=== PATIENT | male | born 1940 | race Caucasian/White ===

== ENCOUNTER → 2024-06-22 | Outpatient (CLI) | payer MEDICARE, OTHER, SELFPAY ==
--- NOTE | 2024-06-22 14:01 | CR.HP_ITS ---
CR - History & Physical General Arrival date:: 06/22/24 Arrival time:: 14:02 Date of Referral:: 03/21/24 Date of CR Evaluation:: 06/22/24 Referring Physician: Dr. Viktor Jacobs Primary Diagnosis: ST elevation NE involving the LAD onset 02/25/24 History of Present Cardiac Event Onset Date Acute Myocardial Infarction within 12 months:: Yes Sleep Disorder Evaluation Hx of Sleep Apnea: No Do you snore loudly (louder than talking or can be heard through closed doors)?: No Do you often feel tired/ fatigued/ sleepy during daytime?: No Has anyone observed you stop breathing during sleep?: No History of Hypertension (for STOP score): No STOP Results: Negative Advanced Directives Advanced Directives Power of Family Medicine Physician Assistant: Yes Living Will: Yes Advance Directives Information Provided: Yes Advance Directives on File: No DNR Order?:: No Past Medical History Covid-19 Screening Physicial Symptoms Other Clinical Concerns Exposure Risk Pertinent Comorbidities 65 years or older:: Yes Has a serious heart condition:: Yes Social History Smoking History Smoking Status: Former smoker Years Smokin Packs Smoked per Day: 1.5 (stopped 45 years ago) Alcohol Use Alcohol Usage: No Occupation Occupation (List type of work in comments):: Retired Hobbies, Recreation, Social Activities Hobbies: Other (tractors) Recreational Activities: I am able to engage in a few activities Social Environment Status Marital Status: Current Living Arrangements Living Environment:: Spouse Children How many children do you have?: 1 Do any of your children live nearby?: Yes Safety Do you feel safe in your surroundings?: Yes Assistance Do you need any assistance at home?: no Review of Systems Review of Systems Hints Review of Present Symptoms: Reports Shortness of Breath with Exertion, Dizziness/Lightheadedness, Fatigue and Appetite - Special Diet; Denies Shortness of Breath at Rest, PVD, Operative Discomfort, Angina, Wound Healing, Heart Arrhythmia/Irregularities, Appetite - Normal, Sleep - Normal or Sexual Changes Pain Is Patient Pain Free?: No Pain Location: back Pain Level: 02/26 Risk Factor Assessment Chief Complaint Chief Complaint: ST elevation NE involving the LAD onset 02/25/24 Vital Signs Pulse Ox: 98 Blood Pressure: 108/60 Pulse Pulse Rate: 90 Diabetes Diabetic History: Type II Nutrition Referral for Diabetes: No Obesity Height: 5 ft 10 in Weight:: 161 lb Weight in Pounds: 161.0 lbs Body Mass Index (BMI): 23.1 Nutritional Referral for Obesity: No Physical Inactivity Physical Inactivity: None Risk Stratification Risk Guidelines: Lowest Risk: Risk Factor for Smoking, Moderate Risk: Risk Factor for Obesity, Risk Factor for Hypertension and Risk Factor for Depression and Highest Risk: Risk Factor for Dyslipidemia, Risk Factor for Diabetes and Risk Factor for Sedentary Lifestyle For Smoking Smoking Risk Guidelines For Dyslipidemia Dyslipidemia Risk Guidelines For Diabetes Mellitus Diabetes Risk Guidelines For Obesity/Overweight Obesity/Overweight Risk Guidelines For Hypertension Hypertension Risk Guidelines For Sedentary Lifestyle Sedentary Lifestyle Risk Guidelines For Depression Depression Risk Guidelines Motivation Motivation to Participate On a scale of 1 to 10, how prepared are you to commit to attending program?: 5 What do you see as barriers to successfully being able to complete the program?: nothing What do you see as the benefits of succesfully completing the program? In other words, what do you hope to get out of participating in the program?: more energy, stronger Are there issues you are dealing with that will interfere with completing the program?: no Do you have a spouse or signficant other, family or friends who will help support you to complete the program?: yes
--- NOTE | 2024-06-22 14:09 | CR.ITP_ITS ---
Diagnosis General Information Admitting Diagnosis: ST elevation IA involving the LAD onset 02/25/24 Personal Learning Style:: Audio/Visual Barriers to Learning: No Barriers Stage of change r/t lifestyle modifications:: Contemplation Gave educational material for:: Treating Heart Disease, How The Heart Works, What it means to have Heart Disease, How Coronary Artery Disease is Diagnosed, Heart Procedures, What Heart Medications Do, Risk Factors & Modifications, Living an Active Life, Nutrition, Emotions & Heart Disease, Stress Management & Relaxation and Sleep Disorders & Heart Disease Education/Goals Cardiac Rehabilitation Goals Personal Goals: Initial Assessment: Improve management of stress and emotions, Improve energy level, Get back to work, or to resume activities faster, Improve muscle strength and endurance and Control risk factors (learn risk factor modification) Scale for measuring improvement of personal goals Diagnosis & Disease Process Outcomes/Goals: Pt IDs own risk factors & lifestyle modifications by Session 10, Verbalizes symptoms of angina & response by session 3., Pt independently manages and Other Additional Outcomes/Goals: Plan/Interventions: Assist Pt to ID & engage in lifestyle modification to reduce CVD risk, Instruct on individual risk factors, Review symptoms of angina & emergency actions, Review secondary diagnosis & identify educational needs. and Other see comment 30 day Reassessments:: Not Met 30 day Reassessments:: Not Met 30 day Reassessments:: Not Met 30 day Reassessments:: Not Met Final Reassessments:: Not Met Safety Referral to Physical Therapy: No Referral to [facility] Case Management: No Fall Risk Assessed:: Yes Assistive Devices:: Cane Exercise - Initial Assessment Visit Date of Eval: 06/22/24 (initial eval ) Mets: Pre-: >3 METS for 30 minutes by discharge, >5 METS for 30 minutes by discharge, >7 METS for 30 minutes by discharge and Unable to meet goal due to: (see comment below) Physician Prescribed Exercise Modalities: Treadmill, Rower, Schwinn Airdyne AD-7, SciFit Stepper, SciFit Pro- II Ergometer and SciFit Lateral [place] Frequency: 2x/week for 18 weeks [36 sessions] and 3x/week for 12 weeks [36 sessions] Intensity: 60-80% of age predicted maximum heart rate reserve Duration: 30 - 45 minutes Current METSs:: 3 Target Heart Rate:: 81-102 Resting Blood Pressure: 106/60 EKG Type: SR RBBB with left axis bifascicular block Outcomes & Goals Goals:: Verbalizes understanding of THR, RPE & goal METS by session 6, Documents in home exercise log/reports 30 min aerobic 5 day/wk by DC, Demonstrates accurate pulse taking by DC and Other additional outcome/goals: see below Intervention & Plan Exercise Program Goals: Instruct on personal THR & RPE, Instruct on MET level & personal MET goal, Show patient to take own pulse /validate performance until accurate, Instruct on home exercise and Other additional plan/int Physical Activity Home Exercise Physical Activity - Home Exercise: Safe Exercise, Warm-up, Self-monitoring, Cool-Down, Home Exercise > 30 min Daily and Sitting Time <3 hours/daily Outcomes & Goals Outcomes/Goals: Demonstrates correct Warm-up/exercise Cool-Down (S3) if = 2.5 METs, Verbalizes symptoms of exercise intolerance by Session 3 (S3), Demonstrate safe equipment use (S3) & follows exercise prescrition (6) and Other: See below Intervention & Plan Plan/Intervention: Instruct warm-up & cool-down if exercising at > 2 METs, Instruct on symptoms of exercise intolerance & actions to take, Instruct & monitor on saf, Assess intial functional capacity & safety risk and Other See below Nutrition - Initial Assessment Program Goals Nutrition Program Goals Patient has diagnosis of Hyperlipidemia (ICD E78)?: Yes Visit Date of Eval: 06/22/24 (initial eval ) Cholesterol/Lipids (Other Core Measures) Determine presence & major risk factors that modify LDL goal: Cigarette smoking, Hypertension or hypertensive medication, Low HDL cholesterol <40 mg/dL*, Family history of premature CHD in Male < 55 years: female <65 yearsFa and Age men > 45 years; women >/= 55 years Outcomes/Goals: Pt IDs own risk factors & lifestyle modifications by Session 10, Verbalizes symptoms of angina & response by session 3., Pt independently manages and Other Additional Outcomes/Goals: Intervention/Plan: Advocate for lipid panel cholesterol medication if applicable, Instruct on personal lipid levels & lipid goals/NCEP guidelines, Instruct on cholesterol and Other additional plan/int Referral to dietitian:: No Diabetes (Other Core Measures) Diabetes Type: Diagnosis Type II ICD-10 E11 Non-Insulin Dependent?: Yes Weight Mgt (Other Care) Height: 5 ft 10 in Weight:: 161 lb BMI: 23.1 Diagnosis Overweight/Obesity BMI> 30% ICD-10 E66: No Diagnosis High BMI/Morbid Obesity BMI> 35% ICD-10 Z68: No Outcomes/Goals: Pt sets, maintains & shows weight loss goal & trend during rehab and Other additional outcomes/goals Intervention/Plan: Instruct on ideal BMI & set weight loss goal w/patient, Assist pt to ID & incorporate diet changes for weight loss by S9, Refer to Structured Weight Loss program as appropriate, Encourage goal of using 250- 300dcal per session for weight loss and Other additional plan/interventions Healthy Eating Habits Will attend diet classes:: Yes Outcomes/Goals:: Consume diet rich in vegs,fruits,whole grain/high fiber,fish,lean meat, Limit sat/trans fats,cholesterol & added salts & sugars and Other additional outcome/goals: Intervention/Plan:: Assess current eating habits and Other Additional plan/interventions Education Gave educational materials for:: Signs & symptoms of hypoglycemia, Signs & symptoms of hyperglycemia, Relate diabetes to coronary artery disease and Healthy eating Core - Initial Assessment Visit Date of Eval: 06/22/24 (initial eval ) Medication Compliance Preventative Medication(s):: Aspirin, Clopidogrel/P2Y12 inhibit, Statin/lipid an d Beta kwame Doesn?t believe in the benefits of treatment?: No Believes medications are unnecessary or harmful?: No Has a concern about medication side effects?: No Expresses concern over the cost of medications?: No Outcomes/Goals: Verbalizes medications,desired effect & common side effects @ DC, Pt self-reports following medication regimen, Keeps card in wallet w/medications listed by DC and Other additional outcome/goals: Interventions/plans: Instruct on medication effects & side effects, Review medication list w/patient every two weeks, Instruct importance of taking meds as ordered & assist problem solving and Other additional Tobacco Use Tobacco Use: Non-smoker How long ago did you quit using tobacco products?: Greater than or equal to 6 months ago Years Smokin Do you use smokeless tobacco?: No Hypertension Resting Blood Pressure:: 108/60 [place] [employer] Hypertension Guidelines Outcomes/Goals: Able to verbalize/achieve optimal blood pressure <130/80, Incorporates diet changes & exercise for blood pressure control by DC and Other additional outcomes/goals Interventions/plan: Instruct on optimal blood pressure, hypertension & medications, Instruct on effects of sodium, alcohol, stress, exercise &hypertension and Other additional plan/interventions Tobacco Cessation Referral Smoking Cessation Referral:: No Individual Education/Counseling:: No Education Schedule Given:: Yes Psychosocial - Initial Assess VIsit Date of Eval: 06/22/24 (initial eval ) History of Emotional Disorders: Depression (pt states he has mild depression 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 ) Target Goals Target Goals Psychosocial Test Tool Used:: Jorge Banks QOL Cardiac and PHQ-9 Questionnaire phq-9 Severity Referral to Behavioral Health PS - Interventions: Yes: Attend Stress Management Classes Outcomes/Goals: See list Psychosocial Outcomes/Goals:: ID's personal stressors & 2 strategies to manage stress by discharge and Other Additional outcome/goals: Intervention/Plan: See List Interventions/Plan:: Assess stressors,coping strategies & signs of derpression on admission, Instruct/assist pt to develop coping & personal stress Mgt strategies, Refer to Behavioral Health if appropriate, Refer to Physician if appropriate, Instruct patient to recognize signs & symptoms of depression, Instruct patient to recog and Other additional plan/intervention RODOLFO-Q SV Test Statements CAD is a disease of the arteries in the heart: False Examples of risk factors for heart disease: True Angina is chest pain or discomfort: True The benefits of resistance training include: True Eating more meat and dairy products: I Don't Know Anti-platelet medications such as aspirin are important: True The only effective way to manage stress: I Don't Know An exercise warm-up slowly increases heart rate: True Prepared, processed foods usually have high sodium: True Depression is common after a heart attack: I Don't Know The statin medications lower cholesterol: True To control blood pressure, lower the amount of sodium: True If someone gets chest discomfort during walking: I Don't Know Transfats are partially hydrogenated vegetable oils: I Don't Know Sleep apnea that is not treated increases the risk: I Don't Know To control cholesterol, one should become a vegetarian: False Someone knows if he/she is exercising at the right level: I Don't Know Diabetes cannot be prevented with exercise & health eating: I Don't Know Stress is a large risk for heart attack: True A diet that can help lower blood pressure is rich in: True Total Score Total Correct Responses: 12 Nutrition Survey Nutrition Survey Instructions Scoring Instructions Exercise - 30-day Assessment Physician Prescribed Exercise Modalities: Treadmill, Rower, Schwinn Airdyne AD-7, SciFit Stepper, SciFit Pro- II Ergometer and SciFit Lateral Medical Massage Therapist Exercise - 60-day Assessment Physician Prescribed Exercise Modalities: Treadmill, Rower, Schwinn Airdyne AD-7, SciFit Stepper, SciFit Pro- II Ergometer and SciFit Lateral [place] Exercise - 90-day Assessment Physician Prescribed Exercise Modalities: Treadmill, Rower, Schwinn Airdyne AD-7, SciFit Stepper, SciFit Pro- II Ergometer and SciFit Lateral [place] Exercise - Final/Discharge Physician Prescribed Exercise Modalities: Treadmill, Rower, Schwinn Airdyne AD-7, SciFit Stepper, SciFit Pro- II Ergometer and SciFit Lateral [place] Frequency: 2x/week for 18 weeks [36 sessions] and 3x/week for 12 weeks [36 sessions] Intensity: 60-80% of age predicted maximum heart rate reserve Current METSs:: 3 Target Heart Rate:: 81-102 Nutrition - 30-Day Assessment Weight Mgt (Other Care) Height: 5 ft 10 in Weight:: 161 lb BMI: 23.1 Nutrition - 60-Day Assessment Weight Mgt (Other Care) Height: 5 ft 10 in Weight:: 161 lb BMI: 23.1 Core - 30-Day Assessment Tobacco Use Years Smokin Core - Final Assessment Hypertension Resting Blood Pressure:: 108/60 [employer] [employer] Hypertension Guidelines Core - 60-Day Assessment Hypertension Resting Blood Pressure:: 108/60 [place] [employer] Hypertension Guidelines Psychosocial - 30-Day Assess Target Goals Target Goals Referral to Behavioral Health PS - Interventions: Yes: Attend Stress Management Classes Psychosocial - 60-Day Assess Target Goals Target Goals Referral to Behavioral Health PS - Interventions: Yes: Attend Stress Management Classes Psychosocial - 90-Day Assess Target Goals Target Goals Referral to Behavioral Health PS - Interventions: Yes: Attend Stress Management Classes Psychosocial - Final Assessmen Target Goals Target Goals Referral to Behavioral Health PS - Interventions: Yes: Attend Stress Management Classes Nutrition - 90-Day Assessment Weight Mgt (Other Care) Height: 5 ft 10 in Weight:: 161 lb BMI: 23.1 Nutrition - Final Assessment Program Goals Patient has diagnosis of Hyperlipidemia (ICD E78)?: Yes Weight Mgt (Other Care) Height: 5 ft 10 in Weight:: 161 lb BMI: 23.1
[2024-06-22 14:21] VITALS: BP 108/60; PULSE 90; O2SAT 98; BMI 23.1
[2024-06-22 14:46] VITALS: BP 106/60; BP 108/60; BMI 23.1
== END | disposition home or self-care (01) ==
PROVIDERS: PCP Family Medicine; Referring Provider Internal Medicine Cardiovascular Disease; Visit Provider Internal Medicine Cardiovascular Disease
DX: I21.02 ST elevation (STEMI) myocardial infarction involving left anterior descending coronary artery (principal)

== ENCOUNTER 2024-06-27 14:20 | Outpatient (RCR) | payer MEDICARE, OTHER, SELFPAY ==
[2024-06-22 14:46] VITALS: BMI 23.1
== END 2024-07-19 23:59 ==
LOC: CR 14:20
PROVIDERS: PCP Family Medicine; Referring Provider Internal Medicine Cardiovascular Disease; Visit Provider Internal Medicine Cardiovascular Disease
DX: I21.02 ST elevation (STEMI) myocardial infarction involving left anterior descending coronary artery (principal)

== ENCOUNTER 2024-06-29 14:05 | Inpatient (IN) | payer MEDICARE, OTHER, SELFPAY ==
[2024-06-22 14:46] VITALS: BMI 23.1
[2024-06-29] VITALS (8 sets, daily range): BP systolic 97–113; BP diastolic 57–89; PULSE 44–84; RESP 14–24; TEMP 36.4–36.9; O2SAT 83–100; BMI 27.0; BMI 25.7
--- NOTE | 2024-06-29 15:49 | EDS_ITS ---
HPI HPI - GI History of Present Illness Chief Complaint: GI Bleed Informant: patient and spouse/S.O. Narrative Narrative: 84-year-old male presenting with melena. The states it has been for a few days, the patient states he thinks it has been for a week or more. He is feeling malaised and weak. He has dyspnea with exertion but that is not new. He had a minor fall couple days ago from feeling weak, injured both of his hands he denies any significant pain or disability right now. He was on aspirin but stopped that about a month ago due to having transient amount of bright of blood per rectum right after having an iron infusion, this is the second infusion he has had the second time that happened. He denies any abdominal pain, nausea, vomiting. Takes no anticoagulants. [facility] Medical History (Updated 06/29/24 @ 17:[address] Santino Cao MD) Iron deficiency anemia High cholesterol Diabetes mellitus, type II HTN (hypertension) Ulcer Home Medications ?Medication ?Instructions ?Recorded ?Last Taken ?Type aspirin 81 mg capsule 81 mg PO DAILY 06/29/24 Unknown History carvedilol 3.125 mg tablet 3.125 mg PO BID 06/29/24 Unknown History ciclopirox 8 % topical solution topical QWEEK 06/29/24 Unknown History clopidogrel 75 mg tablet 75 mg PO DAILY 06/29/24 Unknown History glyburide 5 mg tablet 5 mg PO BID 06/29/24 Unknown History losartan 25 mg tablet 12.5 mg PO DAILY 06/29/24 Unknown History metformin 1,000 mg tablet 1,000 mg PO BID 06/29/24 Unknown History pantoprazole 40 mg tablet,delayed 40 mg PO BID 06/29/24 Unknown History release rosuvastatin 20 mg tablet 20 mg PO DAILY 06/29/24 Unknown History Allergy/AdvReac Type Severity Reaction Status Date / Time oxycodone AdvReac CONFUSION Verified 06/29/24 14:09 tramadol AdvReac CONFUSION Verified 06/29/24 14:09 Social History Smoking Status: Former smoker ROS ROS ED Constitutional Constitutional ED: Reports malaise and weakness; Denies chills or fever(s) Eyes Eyes: Denies change in vision or diplopia ENT ENT ED: Denies rhinorrhea or sore throat Cardiovascular Cardiovascular: Denies chest pain or palpitations Respiratory/Chest Respiratory/Chest: Reports dyspnea on exertion; Denies cough Gastrointestinal Gastrointestinal: Reports melena; Denies abdominal pain, nausea or vomiting Genitourinary Genitourinary ED: Denies dysuria or hematuria Musculoskeletal Musculoskeletal: Denies back pain or neck pain Integumentary Denies abscess or rash Neurologic Neurologic: Denies headache(s), paresthesias or weakness Psychiatric Psychiatric: Denies anxiety or suicidal thoughts EXAM Physical Exam Const Vital Signs: 06/29/24 14:06 06/29/24 16:06 Temperature 97.8 F Temperature Source Oral Pulse Rate 76 Respiratory Rate 16 14 Blood Pressure 105/65 97/57 L Blood Pressure Mean 78 70 Pulse Ox 99 96 Oxygen Delivery Method Room Air Room Air Positive well nourished and well developed General Appearance ED: well developed and NAD HEENT Reports moist mucous membranes normocephalic and atraumatic Eyes PERRL and EOMs intact bilaterally Neck full ROM and supple Resp normal respiratory effort and clear to auscultation bilaterally Cardio regular rate, regular rhythm and peripheral pulses 2+ throughout Heart Sounds: murmur systolic III/ crescendo GI non-tender and non-distended GI Narrative: On rectal exam no tenderness. No active bleeding. Dark stool specimen present sent for Hemoccult. Auscultation: normoactive bowel sounds Palpation: soft Back/Spine no CVA tenderness General Back: other FROM Extremity normal to inspection General Extremety ED: Negative for edema, pulses abnormal or tenderness General Extremity: Negative for edema or pulses abnormal Neuro oriented x3, CN's II-XII intact bilaterally and no sensory deficits noted Sensorium / Orientation: awake and alert Motor Exam: strength 5/5 throughout Skin no rashes or lesions noted and no wounds MDM MDM MDM Narrative Medical decision making narrative: Suspect upper GI bleed. Patient is anemic and has an elevated BUN and his Hemoccult is positive. Empiric IV Protonix 40 mg ordered and given. Clinically and hemodynamically he is stable. His troponin is elevated, this may be related to his renal insufficiency, we will continue to follow that. His EKG shows no acute injury. Discussed with GI and hospitalist for admission. Agree no transfusion at this time. Lab Data Attestation: I reviewed the patient's lab results. (no old avail for comparison) Labs: Laboratory Results - last 24 hr 06/29/24 15:30 WBC 5.2 RBC 2.82 L Hgb 8.5 L Hct 26.5 L MCV 94.0 MCH 30.1 MCHC 32.1 RDW Std Deviation 69.2 H RDW Coeff of Artemio 20.1 H Plt Count 169 MPV 11.0 Immature Gran % (Auto) 0.200 Neut % (Auto) 66.9 Lymph % (Auto) 20.2 [place] % (Auto) 10.5 H Eos % (Auto) 1.4 Baso % (Auto) 0.8 Absolute Neuts (auto) 3.5 Absolute Lymphs (auto) 1.04 Nucleated RBC % 0 Differential Comment SCANNED Hypochromasia 1+ Anisocytosis 1+ Sodium 137 Potassium 4.7 Chloride 111 H Carbon Dioxide 18.0 L Anion Gap 8 BUN 41 H Creatinine 1.94 H Estim Creat Clear Calc 29.27 Est GFR (MDRD) Af Amer 43 L Est GFR (MDRD) Non-Af 35 L BUN/Creatinine Ratio 21.1 H Glucose 127 H Calcium 8.5 Total Bilirubin 0.50 AST 47 H ALT 37 Alkaline Phosphatase 438 H Troponin I High Sens 115 H Total Protein 6.8 Albumin 2.3 L Globulin 4.5 H Albumin/Globulin Ratio 0.5 L Blood Type B NEGATIVE Antibody Screen NEGATIVE Rhythm Strip Rhythm Strip: Sinus Rhythm Rate: 75 Ectopy: None EKG Initial EKG: Attestation: I personally reviewed and interpreted this EKG as follows: Interpretation: Sinus Rhythm, No Acute Injury Pattern, RBBB and Inverted T-Waves (V1-3) Prior EKG tracings: not available for review Prior: No Prior Management Discussion w/another healthcare provider: Hospitalist and Feather [employer]her (GI doctor friend) Discharge Plan Dx/Rx/DC Orders Clinical Impression: Acute upper GI bleed, ABLA (acute blood loss anemia), Renal insufficiency, Iron deficiency anemia Disposition Disposition: Acute Care Hospital [facility]
--- NOTE | 2024-06-29 15:52 | EKG12_ITS ---
Test Reason : Blood Pressure : */* mmHG Vent. Rate : 75 BPM Atrial Rate : 75 BPM P-R Int : 154 ms QRS Dur : 144 ms QT Int : 428 ms P-R-T Axes : 5 -52 31 degrees QTcB Int : 477 ms Normal sinus rhythm Right bundle branch block Left anterior fascicular block Bifascicular block Septal infarct , age undetermined Possible Lateral infarct , age undetermined Abnormal ECG Confirmed by YVONNE PEREA, RONAN ([id number]), fan mail editor ALYCIA MAN ([id number]) on 07/06/2024 2:10:01 P M Referred By: Santino Cao Confirmed By: RONAN RUSSELL MD
[2024-06-29 16:01] LABS: Absolute Lymphocyte Count 1.04 X10^3/uL (0.83-4.51); Absolute Neutrophil Count 3.5 X10^3/uL (2.0-7.7); Basophil# 0.04 X10^3/uL; Basophil% 0.8 % (0-1); Eosinophil# 0.07 X10^3/uL; Eosinophils% 1.4 % (0-5); Hematocrit 26.5 % (40-54); Hemoglobin 8.5 g/dL (13.0-16.5); Lymphocyte # 1.04 X10^3/ul (0.83-4.51); Lymphocyte % 20.2 % (19-41); Mean Corp Hgb Conc 32.1 g/dL (32-36); Mean Corpuscular Hgb 30.1 pg (27.0-32.0); Monocyte# 0.54 X10^3/uL; Monocyte% 10.5 % (0-10); NRBC Flagged by Analyzer 0 % (0-5); Neutrophil # 3.45 X10^3/uL (2.7-7.7); Neutrophil % 66.9 % (47-70); POSITIVE MORPHOLOGY YES; Platelet Count 169 K/mm3 (150-450); RBC Distribution Width CV 20.1 % (11.6-14.6); RBC Distribution Width SD 69.2 fl (35.1-43.9); Red Blood Count 2.82 M/mm3 (4.6-6.2); White Blood Count 5.2 K/mm3 (4.4-11.0)
[2024-06-29 16:17] LABS: Differential Indicated SCAN CRITERIA MET
[2024-06-29] MEDS: Pantoprazole Sodium 40 MG in 0.9% Normal Saline (100mL MB+) 100 ML 330 MG IV ×2 (16:19→21:27)
[2024-06-29 16:26] LABS: ALB/GLOB Ratio 0.5 RATIO (0.9-2.4); AST(SGOT) 47 U/L (15-37); Alanine Aminotransfer ALT/SGPT 37 U/L (16-61); Albumin, Serum 2.3 g/dL (3.2-5.0); Alkaline Phosphatase 438 U/L (45-117); Anion Gap 8 (5-15); BUN 41 mg/dL (7-18); BUN/Creat Ratio 21.1 RATIO (10-20); Calcium,Total 8.5 mg/dL (8.5-10.1); Chloride 111 mmol/L (98-107); Creatinine, Serum 1.94 mg/dL (0.70-1.30); EST Glomerular Filtration Rate 35 mL/min (>60); Est Glom Filt Rate - Afr Amer 43 mL/min (>60); Estimated Creatinine Clearance 29.27 ml/min; Globulin 4.5 g/dL (2.2-4.2); Glucose 127 mg/dL (74-106); Potassium 4.7 mmol/L (3.5-5.1); Protein, Total 6.8 g/dL (6.4-8.2); Sodium Level 137 mmol/L (136-145); Troponin-I HS 115 pg/mL (3.0-78.0)
[2024-06-29 16:51] LABS: Anisocytosis 1+; Differential Comment SCANNED; Hypochromasia 1+
--- NOTE | 2024-06-29 17:43 | HP.PCM.HOS_ITS ---
HPI - General General Date of Admission: 06/29/24 Date of Service: 06/29/24 Chief Complaint: Dark stools and worsening weakness HPI Narrative EMERSON GALAN, is a 84 M who presented to [facility] ED on 06/29/2024 with dark stools and worsening weakness. Patient has complicated recent past medical history, see below for full details. Patient was noted to be a poor historian but he reported having intermittent dark stools for the past several days. noted that these intermittent stools have been going on for about 1 week. She was trying to reach his GI doctor through [facility] to discuss further but could not get hold of them. She noticed that patient seemed to be getting weaker than his normal so she brought him in for further evaluation. In the ED patient was mildly hypotensive to the 90s over 50s but otherwise hemodynamically stable on room air. Labs notable for hemoglobin 8.5, MCV 94, creatinine 1.94, BUN 41, bicarb 18, AST 47, ALT 37, alk phos 438, INR 1.3. Troponin trend 115 to 119. EKG with no ST changes noted. Case was discussed with Dr. Mcgee who accepted the patient for admission. Hospitalist was then contacted for admission. I saw the patient at bedside in the ED, was present. Patient was mildly fatigued appearing but otherwise laying back comfortably in bed. He made appropriate eye contact with me and appeared to understand my questions but did not always answer appropriately. He was able to state that he was at [facility] and that it was June 2024. He appeared frustrated at times and stated he had difficulty remembering certain things. He did report feeling his belly felt somewhat distended. Also reported some lower extremity swelling and on exam he had pitting edema that was painful with palpation. He denied any shortness of breath at rest but did report shortness of breath with exertion. Denied any fevers or chills. notably downplayed patient's inability to answer some questions and stated that at times he was somewhat confused but this seemed to wax and wane without any clear pattern. Patient has primarily followed with [facility] but also followed with a GI physician through . Records thoroughly reviewed in [facility]. Patient was hospitalized at [facility] in December for worsening fatigue. Was found to have acute anemia with hemoglobin 7.2 down from 12.6 in November 2022. Had EGD done that showed nonbleeding gastric ulcers. Hemoglobin stabilized after this and he was discharged home. Was noted that he saw a GI physician through in late 2022 for concern for cirrhosis. Had follow-up EGD on 02/17 that showed ulcers with varices, portal hypertensive gastropathy and gastritis. He was then hospitalized in February for a STEMI. Presented with chest pain and was found to have ST elevations in V3 through V6. Had angioplasty and RIA x 2 to the mid and distal LAD done. TTE showed EF of 45% and moderate to severe aortic stenosis. He was ultimately discharged home on aspirin, Brilinta, Farxiga, losartan, Coreg, Protonix twice daily and rosuvastatin. His most recent CBC on 05/31 showed a hemoglobin of 9.5. BMP on 06/07 showed creatinine 1.54 and it appears baseline creatinine is around 1.3-1.5. Patient had a virtual visit with the GI physician on 06/15. This physician noted that overall the patient exhibited severe fatigue with failure to thrive and that there was functional and cognitive decline. He noted there was documentation of memory loss and cognitive decline in prior notes as well. Noted that downplayed these things during his conversation as well. Was also noted that patient had both ARB and SGLT2 inhibitor discontinued due to hypotension. [facility] Medical History (Updated 06/29/24 @ 17:[address] Santino Cao MD) Iron deficiency anemia High cholesterol Diabetes mellitus, type II HTN (hypertension) Ulcer Home Medications ?Medication ?Instructions ?Recorded ?Last Taken ?Type aspirin 81 mg capsule 81 mg PO DAILY 06/29/24 Unknown History carvedilol 3.125 mg tablet 3.125 mg PO BID 06/29/24 Unknown History ciclopirox 8 % topical solution topical QWEEK 06/29/24 Unknown History clopidogrel 75 mg tablet 75 mg PO DAILY 06/29/24 Unknown History glyburide 5 mg tablet 5 mg PO BID 06/29/24 Unknown History losartan 25 mg tablet 12.5 mg PO DAILY 06/29/24 Unknown History metformin 1,000 mg tablet 1,000 mg PO BID 06/29/24 Unknown History pantoprazole 40 mg tablet,delayed 40 mg PO BID 06/29/24 Unknown History release rosuvastatin 20 mg tablet 20 mg PO DAILY 06/29/24 Unknown History Allergy/AdvReac Type Severity Reaction Status Date / Time oxycodone AdvReac CONFUSION Verified 06/29/24 14:09 tramadol AdvReac CONFUSION Verified 06/29/24 14:09 Social History Smoking Status: Former smoker ROS Constitutional Constitutional: Reports fatigue; Denies chills or fever(s) Cardiovascular Cardiovascular: Reports dyspnea on exertion; Denies chest pain Respiratory/Chest Respiratory/Chest: Denies cough, productive cough or shortness of breath at rest Gastrointestinal Gastrointestinal: Reports melena; Denies abdominal pain, nausea or vomiting Neurologic Neurologic: Denies dizziness or headache(s) Vital Signs Vital Signs Vital Signs: 06/29/24 14:06 06/29/24 16:06 Temperature 97.8 F Temperature Source Oral Pulse Rate 76 Respiratory Rate 16 14 Blood Pressure 105/65 97/57 L Blood Pressure Mean 78 70 Pulse Ox 99 96 Oxygen Delivery Method Room Air Room Air Weight Weight: 85.4 kg Body Mass Index (BMI) 27.0 Physical Exam Const alert, oriented x3, no apparent distress and average body habitus Constitutional Narrative: Elderly male, mildly fatigued appearing, alert and oriented x 3 but generally appeared to have some degree of cognitive impairment and had difficulty with answering some high-level questions, was otherwise sitting up comfortably in bed and in no acute distress. General Appearance: cooperative HEENT normocephalic, head/scalp atraumatic, hearing grossly normal bilaterally, nasal mucous membranes and turbinates normal and moist oral mucous membranes Eyes PERRL, EOMs intact bilaterally and conjunctivae normal Neck full ROM Chest inspection of chest normal Resp normal respiratory effort, normal air movement, no use of accessory muscles and clear to auscultation bilaterally Cardio regular rate, regular rhythm, no murmurs and peripheral pulses 2+ throughout GI GI Narrative: Abdomen distended and with small fluid wave noted. Otherwise soft and nontender to palpation. Back/Spine normal ROM Extremity full ROM Extremity Narrative: +2-3 lower extremity pitting edema noted up to the knees. Skin no rashes or lesions noted Neuro moves all extremities Speech: speech normal Results Lab / Micro Data 06/29/24 15:30 06/29/24 15:30 Labs: Laboratory Results - last 24 hr 06/29/24 15:30: WBC 5.2, RBC 2.82 L, Hgb 8.5 L, Hct 26.5 L, MCV 94.0, MCH 30.1, MCHC 32.1, RDW Std Deviation 69.2 H, RDW Coeff of Artemio 20.1 H, Plt Count 169, MPV 11.0, Immature Gran % (Auto) 0.200, Neut % (Auto) 66.9, Lymph % (Auto) 20.2, M cait % (Auto) 10.5 H, Eos % (Auto) 1.4, Baso % (Auto) 0.8, Absolute Neuts (auto) 3.5, Absolute Lymphs (auto) 1.04, Nucleated RBC % 0, Differential Comment SCANNED, Hypochromasia 1+, Anisocytosis 1+, Sodium 137, Potassium 4.7, Chloride 111 H, Carbon Dioxide 18.0 L, Anion Gap 8, BUN 41 H, Creatinine 1.94 H, Estim Creat Clear Calc 29.27, Est GFR (MDRD) Af Amer 43 L, Est GFR (MDRD) Non-Af 35 L, BUN/Creatinine Ratio 21.1 H, Glucose 127 H, Calcium 8.5, Total Bilirubin 0.50, A ST 47 H, ALT 37, Alkaline Phosphatase 438 H, Troponin I High Sens 115 H, Total Protein 6.8, Albumin 2.3 L, Globulin 4.5 H, Albumin/Globulin Ratio 0.5 L, Blood Type B NEGATIVE, Antibody Screen NEGATIVE Micro: Microbiology 06/29/24 16:00 Stool Stool Occult Blood (TONA) - Final Occult Blood Positive Rhythm Strip Rhythm Strip: Sinus Rhythm Rate: 75 Ectopy: None Assessment & Plan Assessment/Plan (1) Acute upper GI bleed: (2) ABLA (acute blood loss anemia): (3) Renal insufficiency: PLAN: Plan Patient is an 84-year-old male who presented [facility] ED on 06/29/2024 with dark stools and worsening weakness. 1. Concern for recurrent upper GI bleed with acute on chronic blood loss anemia ? Admit under inpatient status to PCU. GI consulted. Hemoglobin 8.5 on admit, slightly down from last hemoglobin 9.5 on 05/31. Had upper GI bleed in December and EGD showed nonbleeding gastric ulcers. Repeat EGD on 02/17 showed ulcers with varices, portal hypertensive gastropathy and gastritis. Patient has had to remain on dual antiplatelet therapy given recent history of STEMI, suspect recurrent upper GI bleed in setting of DAPT. N.p.o. at midnight with plan for EGD tomorrow. IV PPI twice daily. Continuing aspirin and Plavix as noted below. Follow-up a.m. CBC. 2. Recent history of STEMI with stenting, history of CAD, hypertension, hyperlipidemia ? Hospitalized at [facility] with STEMI in February. Had RIA x 2 placed to the mid and distal LAD. Recommendation per cardiology was for uninterrupted DAPT for 1 year. Given this recommendation, will continue aspirin and Plavix despite concern for recurrent GI bleed as noted above. Borderline hypotension with CESIA on admit, will hold home beta-kwame and MATEUS inhibitor. 3. Concern for cirrhosis with ascites, concern for hepatic encephalopathy ? GI consulted as above. Follows with both main campus medical center and GI, see HPI for further details. Had abdominal distention with fluid wave noted on exam on admit. Abdominal ultrasound showed hepatic cirrhosis with ascites and diffuse fatty infiltration of the liver with no focal lesions identified. MELD score of 18 on admit. Radiology consulted for diagnostic and therapeutic paracentesis. Ammonia level ordered. Appreciate further GI recommendations. 4. Acute on chronic debility ? PT/OT/case management consulted. 5. CESIA on CKD stage IIIa ? Creatinine 1.94 on admit, baseline around 1.3-1.5. Suspect mild prerenal CESIA but cannot rule out some degree of hepatorenal syndrome. Gave 500 cc normal saline bolus and 1 dose of IV albumin on admit. Follow-up a.m. BMP and monitor urine output. Urine studies ordered. 6. Type 2 diabetes mellitus ? Blood glucose 127 on admit. A1c 6.6%. Hold home metformin and glyburide. Will treat with sliding scale insulin with meals while inpatient. DVT prophylaxis: SCDs CODE STATUS: Full code, verified. Verified with patient and on admission. Expected disposition: TBD Total clinical time spent by myself addressing the patient's medical issues, reviewing all the data, and collaborating with patient's care team: 75 minutes. Charges/Coding Visit Charges Inpatient E&M: 70040 Init Hosp L3
--- NOTE | 2024-06-29 18:16 | US_ITS ---
INDICATION: concern for cirrhosis w/ ascites EXAMINATION: Ultrasound US Abdomen Complete TECHNIQUE: [place]ajas-scale and color Doppler imaging was performed of the abdomen. COMPARISON: None. FINDINGS: LIVER: There is mild increased echogenicity. No focal hepatic lesion. No intrahepatic biliary ductal dilatation. Irregular hepatic margins suggesting cirrhosis. Scattered ascites. GALLBLADDER AND BILIARY TREE: No shadowing gallstone or gallbladder wall thickening is demonstrated. The proximal common bile duct measures 6 mm, which is within normal limits for the patient''s age. SONOGRAPHIC NEW''S SIGN: Negative. PANCREAS: Largely obscured by overlying bowel gas. SPLEEN: The spleen is normal in size and homogeneous in echotexture. KIDNEYS: There is no hydronephrosis. No shadowing calculus, focal lesion, or perinephric collection is demonstrated. VESSELS: Aorta not visualized due to bowel gas. The IVC is patent. US/Abdomen Complete IMPRESSION: Hepatic cirrhosis with ascites. Diffuse fatty infiltration of the liver, no focal lesion identified. Electronically Signed: Jarad Corrales MD at 22:02 EST ,
[2024-06-29 18:34] LABS: Troponin-I HS 119 pg/mL (3.0-78.0)
[2024-06-29 18:42] LABS: International Normalized Ratio 1.3; Prothrombin Time (Protime)PT. 16.3 SECONDS (11.7-14.9)
[2024-06-29] MEDS: 0.9% Normal Saline (500mL Bag) 500 ML IV (19:36)
[2024-06-29] MEDS: Albumin Human 25% (100 mL) 25 GM/100 ML BAG IV (19:36)
[2024-06-29 21:05] LABS: Ferritin 165 ng/mL (26-388); Iron 64 ug/dL (65-175); Iron Binding Capacity,Total 200 ug/dL (250-450)
[2024-06-29] MEDS: Atorvastatin Calcium 40 MG Tablet PO (21:21)
[2024-06-29 21:23] LABS: Hemoglobin A1c 6.6 % (3.8-5.6)
[2024-06-29 21:49] LABS: Bedside Glucose 63 mg/dL (74-106)
--- NOTE | 2024-06-29 22:28 | CON.PCM.GI_ITS ---
HPI Consult Data Date of Consult: 06/29/24 HPI Narrative Reason for Consultation: GI bleeding HPI Narrative: EMERSON GALAN, is a84 M who presented to [facility] ED on 06/29/2024 with dark stools and worsening weakness. Patient has complicated recent past medical history, see below for full details. Patient was noted to be a poor historian but he reported having intermittent dark stools for the past several days. noted that these intermittent stools have been going on for about 1 week. She was trying to reach his GI doctor through [facility] to discuss further but could not get hold of them. She noticed that patient seemed to be getting weaker than his normal so she brought him in for further evaluation. In the ED patient was mildly hypotensive to the 90s over 50s but otherwise hemodynamically stable on room air. Labs notable for hemoglobin 8.5, MCV 94, creatinine 1.94, BUN 41, bicarb 18, AST 47, ALT 37, alk phos 438, INR 1.3. Troponin trend 115 to 119. EKG with no ST changes noted. Case was discussed with Dr. Mcgee who accepted the patient for admission. Hospitalist was then contacted for admission. I saw the patient at bedside in the ED, was present. Patient was mildly fatigued appearing but otherwise laying back comfortably in bed. He made appropriate eye contact with me and appeared to understand my questions but did not always answer appropriately. He was able to state that he was at [facility] and that it was June 2024. He appeared frustrated at times and stated he had difficulty remembering certain things. He did report feeling his belly felt somewhat distended. Also reported some lower extremity swelling and on exam he had pitting edema that was painful with palpation. He denied any shortness of breath at rest but did report shortness of breath with exertion. Denied any fevers or chills. notably downplayed patient's inability to answer some questions and stated that at times he was somewhat confused but this seemed to wax and wane without any clear pattern. Patient has primarily followed with [facility] but also followed with a GI physician through . Records thoroughly reviewed in [facility]. Patient was hospitalized at [facility] in December for worsening fatigue. Was found to have acute anemia with hemoglobin 7.2 down from 12.6 in November 2022. Had EGD done that showed nonbleeding gastric ulcers. Hemoglobin stabilized after this and he was discharged home. It was noted that he saw a GI physician through in late 2022 for concern for cirrhosis. Had follow-up EGD on 02/17 that showed ulcers with varices, portal hypertensive gastropathy and gastritis. He was then hospitalized in February for a STEMI. Presented with chest pain and was found to have ST elevations in V3 through V6. Had angioplasty and RIA x 2 to the mid and distal LAD done. TTE showed EF of 45% and moderate to severe aortic stenosis. He was ultimately discharged home on aspirin, Brilinta, Farxiga, losartan, Coreg, Protonix twice daily and rosuvastatin. His most recent CBC on 05/31 showed a hemoglobin of 9.5. BMP on 06/07 showed creatinine 1.54 and it appears baseline creatinine is around 1.3-1.5. Patient had a virtual visit with the GI physician on 06/15. This physician noted that overall the patient exhibited severe fatigue with failure to thrive and that there was functional and cognitive decline. He noted there was documentation of memory loss and cognitive decline in prior notes as well. [facility] Medical History Iron deficiency anemia High cholesterol Diabetes mellitus, type II HTN (hypertension) Ulcer Home Medications ?Medication ?Instructions ?Recorded ?Last Taken ?Type aspirin 81 mg capsule 81 mg PO DAILY 06/29/24 Unknown History carvedilol 3.125 mg tablet 3.125 mg PO BID 06/29/24 Unknown History ciclopirox 8 % topical solution topical QWEEK 06/29/24 Unknown History clopidogrel 75 mg tablet 75 mg PO DAILY 06/29/24 Unknown History glyburide 5 mg tablet 5 mg PO BID 06/29/24 Unknown History losartan 25 mg tablet 12.5 mg PO DAILY 06/29/24 Unknown History metformin 1,000 mg tablet 1,000 mg PO BID 06/29/24 Unknown History pantoprazole 40 mg tablet,delayed 40 mg PO BID 06/29/24 Unknown History release rosuvastatin 20 mg tablet 20 mg PO DAILY 06/29/24 Unknown History Allergy/AdvReac Type Severity Reaction Status Date / Time oxycodone AdvReac CONFUSION Verified 06/29/24 14:09 tramadol AdvReac CONFUSION Verified 06/29/24 14:09 Surgical History Status post reverse arthroplasty of right shoulder S/P appendectomy Social History Smoking Status: Former smoker ROS Constitutional Constitutional: Denies fatigue, fever(s), poor appetite, weight gain or weight loss Gastrointestinal Gastrointestinal: Denies belching, bloating, change in bowel habits, change in stool character, chewing difficulty, coffee ground emesis, constipation, cramping, diarrhea, dyspepsia, dysphagia, early satiety, excessive flatus, fecal incontinence, heartburn, hematemesis, hematochezia, hemorrhoids, loose stools, melena, nausea, odynophagia, rectal bleeding, tenesmus, vomiting or weight changes Physical Exam Const alert, oriented x3, no apparent distress and healthy appearing General Appearance: cooperative GI normal to inspection, nondistended, normoactive bowel sounds, soft to palpation, non-tender and non-distended Percussion: normal to percussion Rectal Exam: deferred Lab / Micro Data 06/30/24 02:50 06/30/24 02:50 Labs: Laboratory Results - last 24 hr 06/29/24 15:30: Hemoglobin A1c 6.6 H, Crossmatch See Detail 06/29/24 17:45: Iron 64 L, TIBC 200 L, Iron Saturation 32.0, Ferritin 165, T roponin I High Sens 119 H 06/29/24 18:30: PT 16.3 H, INR 1.3 06/29/24 21:24: POC Glucose 63 L 06/29/24 22:17: POC Glucose 56 L 06/29/24 23:01: POC Glucose 51 L 06/29/24 23:27: POC Glucose 102 06/29/24 23:35: Ammonia 22.0, Troponin I High Sens 131 H* 06/30/24 02:50: WBC 4.5, RBC 2.51 L, Hgb 7.5 L, Hct 23.6 L, MCV 94.0, MCH 29.9, MCHC 31.8 L, RDW Std Deviation 69.2 H, RDW Coeff of Artemio 20.1 H, Plt Count 113 L, MPV 10.1, Differential Comment SCANNED, Sodium 139, Potassium 4.5, Chloride 112 H, Carbon Dioxide 20.0 L, Anion Gap 7, BUN 43 H, Creatinine 1.89 H, Estim Creat Clear Calc 30.04, Est GFR (MDRD) Af Amer 44 L, Est GFR (MDRD) Non-Af 36 L, B UN/Creatinine Ratio 22.8 H, Glucose 106, Calcium 8.6, Total Bilirubin 0.60, AST 45 H, ALT 33, Alkaline Phosphatase 390 H, Total Protein 6.5, Albumin 2.6 L, Globulin 3.9, Albumin/Globulin Ratio 0.7 L 06/30/24 03:02: POC Glucose 94 06/30/24 05:00: Urine Color Yellow, Urine Clarity Clear, Urine pH 6.0, Ur Specific [place] 1.015, Urine Protein 30 H, Urine Glucose (UA) Normal, Urine Ketones Negative, Urine Occult Blood 10 H, Urine Nitrite Negative, Urine Bilirubin Negative, Urine Urobilinogen Normal, Ur Leukocyte Esterase 500 H, Urine RBC 0 SEEN, Urine WBC 0-5 SEEN, Ur Squamous Epith Cells 0 SEEN, Ur Transition Epith Cell 0-5 SEEN, Other Crystals COMMENT, Urine Bacteria 2+, Urine Mucus 0 SEEN 06/30/24 06:58: POC Glucose 111 H 06/30/24 11:30: POC Glucose 109 H Micro: Microbiology 06/29/24 16:00 Stool Stool Occult Blood (TONA) - Final Occult Blood Positive Rhythm Strip Rhythm Strip: Sinus Rhythm Rate: 75 Ectopy: None Imaging Radiology Impression Abdomen Ultrasound 06/29/24 18:16 IMPRESSION: Hepatic cirrhosis with ascites. Diffuse fatty infiltration of the liver, no focal lesion identified. Electronically Signed: Jarad Corrales MD at 22:02 EST , Assessment & Plan Assessment/Plan (1) Acute upper GI bleed: (2) ABLA (acute blood loss anemia): (3) Renal insufficiency: PLAN: Plan Patient is an 84-year-old male who presented [facility] ED on 06/29/2024 with dark stools and worsening weakness. Concern for recurrent upper GI bleed with acute on chronic blood loss anemia ? Differential diagnosis does include variceal bleed, portal gastropathy, angiodysplastic lesions, peptic ulcer disease secondary to antiplatelet therapy. Hemoglobin 8.5 on admit, slightly down from last hemoglobin 9.5 on 05/31. Had upper GI bleed in December and EGD showed nonbleeding gastric ulcers. Repeat EGD on 02/17 showed ulcers with varices, portal hypertensive gastropathy and gastritis. Patient has had to remain on dual antiplatelet therapy given recent history of STEMI, suspect recurrent upper GI bleed in setting of DAPT. Patient has been continuing aspirin and Plavix. He will need to undergo an upper endoscopy to evaluate his upper GI tract. He was explained alternatives, risk, benefits include not withstanding bleeding, infection, sepsis, perforation, need for charge and . He will have an ASA of 3. Charges/Coding Visit Charges Inpatient E&M: 51950 Init Hosp L3
[2024-06-29 22:37] LABS: Bedside Glucose 56 mg/dL (74-106)
[2024-06-29] MEDS: Dextrose 10%-Water 250 ML 999 ML IV (23:09)
[2024-06-29 23:19] LABS: Bedside Glucose 51 mg/dL (74-106)
[2024-06-29 23:52] LABS: Bedside Glucose 102 mg/dL (74-106)
[2024-06-30] VITALS (15 sets, daily range): BP systolic 97–152; BP diastolic 56–88; PULSE 75–112; RESP 16–28; TEMP 36.1–36.7; O2SAT 94–100
[2024-06-30 01:12] LABS: Troponin-I HS 131 pg/mL (3.0-78.0)
[2024-06-30 02:58] LABS: Hematocrit 23.6 % (40-54); Hemoglobin 7.5 g/dL (13.0-16.5); Mean Corp Hgb Conc 31.8 g/dL (32-36); Mean Corpuscular Hgb 29.9 pg (27.0-32.0); Mean Platelet Vol. 10.1 fl (6.2-12.0); POSITIVE MORPHOLOGY YES; Platelet Count 113 K/mm3 (150-450); RBC Distribution Width CV 20.1 % (11.6-14.6); RBC Distribution Width SD 69.2 fl (35.1-43.9); Red Blood Count 2.51 M/mm3 (4.6-6.2); White Blood Count 4.5 K/mm3 (4.4-11.0)
[2024-06-30 03:12] LABS: Scan Indicated on CBC? Y/N YES- FLAGS NOTED
[2024-06-30 03:16] LABS: ALB/GLOB Ratio 0.7 RATIO (0.9-2.4); AST(SGOT) 45 U/L (15-37); Alanine Aminotransfer ALT/SGPT 33 U/L (16-61); Albumin, Serum 2.6 g/dL (3.2-5.0); Alkaline Phosphatase 390 U/L (45-117); Anion Gap 7 (5-15); BUN 43 mg/dL (7-18); BUN/Creat Ratio 22.8 RATIO (10-20); Calcium,Total 8.6 mg/dL (8.5-10.1); Chloride 112 mmol/L (98-107); Creatinine, Serum 1.89 mg/dL (0.70-1.30); EST Glomerular Filtration Rate 36 mL/min (>60); Est Glom Filt Rate - Afr Amer 44 mL/min (>60); Estimated Creatinine Clearance 30.04 ml/min; Globulin 3.9 g/dL (2.2-4.2); Glucose 106 mg/dL (74-106); Potassium 4.5 mmol/L (3.5-5.1); Protein, Total 6.5 g/dL (6.4-8.2); Sodium Level 139 mmol/L (136-145)
[2024-06-30 03:34] LABS: Bedside Glucose 94 mg/dL (74-106)
[2024-06-30 04:20] LABS: Differential Comment SCANNED
[2024-06-30 06:08] LABS: Mucous, Urine 0 SEEN /hpf (<or=2+); Red Blood Cells-Urine 0 SEEN /hpf (0-5); Squamous Epithelial Cells - UA 0 SEEN /hpf (0-5)
[2024-06-30 06:13] LABS: Color, Urine Yellow (Yellow); Glucose, Dipstick Normal (Normal); Ketone-Dipstick Negative (Negative); Leukocyte Esterase-Dipstick 500 /ul (Negative); Nitrite-Dipstick Negative (Negative); Occult Blood-Urine 10 /ul (Negative); Protein-Dipstick 30 mg/dl (Negative); Specific Gravity, Urine 1.015 (1.002-1.030); Urine Bilirubin Dipstick Negative (Negative); Urine Clarity Clear (Clear); Urine Urobilinogen Normal (Normal)
[2024-06-30 06:41] LABS: Bacteria 2+ /hpf (None Seen); Transitional Epithelial - Ur 0-5 SEEN /hpf (0-5); White Blood Cells 0-5 SEEN /hpf (0-5)
[2024-06-30 07:16] LABS: Bedside Glucose 111 mg/dL (74-106)
--- NOTE | 2024-06-30 08:07 | PN.HOSP_ITS ---
Reason for Visit Reason for Visit: Diagnoses Acute posthemorrhagic anemia (06/29/24) Gastrointestinal hemorrhage, unspecified (06/29/24) Disorder of kidney and ureter, unspecified (06/29/24) Subjective Subjective Abdominal distention but not painful. Objective Data Objective Data Vital Signs: Vital Signs Temp Pulse Resp BP Pulse Ox O2 Del Method 36.6 C 85 18 119/56 L 100 Room Air 06/30/24 03:00 06/30/24 03:00 06/30/24 03:00 06/30/24 03:00 06/30/24 03:00 06/30/24 03:00 Oxygen Delivery Method Room Air Weight: 81.2 kg Body Mass Index (BMI) 25.7 Intake & Output: Intake and Output for Last 24 Hours 06/28/24 06/29/24 06/30/24 23:59 23:59 23:59 Intake Total 820 / 820 650 / 650 Balance 820 / 820 650 / 650 Lab / Micro Data 06/30/24 02:50 06/30/24 02:50 Labs: Laboratory Results - last 24 hr 06/29/24 15:30: WBC 5.2, RBC 2.82 L, Hgb 8.5 L, Hct 26.5 L, MCV 94.0, MCH 30.1, MCHC 32.1, RDW Std Deviation 69.2 H, RDW Coeff of Artemio 20.1 H, Plt Count 169, MPV 11.0, Immature Gran % (Auto) 0.200, Neut % (Auto) 66.9, Lymph % (Auto) 20.2, M cait % (Auto) 10.5 H, Eos % (Auto) 1.4, Baso % (Auto) 0.8, Absolute Neuts (auto) 3.5, Absolute Lymphs (auto) 1.04, Nucleated RBC % 0, Differential Comment SCANNED, Hypochromasia 1+, Anisocytosis 1+, Sodium 137, Potassium 4.7, Chloride 111 H, Carbon Dioxide 18.0 L, Anion Gap 8, BUN 41 H, Creatinine 1.94 H, Estim Creat Clear Calc 29.27, Est GFR (MDRD) Af Amer 43 L, Est GFR (MDRD) Non-Af 35 L, BUN/Creatinine Ratio 21.1 H, Glucose 127 H, Hemoglobin A1c 6.6 H, Calcium 8.5, Total Bilirubin 0.50, AST 47 H, ALT 37, Alkaline Phosphatase 438 H, Troponin I High Sens 115 H, Total Protein 6.8, Albumin 2.3 L, Globulin 4.5 H, A lbumin/Globulin Ratio 0.5 L, Blood Type B NEGATIVE, Antibody Screen NEGATIVE 06/29/24 17:45: Iron 64 L, TIBC 200 L, Iron Saturation 32.0, Ferritin 165, T roponin I High Sens 119 H 06/29/24 18:30: PT 16.3 H, INR 1.3 06/29/24 21:24: POC Glucose 63 L 06/29/24 22:17: POC Glucose 56 L 06/29/24 23:01: POC Glucose 51 L 06/29/24 23:27: POC Glucose 102 06/29/24 23:35: Ammonia 22.0, Troponin I High Sens 131 H* 06/30/24 02:50: WBC 4.5, RBC 2.51 L, Hgb 7.5 L, Hct 23.6 L, MCV 94.0, MCH 29.9, MCHC 31.8 L, RDW Std Deviation 69.2 H, RDW Coeff of Artemio 20.1 H, Plt Count 113 L, MPV 10.1, Differential Comment SCANNED, Sodium 139, Potassium 4.5, Chloride 112 H, Carbon Dioxide 20.0 L, Anion Gap 7, BUN 43 H, Creatinine 1.89 H, Estim Creat Clear Calc 30.04, Est GFR (MDRD) Af Amer 44 L, Est GFR (MDRD) Non-Af 36 L, B UN/Creatinine Ratio 22.8 H, Glucose 106, Calcium 8.6, Total Bilirubin 0.60, AST 45 H, ALT 33, Alkaline Phosphatase 390 H, Total Protein 6.5, Albumin 2.6 L, Globulin 3.9, Albumin/Globulin Ratio 0.7 L 06/30/24 03:02: POC Glucose 94 06/30/24 05:00: Urine Color Yellow, Urine Clarity Clear, Urine pH 6.0, Ur Specific [place] 1.015, Urine Protein 30 H, Urine Glucose (UA) Normal, Urine Ketones Negative, Urine Occult Blood 10 H, Urine Nitrite Negative, Urine Bilirubin Negative, Urine Urobilinogen Normal, Ur Leukocyte Esterase 500 H, Urine RBC 0 SEEN, Urine WBC 0-5 SEEN, Ur Squamous Epith Cells 0 SEEN, Ur Transition Epith Cell 0-5 SEEN, Other Crystals COMMENT, Urine Bacteria 2+, Urine Mucus 0 SEEN 06/30/24 06:58: POC Glucose 111 H Micro: Microbiology 06/29/24 16:00 Stool Stool Occult Blood (TONA) - Final Occult Blood Positive Radiography Diagnostic Testing: Radiology Impression Abdomen Ultrasound 06/29/24 18:16 IMPRESSION: Hepatic cirrhosis with ascites. Diffuse fatty infiltration of the liver, no focal lesion identified. Electronically Signed: Jarad Corrales MD at 22:02 EST , Rhythm Strip Rhythm Strip: Sinus Rhythm Rate: 75 Ectopy: None Physical Exam Const alert and no apparent distress HEENT head/scalp atraumatic and moist oral mucous membranes Resp normal respiratory effort, no retractions, no use of accessory muscles and clear to auscultation bilaterally Cardio regular rate, regular rhythm, S1 normal heart sound and S2 normal heart sound GI normal to inspection, nondistended, normoactive bowel sounds, soft to palpation and non-tender GI Narrative: distended, but not taught. Neuro Sensorium / Orientation: awake and alert Assessment & Plan Assessment/Plan (1) Acute upper GI bleed: (2) ABLA (acute blood loss anemia): (3) Renal insufficiency: PLAN: Plan upper GI bleed * h/o PUD and varcies complicated by DAPT * PPI IV BID * GI consult Acute blood loss anemia * 2/2 GI bleed * Hg down to 7.5 * given CAD, will transfuse to a hg 8 or greater CAD: * STEMI in February 2024. RIA x2 to mid and distal LAD at [facility]. (reviewed through [facility]) * continue ASA, clopidogrel, losartan and carvedilol * follow up with Dr. [place] as outpt. Cirrhosis * alpha-1 antitrypsin deficiency. No family history that he is aware of. * complicates care. * noted ascites * when condition permits, start diuretics. Ascites * paracentesis cancelled by radiology because he is on clopidogrel. Unfortuantely he cannot be taken off until February 2025. * Cancel paracentesis. Start Spironolactone and furosemide. Debility * PT OT Chronic conditions: * Type 2 diabetes mellitus? Blood glucose 127 on admit. A1c 6.6%. Hold home metformin and glyburide. Will treat with sliding scale insulin with meals while inpatient. DVT prophylaxis: SCDs CODE STATUS: Full code, verified. Verified with patient and on admission. Expected disposition: TBD DW patient's and brother. Charges/Coding Visit Charges Inpatient E&M: 47459 Subs Hosp L2
[2024-06-30] MEDS: Pantoprazole Sodium 40 MG in 0.9% Normal Saline (100mL MB+) 100 ML 330 MG IV ×2 (08:50→21:58)
--- NOTE | 2024-06-30 11:49 | CASEMGMT ---
ANA MIRZA Assessment: Face to Face with pt for initial transition planning/care coordination assessment. ANA MIRZA introduced self and role at [facility], pt voices understanding and consents to assessment. Pt is A&O x4 and answers all questions appropriately at this time. Pt sitting in chair, Pt and brother in room, pt agreeable to discussing DC plan with family present. Care providers, pharmacy, and demographics verified/updated. Strata: 1 Admitting Dx: Upper GI Bleed with Mild ABLA PCP: Jael Specialists: Friend, Gastrology; Nuzhat, [employer] Preferred Pharmacy: [facility] [place] Insurance: [employer] A B, [employer] Prescription Benefit: No LNOK: Living Arrangements: Pt lives with at home in a 2 story with 2 steps to enter in. ADLs: I with ADLs and IADLs. Transportation: Pt drives self some, usually drives. Denies concerns with transportation. DME: Walker, but does not use it. HHC/SNF: Previously used a HHC agency, does not recall agency. Pt I at baseline, but an assist X2 while at hospital. Pt agreeable to SNF if recommended, follow therapy. Pt states no further concerns/needs. CM to follow. Advised pt to ask CM if any further question/concerns/needs arise, voices understanding. Pt Goal: TBD Plan: TBD, follow therapy for recommendations. Mj PEREZ CM
[2024-06-30 12:14] LABS: Bedside Glucose 109 mg/dL (74-106)
[2024-06-30] MEDS: 0.9% Saline Lock 10 ML Syringe IV (14:34)
--- NOTE | 2024-06-30 15:07 | CHAPLAIN ---
Type of Pastoral Visit _x__ Initial Visit ___ Follow-up Visit ___ On-call Visit ___ General Patient Visit ___ Spiritual Assessment ___ Family Conference ___ Bereavement ___ Rapid Response ___ Code Blue ___ Other (describe below) Pastoral Care Referral From _x__ Patient _x__ Family ___ Nurse ___ Physician ___ Outside Solar Sales Consultant ___ Park Interpretive Specialist ___ Other (describe below) Sacrament/Intervention _x__ Active listening ___ Anointing ___ Caodaism ___ Bereavement ___ Communion ___ Tala exploration ___ ___ Life review _x__ Prayer ___ Reconciliation ___ Sacrament of Sick _x__ Supportive presence ___ Wedding ___ Other (describe below) Pastoral Comments patient is waiting for a scope to be done yet this afternoon; spouse and brother are in the room for support; pt reports being ready for the test and the answers that he needs; pt spouse speaks up about his recent health issues and the hope of better days ahead; presence and prayer accepted
--- NOTE | 2024-06-30 15:22 | CASEMGMT ---
Discharge Planning A list of?SNF providers including quality and resource use data and consistent with the patient's preferred geographic region, medical needs, and insurance network was created in [facility] Guide.? This list was provided to the SW. Dasia Martinez Discharge Planning Asst.
--- NOTE | 2024-06-30 15:26 | CASEMGMT ---
SW was informed patient's would like a list of SNF's. SW went to patient's room and provided patient's with the list of facilities. SW explained she would just need to pick her top 3-4 preferences and SW will take care of contacting the facilities. Daniela Coleman MEDICAL STAFFING COORDINATOR HIRAL
--- NOTE | 2024-06-30 15:36 | PRE.ANES_ITS ---
ASA Classification* ASA Classification ASA Classification: 3 Assessment & Plan Anesthesia* Anesthesia Assessment Anesthesia Assessment: Discussed sedation and/or anesthesia options, risks, benefits, and alternatives with patient/parents/legal guardian/POA. Questions invited. The patient/parents/legal guardian/POA seems to understand and agrees to proceed with anesthesia plan. Reviewed the physical assessment, medical history, allergy history and patient home medications list prior to surgery/procedure/anesthetic and documented any changes. Performed airway and anesthesia risk assessments. Anesthesia Type Anesthesia Type: MAC History Source History Obtained from:: Patient and Chart Anesthesia Focused Assessment* Temperature: 98.1 F Pulse Rate: 75 Blood Pressure: 114/73 Respiratory Rate: 18 Pulse Ox: 97 Oxygen Delivery Method: Room Air Airway Assessment Mouth opens: >3 cm Mallampati Score: II Teeth Condition: Caps/Crowns (Patient may have a couple caps. All tight.) Neck Range of motion (ROM): Full ROM Focused Labs Anesthesia Preop lab: CBC WBC 4.5 K/mm3 (4.4-11.0) 06/30/24 02:50 RBC 2.51 M/mm3 (4.6-6.2) L 06/30/24 02:50 Hgb 7.5 g/dL (13.0-16.5) L 06/30/24 02:50 Hct 23.6 % (40-54) L 06/30/24 02:50 Plt Count 113 K/mm3 (150-450) L 06/30/24 02:50 CHEMISTRY Potassium 4.5 mmol/L (3.5-5.1) 06/30/24 02:50 Sodium 139 mmol/L (136-145) 06/30/24 02:50 BUN 43 mg/dL (7-18) H 06/30/24 02:50 Creatinine 1.89 mg/dL (0.70-1.30) H 06/30/24 02:50 Glucose 106 mg/dL (74-106) 06/30/24 02:50 POC Glucose 109 mg/dL (74-106) H 06/30/24 11:30 COAG PT 16.3 SECONDS (11.7-14.9) H 06/29/24 18:30 Pre-Assessment Diagnosis/Proposed Procedure Planned Operative Procedure(s): Esophagogastroduodenoscopy. 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 When Was Last Pacemaker Check QUESTION #4 FULL TEXT: You/Your Family Experience fever (hyperthermia) with Anesthesia Last Oral Intake Last Oral intake: Last Oral Intake NPO since Meds taken in AM with sips of water? Meds patient instructed to take am of surgery Any additional information?: Yes NPO since: 00:00 PONV PONV - spring machine operator: PONV - spring machine operator Female HX of Motion Sickness HX of N/V After Surgery Non-Smoker Duration of Surgery greater than 60 minutes Number of Risk Factors PONV Score Height & Weight Height & Weight: Anesthesia: Height & Weight Height 5 ft 10 in 06/30/24 13:11 Weight: 81.2 kg 06/30/24 13:11 Body Mass Index (BMI) 25.7 06/29/24 19:37 Respiratory Assessment Respiratory Assessment - spring machine operator: Respiratory Tract Infection Hx - spring machine operator Hx Respiratory Tract Infection Any additional information?: Yes Hx Respiratory Tract Infection: No STOP Sleep Apnea STOP Sleep Apnea - spring machine operator: STOP Sleep Apnea - spring machine operator Hx Hypertension Yes: pt unable to answer 06/30/24 14:28 Hx Sleep Apnea No: pt unable to answer 06/29/24 19:37 CPAP BIPAP Do you snore loudly (louder No 06/29/24 19:37 than talking or can be heard Do you often feel tired/ No 06/29/24 19:37 fatigued/ sleepy during daytime? Has anyone observed you stop No 06/29/24 19:37 breathing during sleep? STOP Results Negative 06/29/24 19:37 QUESTION #5 FULL TEXT : Do you snore loudly (louder than talking or can be heard through closed doors)? Tobacco Use History Tobacco Use History - spring machine operator: Tobacco Use History - spring machine operator Tobacco Use Smoking Status Former smoker 06/29/24 19:37 Hx Tobacco Use No 06/29/24 19:37 Years Smoking Packs Smoked per Day Smoking Cessation Date was No - quit smoking greater 06/29/24 19:37 within the last 15 years than 15 years ago Hx Smoking Cessation Date Hx Smoking Cessation Counseling Hematologic Medial History Hematologic Hx - spring machine operator: Hematologic Medical Hx - label folder Hx of Blood Transfusion Yes 06/29/24 19:37 Hx of Transfusion in last 3 Months Date of Last Transfusion (if within last 3 months) Ever experience any problems with transfusion(s)? Specify any problems Hx of Preganancy in last 3 Months Nurse Filling Out Transfusion LFORREST 06/29/24 19:37 & Questions: Date: 06/29/24 06/29/24 19:37 Time: 19:40 06/29/24 19:37 Patient unable to answer at Yes 06/29/24 19:37 this time (ie. confused, unrespo /Reproduction History /Reproductive History - spring machine operator: /Reproductive Hx- spring machine operator Hx Now Gestational Age (in weeks): EDC: Hx Hx Para Hx Section SAB Active Medications Active Medications: Current Medications Generic Name Dose Route Start Last Admin Trade Name Freq PRN Reason Stop Dose Admin Aspirin 81 mg 06/30/24 08:00 06/30/24 08:58 Aspirin 81 Mg Tab.Chew PO Not Given DAILY VINCE Atorvastatin Calcium 40 mg 06/29/24 22:00 06/29/24 21:21 Atorvastatin Calcium 40 Mg Tablet PO 40 mg QHS VINCE Administration Clopidogrel Bisulfate 75 mg 06/30/24 10:00 06/30/24 08:58 Clopidogrel Bisulfate 75 Mg Tablet PO Not Given DAILY VINCE Furosemide 20 mg 06/30/24 14:55 Furosemide 20 Mg Tablet PO DAILY VINCE Protocol Glucagon 1 mg 06/29/24 18:41 Glucagon 1 Mg/Ml Syringe IM X1 PRN Hypoglycemia Protocol Dextrose 250 mls @ 0 mls/hr 06/29/24 18:41 06/30/24 00:26 Dextrose 10%-Water IV Infused .Q0M PRN Infusion HYPOGLYCEMIA Protocol As Directed Pantoprazole Sodium 40 mg/ 110 mls @ 330 mls/hr 06/29/24 22:00 06/30/24 09:16 Sodium Chloride IV Infused Q12 VINCE Infusion Sodium Chloride 100 mls @ 15 mls/hr 06/29/24 18:43 IV .Q6H40M PRN Saline Flush Insulin Human Lispro 0 unit 06/29/24 22:00 06/30/24 11:33 Insulin Lispro 100 Unit/Ml Insuln.Pen SC Not Given ACHS [facility] Protocol Melatonin 3 mg 06/29/24 18:41 Melatonin 3 Mg Tablet PO QHS PRN PRN INSOMNIA Ondansetron HCl 4 mg 06/29/24 18:41 Ondansetron 4 Mg/2 Ml Vial IV Q8H PRN PRN NAUSEA/VOMITING Sodium Chloride 10 - 40 ml 06/29/24 18:43 06/30/24 14:34 0.9% Saline Lock 10 Ml Syringe IV 10 ml UD PRN Administration SALINE FLUSH Spironolactone 50 mg 06/30/24 14:55 Spironolactone 50 Mg Tablet PO DAILY [facility] Protocol PFSH Medical History Iron deficiency anemia High cholesterol Diabetes mellitus, type II HTN (hypertension) Ulcer Home Medications ?Medication ?Instructions ?Recorded ?Last Taken ?Type aspirin 81 mg capsule 81 mg PO DAILY 06/29/24 Unknown History carvedilol 3.125 mg tablet 3.125 mg PO BID 06/29/24 Unknown History ciclopirox 8 % topical solution topical QWEEK 06/29/24 Unknown History clopidogrel 75 mg tablet 75 mg PO DAILY 06/29/24 Unknown History glyburide 5 mg tablet 5 mg PO BID 06/29/24 Unknown History losartan 25 mg tablet 12.5 mg PO DAILY 06/29/24 Unknown History metformin 1,000 mg tablet 1,000 mg PO BID 06/29/24 Unknown History pantoprazole 40 mg tablet,delayed 40 mg PO BID 06/29/24 Unknown History release rosuvastatin 20 mg tablet 20 mg PO DAILY 06/29/24 Unknown History Allergy/AdvReac Type Severity Reaction Status Date / Time oxycodone AdvReac CONFUSION Verified 06/29/24 14:09 tramadol AdvReac CONFUSION Verified 06/29/24 14:09 Surgical History Status post reverse arthroplasty of right shoulder S/P appendectomy Social History Smoking Status: Former smoker Review of Systems (Anesthesia) ROS Narrative System reviewed and no additional complaints, except as documented.
--- NOTE | 2024-06-30 18:27 | OP.EGD_ITS ---
Patient Name: Kishan Dominguez Procedure Date: 06/30/2024 5:29 PM Date of : 1940 Age: 84 Procedure: Upper GI endoscopy Indications: Active gastrointestinal bleeding Providers: Ignacio Mcgee DO Referring MD: Santino Cao Medicines: Monitored Anesthesia Care Patient Profile: This is an 84 year old male. Refer to note in patient chart for documentation of history and physical. Patient has symptoms. Complications: No immediate complications. Procedure: Pre-Anesthesia Assessment: - Prior to the procedure, a History and Physical was performed, and patient medications and allergies were reviewed. The patient is competent. The risks and benefits of the procedure and the sedation options and risks were discussed with the patient. All questions were answered and informed consent was obtained. Patient identification and proposed procedure were verified by the physician in the pre-procedure area. Mental Status Examination: alert and oriented. Airway Examination: normal oropharyngeal airway and neck mobility. Respiratory Examination: clear to auscultation. CV Examination: normal. Prophylactic Antibiotics: The patient does not require prophylactic antibiotics. Prior Anticoagulants: The patient has taken no anticoagulant or antiplatelet agents except for NSAID medication. ASA Grade Assessment: II - A patient with mild systemic disease. After reviewing the risks and benefits, the patient was deemed in satisfactory condition to undergo the procedure. The anesthesia plan was to use monitored anesthesia care (MAC). Immediately prior to administration of medications, the patient was re-assessed for adequacy to receive sedatives. The heart rate, respiratory rate, oxygen saturations, blood pressure, adequacy of pulmonary ventilation, and response to care were monitored throughout the procedure. The physical status of the patient was re-assessed after the procedure. After obtaining informed consent, the endoscope was passed under direct vision. Throughout the procedure, the patient's blood pressure, pulse, and oxygen saturations were monitored continuously. The Endoscope was introduced through the mouth, and advanced to the second part of duodenum. The upper GI endoscopy was accomplished without difficulty. The patient tolerated the procedure well. Scope In: 6:00:44 PM Scope Out: 6:23:03 PM Total Procedure Duration Time 0 hours 22 minutes 19 seconds Findings: Grade III varices were found in the mid esophagus and in the distal esophagus. They were 24 mm in largest diameter. Moderate portal hypertensive gastropathy was found in the entire examined stomach. A few 9 mm angiodysplastic lesions with bleeding were found in the third portion of the duodenum. To stop active bleeding, hemostatic spray was deployed. Several sprays were applied. There was no bleeding at the end of the procedure. Impression: - Grade III esophageal varices. - Portal hypertensive gastropathy. 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 Hemostatic spray applied. - No specimens collected. Recommendation: - [facility]. - NPO. - Continue present medications. Procedure Code(s): --- Professional --- 31293, Esophagogastroduodenoscopy, flexible, transoral; with control of bleeding, any method CPT copyright 2021 [employer]. All rights reserved. The codes documented in this report are preliminary and upon preservative filler machine operator review may be revised to meet current compliance requirements. Ignacio Mcgee DO 06/30/2024 6:26:48 PM This report has been signed electronically. Number of Addenda: 0 Note Initiated On: 06/30/2024 5:29 PM
--- NOTE | 2024-06-30 18:27 | OP.CCLET_ITS ---
06/30/2024 Peng Elder Md Re : Upper GI endoscopy procedure for Kishan Alvarezleora Elder This procedure was performed on June. My impressions and recommendations are as follows: Impressions : - Grade III esophageal varices. - Portal hypertensive gastropathy. 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 Hemostatic spray applied. - No specimens collected. Recommendations : - [facility]. - NPO. - Continue present medications. My findings are described in the full procedure note, which is enclosed. If I can be of further assistance, please feel free to contact me at . Sincerely, Ignacio Mcgee, 06/30/2024 6:26:48 PM This report has been signed electronically.
--- NOTE | 2024-06-30 18:36 | PCM.POST.ANE ---
Anesthesia: Postop Eval I Current Vital Signs Temperature: 97 F Pulse Rate: 105 Blood Pressure: 141/88 Respiratory Rate: 18 Pulse Ox: 97 Assessment Airway patent: Yes Spontaneous unlabored respirations: Yes nausea: No Vomiting: No Anesthesia Complication: No Fluid Hydration Crystalloid volume administer (ml): 100 Total IV fluid infused: 100 Progress Note Anesthesia document: Postop Eval 1 completed: Yes
--- NOTE | 2024-06-30 18:37 | PCM.POSTANE2 ---
Anesthesia Postop Eval I Sum Postop Eval Completion status Anesthesia document: Postop Eval 1 completed: Yes Anesthesia Postop Eval I Summary Anesthesia Postop Eval I Summary: Anesthesia Postop Eval I: Assessment Summary Airway patent Yes 06/30/24 18:37 Spontaneous unlabored Yes 06/30/24 18:37 respirations Mental status nausea No 06/30/24 18:37 Vomiting No 06/30/24 18:37 Anesthesia Postop Eval I: Fluid Summary Crystalloid volume administer 100 06/30/24 18:37 (ml) Colloids volume administered ( ml) Blood Product volume administered (ml) Total IV fluid infused 100 06/30/24 18:37 Anesthesia Postop Eval I: Summary Notes Anesthesia Complication No 06/30/24 18:37 Anesthesia Complication Comment: Post-operative progress note Anesthesia: Postop Eval II Evaluation Mental status: Confused (same as pre op) Pain Level: 0 nausea: No Vomiting: No Progress Note Post-operative progress note: patient coughing from egd Complications Anesthesia Complication: No
[2024-06-30 19:51] LABS: Bedside Glucose 120 mg/dL (74-106)
[2024-07-01] VITALS (8 sets, daily range): BP systolic 108–124; BP diastolic 60–77; PULSE 89–103; RESP 14–16; TEMP 36.3–36.6; O2SAT 92–98
[2024-07-01 02:53] LABS: Bedside Glucose 161 mg/dL (74-106)
[2024-07-01 05:47] LABS: Absolute Lymphocyte Count 0.96 X10^3/uL (0.83-4.51); Absolute Neutrophil Count 7.5 X10^3/uL (2.0-7.7); Basophil# 0.04 X10^3/uL; Basophil% 0.4 % (0-1); Eosinophil# 0.03 X10^3/uL; Eosinophils% 0.3 % (0-5); Hematocrit 24.9 % (40-54); Hemoglobin 8.2 g/dL (13.0-16.5); Lymphocyte # 0.96 X10^3/ul (0.83-4.51); Lymphocyte % 10.4 % (19-41); Mean Corp Hgb Conc 32.9 g/dL (32-36); Mean Corpuscular Hgb 30.1 pg (27.0-32.0); Mean Corpuscular Volume 91.5 fL (80-94); Mean Platelet Vol. 10.8 fl (6.2-12.0); Monocyte# 0.65 X10^3/uL; Monocyte% 7.1 % (0-10); NRBC Flagged by Analyzer 0 % (0-5); Neutrophil # 7.48 X10^3/uL (2.7-7.7); Neutrophil % 81.3 % (47-70); POSITIVE MORPHOLOGY YES; Platelet Count 122 K/mm3 (150-450); RBC Distribution Width CV 21.5 % (11.6-14.6); RBC Distribution Width SD 70.9 fl (35.1-43.9); Red Blood Count 2.72 M/mm3 (4.6-6.2); White Blood Count 9.2 K/mm3 (4.4-11.0)
[2024-07-01 06:05] LABS: Anion Gap 9 (5-15); BUN 49 mg/dL (7-18); Calcium,Total 8.7 mg/dL (8.5-10.1); Chloride 112 mmol/L (98-107); Creatinine, Serum 1.58 mg/dL (0.70-1.30); EST Glomerular Filtration Rate 45 mL/min (>60); Est Glom Filt Rate - Afr Amer 54 mL/min (>60); Estimated Creatinine Clearance 35.94 ml/min; Glucose 179 mg/dL (74-106); Potassium 4.7 mmol/L (3.5-5.1); Sodium Level 140 mmol/L (136-145)
[2024-07-01 06:36] LABS: Differential Indicated SCAN CRITERIA MET
--- NOTE | 2024-07-01 07:50 | PN.HOSP_ITS ---
Reason for Visit Reason for Visit: Diagnoses Acute posthemorrhagic anemia (06/29/24) Gastrointestinal hemorrhage, unspecified (06/29/24) Disorder of kidney and ureter, unspecified (06/29/24) Subjective Subjective Denies abdominal pain. Objective Data Objective Data Vital Signs: Vital Signs Temp Pulse Resp BP Pulse Ox O2 Del Method O2 Flow Rate 36.5 C L 99 16 108/72 92 Room Air 2 07/01/24 07:28 07/01/24 07:28 07/01/24 07:28 07/01/24 07:28 07/01/24 07:28 07/01/24 07:28 06/30/24 21:55 Oxygen Flow Rate (L/min) 2 Oxygen Delivery Method Room Air Weight: 81.2 kg Body Mass Index (BMI) 25.7 Intake & Output: Intake and Output for Last 24 Hours 06/29/24 06/30/24 07/01/24 23:59 23:59 23:59 Intake Total 820 / 820 1270 / 1270 0 / 0 Balance 820 / 820 1270 / 1270 0 / 0 Lab / Micro Data 07/01/24 05:17 07/01/24 05:17 Labs: Laboratory Results - last 24 hr 06/29/24 15:30: Crossmatch See Detail 06/30/24 11:30: POC Glucose 109 H 06/30/24 19:32: POC Glucose 120 H 07/01/24 02:35: POC Glucose 161 H 07/01/24 05:17: WBC 9.2, RBC 2.72 L, Hgb 8.2 L, Hct 24.9 L, MCV 91.5, MCH 30.1, MCHC 32.9, RDW Std Deviation 70.9 H, RDW Coeff of Artemio 21.5 H, Plt Count 122 L, MPV 10.8, Immature Gran % (Auto) 0.500, Neut % (Auto) 81.3 H, Lymph % (Auto) 10.4 L, [place] % (Auto) 7.1, Eos % (Auto) 0.3, Baso % (Auto) 0.4, Absolute Neuts (auto) 7.5, Absolute Lymphs (auto) 0.96, Nucleated RBC % 0, Sodium 140, Potassium 4.7, Chloride 112 H, Carbon Dioxide 19.0 L, Anion Gap 9, BUN 49 H, C reatinine 1.58 H, Estim Creat Clear Calc 35.94, Est GFR (MDRD) Af Amer 54 L, Est GFR (MDRD) Non-Af 45 L, BUN/Creatinine Ratio 31.0 H, Glucose 179 H, Calcium 8.7 Micro: Microbiology 06/29/24 16:00 Stool Stool Occult Blood (TONA) - Final Occult Blood Positive Rhythm Strip Rhythm Strip: Sinus Rhythm Rate: 75 Ectopy: None Physical Exam Const alert Constitutional Narrative: confused. afebrile. non-toxic. HEENT head/scalp atraumatic Resp normal respiratory effort, no retractions, no use of accessory muscles and clear to auscultation bilaterally Cardio regular rate, regular rhythm, S1 normal heart sound and S2 normal heart sound GI normal to inspection, nondistended, normoactive bowel sounds, soft to palpation and non-distended Extremity normal to inspection and full ROM Neuro oriented x3, CN's II-XII intact bilaterally, moves all extremities and no focal motor deficits Assessment & Plan Assessment/Plan (1) Acute upper GI bleed: (2) ABLA (acute blood loss anemia): (3) Renal insufficiency: PLAN: Plan upper GI bleed * h/o PUD and varcies complicated by DAPT * PPI IV BID * GI took pt for EGD on 06/30 which showed grad III esophageal varices. 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 Hemostatic spray applied. * Currenlty NPO Acute blood loss anemia * 2/2 GI bleed * Hg down to 7.5 * given CAD, will transfuse to a hg 8 or greater CAD: * STEMI in February 2024. RIA x2 to mid and distal LAD at [facility]. (reviewed through [facility]) * continue ASA, clopidogrel, losartan and carvedilol * follow up with Dr. Montana as outpt. Cirrhosis * alpha-1 antitrypsin deficiency. No family history that he is aware of. * complicates care. * noted ascites Ascites * paracentesis cancelled by radiology because he is on clopidogrel. Unfortuantely he cannot be taken off until February 2025. * Cancel paracentesis. Start Spironolactone and furosemide. Debility * PT OT Chronic conditions: * Type 2 diabetes mellitus? Blood glucose 127 on admit. A1c 6.6%. Hold home metformin and glyburide. Will treat with sliding scale insulin with meals while inpatient. DVT prophylaxis: SCDs CODE STATUS: Full code, verified. Verified with patient and on admission. Expected disposition: TBD Charges/Coding Visit Charges Inpatient E&M: 14631 Subs Hosp L2
[2024-07-01 08:02] LABS: Anisocytosis 2+; Differential Comment SCANNED; Hypochromasia 1+; Macrocytosis 1+; Microcytosis 1+; Ovalocyte 2+; Platelet Estimate SLT DEC (ADEQ); Polychromasia 1+
[2024-07-01 08:03] LABS: Target Cells RARE; Tear Drop Cell 1+
[2024-07-01 08:11] LABS: Bedside Glucose 155 mg/dL (74-106)
[2024-07-01] MEDS: Pantoprazole Sodium 40 MG in 0.9% Normal Saline (100mL MB+) 100 ML 330 MG IV ×2 (10:13→22:00)
[2024-07-01] MEDS: 0.9% Saline Lock 10 ML Syringe IV (10:13)
[2024-07-01] MEDS: Clopidogrel Bisulfate 75 MG Tablet PO (10:14)
[2024-07-01] MEDS: Furosemide 20 MG Tablet PO (10:14)
[2024-07-01] MEDS: Insulin Lispro 100 UNIT/ML INSULN.PEN SC ×3 (10:14→21:57)
[2024-07-01] MEDS: Spironolactone 50 MG Tablet PO (10:16)
[2024-07-01] MEDS: Aspirin 81 MG TAB.CHEW PO (10:16)
--- NOTE | 2024-07-01 13:58 | CASEMGMT ---
SW went to patient's room. SW asked patient's if she reviewed the list. She said she did. SW asked about choices. She said she was told she should take a list and she did. Patient then spoke up and asked what was going on. Patient's said no decisions have been made. Patient then learned he is not being discharged until tomorrow. At this time family is not sure about a discharge plan. Daniela BLACKMAN
[2024-07-01 14:43] LABS: Bedside Glucose 157 mg/dL (74-106)
[2024-07-01 14:57] LABS: Protein, Urine (Random) 42.5 mg/dL (<11.9); Protein:Creat Ratio 678 mg/g CRE (0-200); Urine Sodium 76 mmol/L (Not Establ.)
[2024-07-01 21:11] LABS: Bedside Glucose 212 mg/dL (74-106)
[2024-07-01] MEDS: Atorvastatin Calcium 40 MG Tablet PO (21:51)
[2024-07-01] MEDS: MELATONIN 3 MG TABLET PO (21:54)
[2024-07-02] VITALS (8 sets, daily range): BP systolic 94–126; BP diastolic 53–79; PULSE 78–96; RESP 16–18; TEMP 36.1–36.4; O2SAT 94–99
--- NOTE | 2024-07-02 04:12 | PCM.HOSP.N ---
Hospitalist Note RAPID RESPONSE: Patient with onset sustained VT, no prior history charted. Had held his BB upon admission given presentation with GI bleed/ABLA. Spontaneously converted and was asymptomatic. Denies chest pain or dyspnea. BP stable. Will add back low dose BB. Will obtain AM labs now and also obtain mag, TSH.
--- NOTE | 2024-07-02 04:19 | EKG12_ITS ---
Test Reason : RHYTHM CHANGE Blood Pressure : */* mmHG Vent. Rate : 97 BPM Atrial Rate : 97 BPM P-R Int : 144 ms QRS Dur : 144 ms QT Int : 400 ms P-R-T Axes : 16 -77 60 degrees QTcB Int : 508 ms Sinus rhythm with marked sinus arrhythmia Right bundle branch block Left anterior fascicular block Bifascicular block Septal infarct , age undetermined Possible Lateral infarct , age undetermined Abnormal ECG When compared with ECG of 29-Jun-2024 16:37, MANUAL COMPARISON REQUIRED DATA IS UNCONFIRMED Confirmed by ALEYDA PEREA, HECTOR ([id number]), editor magazine ALYCIA MAN ([id number]) on 07/04/2024 12:48:09 PM Referred By: Santino Cao Confirmed By: HECTOR MAYNARD MD
[2024-07-02] MEDS: Carvedilol 3.125 MG TABLET PO (04:20)
[2024-07-02 04:45] LABS: Absolute Lymphocyte Count 1.24 X10^3/uL (0.83-4.51); Absolute Neutrophil Count 3.2 X10^3/uL (2.0-7.7); Basophil# 0.05 X10^3/uL; Basophil% 0.9 % (0-1); Eosinophil# 0.33 X10^3/uL; Eosinophils% 6.2 % (0-5); Hematocrit 23.7 % (40-54); Hemoglobin 7.7 g/dL (13.0-16.5); Lymphocyte # 1.24 X10^3/ul (0.83-4.51); Lymphocyte % 23.4 % (19-41); Mean Corp Hgb Conc 32.5 g/dL (32-36); Mean Corpuscular Hgb 29.8 pg (27.0-32.0); Mean Corpuscular Volume 91.9 fL (80-94); Mean Platelet Vol. 10.4 fl (6.2-12.0); Monocyte# 0.52 X10^3/uL; Monocyte% 9.8 % (0-10); NRBC Flagged by Analyzer 0 % (0-5); Neutrophil # 3.15 X10^3/uL (2.7-7.7); Neutrophil % 59.3 % (47-70); POSITIVE MORPHOLOGY YES; Platelet Count 142 K/mm3 (150-450); RBC Distribution Width CV 21.2 % (11.6-14.6); RBC Distribution Width SD 69.3 fl (35.1-43.9); Red Blood Count 2.58 M/mm3 (4.6-6.2); White Blood Count 5.3 K/mm3 (4.4-11.0)
[2024-07-02 05:35] LABS: Anion Gap 4 (5-15); BUN 49 mg/dL (7-18); BUN/Creat Ratio 30.8 RATIO (10-20); Calcium,Total 8.8 mg/dL (8.5-10.1); Chloride 114 mmol/L (98-107); Creatinine, Serum 1.59 mg/dL (0.70-1.30); EST Glomerular Filtration Rate 44 mL/min (>60); Est Glom Filt Rate - Afr Amer 54 mL/min (>60); Estimated Creatinine Clearance 35.71 ml/min; Glucose 190 mg/dL (74-106); Potassium 4.4 mmol/L (3.5-5.1); Sodium Level 141 mmol/L (136-145)
[2024-07-02 05:43] LABS: Magnesium 1.4 mg/dL (1.6-2.6)
[2024-07-02 05:46] LABS: Differential Comment SCANNED; Differential Indicated SCAN CRITERIA MET
[2024-07-02 05:47] LABS: Anisocytosis 1+; Platelet Estimate ADEQUATE (ADEQ)
[2024-07-02] MEDS: Insulin Lispro 100 UNIT/ML INSULN.PEN SC ×4 (06:48→21:38)
[2024-07-02 07:07] LABS: Bedside Glucose 179 mg/dL (74-106)
[2024-07-02] MEDS: Clopidogrel Bisulfate 75 MG Tablet PO (09:37)
[2024-07-02] MEDS: Aspirin 81 MG TAB.CHEW PO (09:37)
[2024-07-02] MEDS: Furosemide 20 MG Tablet PO (09:37)
[2024-07-02] MEDS: Spironolactone 50 MG Tablet PO (09:37)
[2024-07-02] MEDS: 0.9% Saline Lock 10 ML Syringe IV (09:46)
[2024-07-02] MEDS: Pantoprazole Sodium 40 MG in 0.9% Normal Saline (100mL MB+) 100 ML 330 MG IV ×2 (09:47→21:42)
--- NOTE | 2024-07-02 10:12 | PN.HOSP_ITS ---
Reason for Visit Reason for Visit: Diagnoses Acute posthemorrhagic anemia (06/29/24) Gastrointestinal hemorrhage, unspecified (06/29/24) Disorder of kidney and ureter, unspecified (06/29/24) Subjective Subjective No new events. Was asking the patient's spouse, the bedside about the specialist that he sees particular his lacing operator. She says that his lacing operator is local and that that is Dr. Salcido. I told her that that is not a lacing operator and he is an oncologist. She says she saw someone at [place] but did not even know what kind of hospital system that was and what that person's position even was. Explained to her that if she wants to continue with aggressive medical care that he would need to see a likely specialist at the main campus and that may be a bit overwhelming to her and her family. Objective Data Objective Data Vital Signs: Vital Signs Temp Pulse Resp BP Pulse Ox O2 Del Method O2 Flow Rate 36.4 C L 96 18 126/79 H 98 Room Air 2 07/02/24 09:14 07/02/24 09:14 07/02/24 09:14 07/02/24 09:14 07/02/24 09:14 07/02/24 09:14 06/30/24 21:55 Oxygen Flow Rate (L/min) 2 Oxygen Delivery Method Room Air Weight: 81.2 kg Body Mass Index (BMI) 25.7 Intake & Output: Intake and Output for Last 24 Hours 06/30/24 07/01/24 07/02/24 23:59 23:59 23:59 Intake Total 1270 / 1270 220 / 220 Output Total 1000 / 1000 100 / 100 Balance 1270 / 1270 -780 / -780 -100 / -100 Lab / Micro Data 07/02/24 04:25 07/02/24 04:25 Labs: Laboratory Results - last 24 hr 07/01/24 10:30: U Random Total Protein 42.5 H, Ur Random Sodium 76, Urine Creatinine 62.70, Protein/Creatinin Ratio 678 H 07/01/24 14:19: POC Glucose 157 H 07/01/24 20:50: POC Glucose 212 H 07/02/24 04:25: WBC 5.3, RBC 2.58 L, Hgb 7.7 L, Hct 23.7 L, MCV 91.9, MCH 29.8, MCHC 32.5, RDW Std Deviation 69.3 H, RDW Coeff of Artemio 21.2 H, Plt Count 142 L, MPV 10.4, Immature Gran % (Auto) 0.400, Neut % (Auto) 59.3, Lymph % (Auto) 23.4, [place] % (Auto) 9.8, Eos % (Auto) 6.2 H, Baso % (Auto) 0.9, Absolute Neuts (auto) 3.2, Absolute Lymphs (auto) 1.24, Nucleated RBC % 0, Differential Comment SCANNED, Platelet Estimate ADEQUATE, Anisocytosis 1+, Sodium 141, Potassium 4.4, Chloride 114 H, Carbon Dioxide 23.0, Anion Gap 4 L, BUN 49 H, Creatinine 1.59 H, Estim Creat Clear Calc 35.71, Est GFR (MDRD) Af Amer 54 L, Est GFR (MDRD) Non-Af 44 L, BUN/Creatinine Ratio 30.8 H, Glucose 190 H, Calcium 8.8, Magnesium 1.4 L, TSH 1.080 07/02/24 06:48: POC Glucose 179 H Micro: Microbiology 06/29/24 16:00 Stool Stool Occult Blood (TONA) - Final Occult Blood Positive Rhythm Strip Rhythm Strip: Sinus Rhythm Rate: 75 Ectopy: None Physical Exam Const alert and no apparent distress HEENT head/scalp atraumatic and moist oral mucous membranes Eyes PERRL Resp normal respiratory effort, no retractions, no use of accessory muscles and clear to auscultation bilaterally Cardio regular rate, regular rhythm, S1 normal heart sound and S2 normal heart sound GI GI Narrative: Distended but soft. Neuro oriented x3 and moves all extremities Assessment & Plan Assessment/Plan (1) Acute upper GI bleed: (2) ABLA (acute blood loss anemia): (3) Renal insufficiency: PLAN: Plan upper GI bleed * h/o PUD and varcies complicated by DAPT * PPI IV BID * GI took pt for EGD on 06/30 which showed grad III esophageal varices. 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 Hemostatic spray applied. Acute blood loss anemia * 2/2 GI bleed * transfused 1 unit PRBCs * monitor CAD: * STEMI in February 2024. RIA x2 to mid and distal LAD at [facility]. (reviewed through [facility]) * continue clopidogrel, losartan and carvedilol * follow up with Dr. Montana as outpt. * Discussed with Dr. Underwood who feels it is okay to discontinue the aspirin but continue with clopidogrel for now. Cirrhosis * alpha-1 antitrypsin deficiency. No family history that he is aware of. * complicates care. * noted ascites * Will add midodrine Ascites * paracentesis cancelled by radiology because he is on clopidogrel. Unfortuantely he cannot be taken off until February 2025. * Cancel paracentesis. Start Spironolactone and furosemide. Atrial tachycardia * converted spontaneously. then recurred again in the AM on 07/02 * back on carvedilol, dose increased * magnesium low. replaced * Discussed with Dr. Underwood who did not feel that it was actually a ventricular tachycardia but more of an atrial tachycardia. Debility * PT OT Chronic conditions: * Type 2 diabetes mellitus? Blood glucose 127 on admit. A1c 6.6%. Hold home metformin and glyburide. Will treat with sliding scale insulin with meals while inpatient. DVT prophylaxis: SCDs CODE STATUS: Full code Advance care planning: Spent additional 20 minutes were discussed with the patient's . She explained how overwhelmed she was about just going to his doctors appointments. I recommended changing his CODE STATUS to DNR Comfort Care arrest. Being that she is so overwhelmed with these doctors appointments, his medical complexity, the issue is if he were to have cardiac arrest and survive and be on a ventilator he may not be able to come off very easily if at all which would lead her to have even more significant decisions to make such as withdrawing of care if that were necessary. Patient is too confused to make that decision at this time. She was not able to make a decision when I asked her. Charges/Coding Visit Charges Inpatient E&M: 48915 Subs Hosp L2 Procedures Hospitalists Procedures: 11410 Advncd Care Plan 30 Min
[2024-07-02] MEDS: Magnesium Sulfate 2 GM in Dextrose 5%-Water (100mL Bag) 100 ML IV (10:37)
--- NOTE | 2024-07-02 10:55 | EKG12_ITS ---
Test Reason : Blood Pressure : */* mmHG Vent. Rate : 90 BPM Atrial Rate : 90 BPM P-R Int : 150 ms QRS Dur : 144 ms QT Int : 410 ms P-R-T Axes : -3 -62 35 degrees QTcB Int : 501 ms Sinus rhythm with Premature atrial complexes Right bundle branch block Left anterior fascicular block Bifascicular block Septal infarct , age undetermined Possible Lateral infarct , age undetermined Abnormal ECG When compared with ECG of 02-Jul-2024 03:55, MANUAL COMPARISON REQUIRED DATA IS UNCONFIRMED Confirmed by ALEYDA PEREA, HECTOR ([id number]), medical transcription editor ALYCIA MAN ([id number]) on 07/04/2024 12:48:00 PM Referred By: Santino Cao Confirmed By: HECTOR MAYNARD MD
[2024-07-02] MEDS: Carvedilol 6.25 MG Tablet PO (11:56)
--- NOTE | 2024-07-02 12:05 | CASEMGMT ---
Social Work SW met with pt's to discuss discharge plan. SW presented information from therapy session today. Pt's is understanding she cannot take pt home at this time and short term rehab will be needed. states that preferred provider is [facility]. SW requested additional options should TCU not be able to accept. Pt stating TCU is the only option. SW assured that referral would be made to TCU but no guarantee there will be a bed or pt will be accepted. SW requested pt continue to review list and have additional choices ready on Thursday. Referral made to TCU at this time. SW informed that SW would follow up on Thursday with decision about TCU or need for another SNF. expressing understanding. Plan: TCU, pending acceptance [facility] Trevino
[2024-07-02 12:26] LABS: Bedside Glucose 237 mg/dL (74-106)
--- NOTE | 2024-07-02 15:41 | PCM.CONS.C ---
Assessment & Plan Assessment/Plan (1) Atrial tachycardia: PLAN: Review of telemetry reveals tachycardia that is of supraventricular origin (not ventricular tachycardia), likely atrial tachycardia. Resume patient's home dose of carvedilol. (2) Coronary artery disease: QUALIFIERS: Coronary Disease-Associated Artery/Lesion type: [place] artery [place] vs. transplanted heart: [place] heart Associated angina: without angina Qualified Code(s): I25.10 - Atherosclerotic heart disease of [place] coronary artery without angina pectoris PLAN: It appears that patient had STEMI in February that was treated with stents to the LAD. Discussed antiplatelet therapy with the patient's family in detail. It is reasonable to stop patient's aspirin at this time. Continue Plavix if possible. Risks and benefits discussed with the patient's family in detail. PLAN: Plan We will sign off at this time. If we can be of any further assistance please let us know. HPI Consult Data Date of Consult: 07/02/24 HPI Narrative Reason for Consultation: Tachycardia HPI Narrative: EMERSON GALAN, is a 84 M who presents with GI bleed. He underwent EGD which revealed varices and angiodysplastic lesions that were bleeding. These were taken care of by Dr. Mcgee. Patient apparently has history of coronary artery disease status post ST elevation [place] in February of this year. He is a poor historian but his confirmed this history. On telemonitoring patient had runs of what appears to be atrial tachycardia. [facility] Medical History Iron deficiency anemia High cholesterol Diabetes mellitus, type II HTN (hypertension) Ulcer Home Medications ?Medication ?Instructions ?Recorded ?Last Taken ?Type aspirin 81 mg capsule 81 mg PO DAILY 06/29/24 Unknown History carvedilol 3.125 mg tablet 3.125 mg PO BID 06/29/24 Unknown History ciclopirox 8 % topical solution topical QWEEK 06/29/24 Unknown History clopidogrel 75 mg tablet 75 mg PO DAILY 06/29/24 Unknown History glyburide 5 mg tablet 5 mg PO BID 06/29/24 Unknown History losartan 25 mg tablet 12.5 mg PO DAILY 06/29/24 Unknown History metformin 1,000 mg tablet 1,000 mg PO BID 06/29/24 Unknown History pantoprazole 40 mg tablet,delayed 40 mg PO BID 06/29/24 Unknown History release rosuvastatin 20 mg tablet 20 mg PO DAILY 06/29/24 Unknown History Allergy/AdvReac Type Severity Reaction Status Date / Time oxycodone AdvReac CONFUSION Verified 06/29/24 14:09 tramadol AdvReac CONFUSION Verified 06/29/24 14:09 Surgical History Status post reverse arthroplasty of right shoulder S/P appendectomy Social History Smoking Status: Former smoker Physical Exam Const alert and no apparent distress Eyes no scleral icterus Resp normal respiratory effort Psych mental status grossly normal Risk Stratification Risk Stratification Applicable: No Charges/Coding Visit Charges Inpatient E&M: 51937 Init Hosp L2 Objective Data Vital Signs: Vital Signs Temp Pulse Resp BP Pulse Ox O2 Del Method O2 Flow Rate 97.5 F L 81 18 96/58 L 95 Room Air 2 07/02/24 15:02 07/02/24 15:02 07/02/24 15:02 07/02/24 15:02 07/02/24 15:02 07/02/24 15:02 06/30/24 21:55 Oxygen Flow Rate (L/min) 2 Oxygen Delivery Method Room Air Weight: 179 lb 0.246 oz Body Mass Index (BMI) 25.7 Intake & Output: Intake and Output for Last 24 Hours 06/30/24 07/01/24 07/02/24 23:59 23:59 23:59 Intake Total 1270 / 1270 220 / 220 574 / 574 Output Total 1000 / 1000 300 / 300 Balance 1270 / 1270 -780 / -780 274 / 274 Lab / Micro Data 07/02/24 04:25 07/02/24 04:25 Labs: Laboratory Results - last 24 hr 07/01/24 20:50: POC Glucose 212 H 07/02/24 04:25: WBC 5.3, RBC 2.58 L, Hgb 7.7 L, Hct 23.7 L, MCV 91.9, MCH 29.8, MCHC 32.5, RDW Std Deviation 69.3 H, RDW Coeff of Artemio 21.2 H, Plt Count 142 L, MPV 10.4, Immature Gran % (Auto) 0.400, Neut % (Auto) 59.3, Lymph % (Auto) 23.4, [place] % (Auto) 9.8, Eos % (Auto) 6.2 H, Baso % (Auto) 0.9, Absolute Neuts (auto) 3.2, Absolute Lymphs (auto) 1.24, Nucleated RBC % 0, Differential Comment SCANNED, Platelet Estimate ADEQUATE, Anisocytosis 1+, Sodium 141, Potassium 4.4, Chloride 114 H, Carbon Dioxide 23.0, Anion Gap 4 L, BUN 49 H, Creatinine 1.59 H, Estim Creat Clear Calc 35.71, Est GFR (MDRD) Af Amer 54 L, Est GFR (MDRD) Non-Af 44 L, BUN/Creatinine Ratio 30.8 H, Glucose 190 H, Calcium 8.8, Magnesium 1.4 L, TSH 1.080 07/02/24 06:48: POC Glucose 179 H 07/02/24 11:53: POC Glucose 237 H Rhythm Strip Rhythm Strip: Sinus Rhythm Rate: 75 Ectopy: None Cardiology Labs/Tests 07/02/24 04:25: WBC 5.3, RBC 2.58 L, Hgb 7.7 L, Hct 23.7 L, MCV 91.9, MCH 29.8, MCHC 32.5, Plt Count 142 L, MPV 10.4, Immature Gran % (Auto) 0.400, Neut % (Auto) 59.3, Lymph % (Auto) 23.4, [place] % (Auto) 9.8, Eos % (Auto) 6.2 H, Baso % (Auto) 0.9, Absolute Neuts (auto) 3.2, Nucleated RBC % 0, Sodium 141, Potassium 4.4, Chloride 114 H, Carbon Dioxide 23.0, Anion Gap 4 L, BUN 49 H, Creatinine 1.59 H, Est GFR (MDRD) Af Amer 54 L, Est GFR (MDRD) Non-Af 44 L, BUN/Creatinine Ratio 30.8 H, Glucose 190 H, Calcium 8.8, Magnesium 1.4 L Rhythm: EKG: ECHO: Stress Test: Cardiac Cath: PCI: CT Surgery: Holter monitor: EPS: PPM: CXR: Chest CT Scan:
[2024-07-02] MEDS: Midodrine HCl 5 MG Tablet 10 MG PO (18:03)
[2024-07-02 18:05] LABS: Bedside Glucose 222 mg/dL (74-106)
[2024-07-02] MEDS: Atorvastatin Calcium 40 MG Tablet PO (21:40)
[2024-07-02] MEDS: Carvedilol 12.5 MG Tablet PO (21:42)
[2024-07-02 22:04] LABS: Bedside Glucose 240 mg/dL (74-106)
[2024-07-03] VITALS (11 sets, daily range): BP systolic 104–131; BP diastolic 49–97; PULSE 63–83; RESP 16–65; TEMP 36–36.8; O2SAT 93–100
[2024-07-03] MEDS: Insulin Lispro 100 UNIT/ML INSULN.PEN SC ×4 (06:32→21:58)
[2024-07-03 06:51] LABS: Bedside Glucose 180 mg/dL (74-106)
[2024-07-03 06:57] LABS: Absolute Lymphocyte Count 0.86 X10^3/uL (0.83-4.51); Absolute Neutrophil Count 2.4 X10^3/uL (2.0-7.7); Basophil# 0.03 X10^3/uL; Basophil% 0.7 % (0-1); Eosinophil# 0.36 X10^3/uL; Eosinophils% 8.7 % (0-5); Hemoglobin 6.2 g/dL (13.0-16.5); Lymphocyte # 0.86 X10^3/ul (0.83-4.51); Lymphocyte % 20.8 % (19-41); Mean Corpuscular Hgb 29.4 pg (27.0-32.0); Mean Corpuscular Volume 94.8 fL (80-94); Mean Platelet Vol. 10.8 fl (6.2-12.0); Monocyte# 0.49 X10^3/uL; Monocyte% 11.9 % (0-10); NRBC Flagged by Analyzer 0.7 % (0-5); Neutrophil # 2.36 X10^3/uL (2.7-7.7); Neutrophil % 57.2 % (47-70); POSITIVE MORPHOLOGY YES; Platelet Count 128 K/mm3 (150-450); RBC Distribution Width CV 21.1 % (11.6-14.6); RBC Distribution Width SD 71.8 fl (35.1-43.9); Red Blood Count 2.11 M/mm3 (4.6-6.2); White Blood Count 4.1 K/mm3 (4.4-11.0)
[2024-07-03 07:09] LABS: Differential Indicated SCAN CRITERIA MET
--- NOTE | 2024-07-03 07:22 | PN.HOSP_ITS ---
Reason for Visit Reason for Visit: Diagnoses Acute posthemorrhagic anemia (06/29/24) Atherosclerotic heart disease of [place] coronary artery without angina pectoris (06/29/24) Other supraventricular tachycardia (06/29/24) Gastrointestinal hemorrhage, unspecified (06/29/24) Disorder of kidney and ureter, unspecified (06/29/24) Subjective Subjective Denies complaints. Objective Data Objective Data Vital Signs: Vital Signs Temp Pulse Resp BP Pulse Ox O2 Del Method O2 Flow Rate 36.0 C L 76 18 104/59 L 98 Room Air 2 07/03/24 03:19 07/03/24 03:19 07/03/24 03:19 07/03/24 03:19 07/03/24 03:19 07/03/24 03:19 06/30/24 21:55 Oxygen Flow Rate (L/min) 2 Oxygen Delivery Method Room Air Weight: 81.2 kg Body Mass Index (BMI) 25.7 Intake & Output: Intake and Output for Last 24 Hours 07/01/24 07/02/24 07/03/24 23:59 23:59 23:59 Intake Total 220 / 220 1164 / 1164 Output Total 1000 / 1000 1250 / 1250 150 / 150 Balance -780 / -780 -86 / -86 -150 / -150 Lab / Micro Data 07/03/24 06:35 07/03/24 06:35 Labs: Laboratory Results - last 24 hr 07/02/24 11:53: POC Glucose 237 H 07/02/24 17:26: POC Glucose 222 H 07/02/24 21:34: POC Glucose 240 H 07/03/24 06:31: POC Glucose 180 H 07/03/24 06:35: WBC 4.1 L, RBC 2.11 L, Hgb 6.2 L, Hct 20.0 L, MCV 94.8 H, MCH 29.4, MCHC 31.0 L, RDW Std Deviation 71.8 H, RDW Coeff of Artemio 21.1 H, Plt Count 128 L, MPV 10.8, Immature Gran % (Auto) 0.700, Neut % (Auto) 57.2, Lymph % (Auto) 20.8, Barry % (Auto) 11.9 H, Eos % (Auto) 8.7 H, Baso % (Auto) 0.7, Absolute Neuts (auto) 2.4, Absolute Lymphs (auto) 0.86, Nucleated RBC % 0.7 Micro: Microbiology 06/29/24 16:00 Stool Stool Occult Blood (TONA) - Final Occult Blood Positive Rhythm Strip Rhythm Strip: Sinus Rhythm Rate: 75 Ectopy: None Physical Exam Const alert and no apparent distress HEENT head/scalp atraumatic and moist oral mucous membranes Resp normal respiratory effort, no retractions, no use of accessory muscles and clear to auscultation bilaterally Cardio regular rate, regular rhythm, S1 normal heart sound and S2 normal heart sound GI GI Narrative: Abdomen soft. Slightly distended however. Extremity normal to inspection Assessment & Plan Assessment/Plan (1) Acute upper GI bleed: (2) ABLA (acute blood loss anemia): (3) Renal insufficiency: PLAN: Plan upper GI bleed * h/o PUD and varcies complicated by DAPT (now just clopidogrel) * PPI IV BID * GI took pt for EGD on 06/30 which showed grad III esophageal varices. 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 Hemostatic spray applied. Acute blood loss anemia * 2/2 GI bleed * Hg 6.2 will transfuse 1 more unit and observe (total 2 units during this hospitalization) CAD: * STEMI in February 2024. RIA x2 to mid and distal LAD at [facility]. (reviewed through [facility]) * continue clopidogrel, losartan and carvedilol * follow up with Dr. Montana as outpt. * Discussed with Dr. Underwood who feels it is okay to discontinue the aspirin but continue with clopidogrel for now. Cirrhosis * alpha-1 antitrypsin deficiency. No family history that he is aware of. * complicates care. * noted ascites * Will add midodrine Ascites * paracentesis cancelled by radiology because he is on clopidogrel. Unfortunately he cannot be taken off until February 2025. * Cancel paracentesis. Start Spironolactone and furosemide. Atrial tachycardia * back on carvedilol, dose increased * magnesium low. replaced * Discussed with Dr. Underwood who did not feel that it was actually a ventricular tachycardia but more of an atrial tachycardia. Debility * PT OT Chronic conditions: * Type 2 diabetes mellitus? Blood glucose 127 on admit. A1c 6.6%. Hold home metformin and glyburide. Will treat with sliding scale insulin with meals while inpatient. DVT prophylaxis: SCDs CODE STATUS: Full code 07/02: I had a long conversation with his . She explained how overwhelmed she was about just going to his doctors appointments. I recommended changing his CODE STATUS to DNR Comfort Care arrest. Being that she is so overwhelmed with these doctors appointments, his medical complexity, the issue is if he were to have cardiac arrest and survive and be on a ventilator he may not be able to come off very easily if at all which would lead her to have even more significant decisions to make such as withdrawing of care if that were necessary. Patient is too confused to make that decision at this time. She was not able to make a decision when I asked her. Charges/Coding Visit Charges Inpatient E&M: 09020 Subs Hosp L2
[2024-07-03 07:33] LABS: Anion Gap 3 (5-15); BUN 51 mg/dL (7-18); BUN/Creat Ratio 33.8 RATIO (10-20); Calcium,Total 8.3 mg/dL (8.5-10.1); Chloride 113 mmol/L (98-107); Creatinine, Serum 1.51 mg/dL (0.70-1.30); EST Glomerular Filtration Rate 47 mL/min (>60); Est Glom Filt Rate - Afr Amer 57 mL/min (>60); Glucose 205 mg/dL (74-106); Magnesium 1.5 mg/dL (1.6-2.6); Potassium 4.2 mmol/L (3.5-5.1); Sodium Level 141 mmol/L (136-145)
[2024-07-03 07:50] LABS: Anisocytosis 1+
[2024-07-03] MEDS: Pantoprazole Sodium 40 MG in 0.9% Normal Saline (100mL MB+) 100 ML 330 MG IV ×2 (09:20→22:00)
[2024-07-03] MEDS: Clopidogrel Bisulfate 75 MG Tablet PO (09:21)
[2024-07-03] MEDS: Midodrine HCl 5 MG Tablet 10 MG PO ×3 (09:21→17:21)
[2024-07-03] MEDS: Carvedilol 12.5 MG Tablet PO ×2 (09:21→22:00)
[2024-07-03] MEDS: Furosemide 20 MG Tablet PO (09:21)
[2024-07-03] MEDS: Spironolactone 50 MG Tablet PO (09:21)
[2024-07-03] MEDS: 0.9% Saline Lock 10 ML Syringe IV ×2 (09:32→22:04)
[2024-07-03 12:23] LABS: Bedside Glucose 295 mg/dL (74-106)
[2024-07-03 16:26] LABS: Hematocrit 23.6 % (40-54); Hemoglobin 7.4 g/dL (13.0-16.5)
[2024-07-03 18:05] LABS: Bedside Glucose 246 mg/dL (74-106)
[2024-07-03] MEDS: Atorvastatin Calcium 40 MG Tablet PO (22:00)
[2024-07-03 22:27] LABS: Bedside Glucose 161 mg/dL (74-106)
[2024-07-04] VITALS (7 sets, daily range): BP systolic 95–109; BP diastolic 54–86; PULSE 61–79; RESP 16–18; TEMP 35.9–36.6; O2SAT 99–100
[2024-07-04 06:13] LABS: Absolute Lymphocyte Count 0.92 X10^3/uL (0.83-4.51); Absolute Neutrophil Count 2.8 X10^3/uL (2.0-7.7); Basophil# 0.04 X10^3/uL; Basophil% 0.8 % (0-1); Eosinophils% 6.3 % (0-5); Hematocrit 23.9 % (40-54); Hemoglobin 7.8 g/dL (13.0-16.5); Lymphocyte # 0.92 X10^3/ul (0.83-4.51); Lymphocyte % 19.2 % (19-41); Mean Corp Hgb Conc 32.6 g/dL (32-36); Mean Corpuscular Hgb 29.7 pg (27.0-32.0); Mean Corpuscular Volume 90.9 fL (80-94); Mean Platelet Vol. 11.3 fl (6.2-12.0); Monocyte% 14.6 % (0-10); NRBC Flagged by Analyzer 0.4 % (0-5); Neutrophil % 58.7 % (47-70); POSITIVE MORPHOLOGY YES; Platelet Count 111 K/mm3 (150-450); RBC Distribution Width CV 21.1 % (11.6-14.6); RBC Distribution Width SD 65.5 fl (35.1-43.9); Red Blood Count 2.63 M/mm3 (4.6-6.2); White Blood Count 4.8 K/mm3 (4.4-11.0)
[2024-07-04 06:16] LABS: Differential Indicated SCAN CRITERIA MET
[2024-07-04] MEDS: Insulin Lispro 100 UNIT/ML INSULN.PEN SC ×4 (06:30→19:58)
[2024-07-04 06:40] LABS: Anisocytosis 2+; Differential Comment SCANNED; Platelet Estimate SLT DEC (ADEQ); Polychromasia 1+
[2024-07-04 06:41] LABS: Basophilic Stippling RARE; Bite Cell RARE; Hypochromasia 1+; Macrocytosis 1+; Ovalocyte 1+; Stomatocyte 1+
[2024-07-04 06:43] LABS: Anion Gap 4 (5-15); BUN 45 mg/dL (7-18); Calcium,Total 8.4 mg/dL (8.5-10.1); Chloride 111 mmol/L (98-107); Creatinine, Serum 1.45 mg/dL (0.70-1.30); EST Glomerular Filtration Rate 49 mL/min (>60); Est Glom Filt Rate - Afr Amer 60 mL/min (>60); Estimated Creatinine Clearance 39.16 ml/min; Glucose 219 mg/dL (74-106); Potassium 4.2 mmol/L (3.5-5.1); Sodium Level 139 mmol/L (136-145)
[2024-07-04 06:50] LABS: Bedside Glucose 201 mg/dL (74-106)
--- NOTE | 2024-07-04 08:00 | PN.HOSP_ITS ---
Reason for Visit Reason for Visit: Diagnoses Acute posthemorrhagic anemia (06/29/24) Atherosclerotic heart disease of [place] coronary artery without angina pectoris (06/29/24) Other supraventricular tachycardia (06/29/24) Gastrointestinal hemorrhage, unspecified (06/29/24) Disorder of kidney and ureter, unspecified (06/29/24) Subjective Subjective No new events. Objective Data Objective Data Vital Signs: Vital Signs Temp Pulse Resp BP Pulse Ox O2 Del Method O2 Flow Rate 36.1 C L 61 18 107/60 99 Room Air 2 07/04/24 03:28 07/04/24 07:00 07/04/24 03:28 07/04/24 03:28 07/04/24 03:28 07/04/24 03:28 06/30/24 21:55 Oxygen Flow Rate (L/min) 2 Oxygen Delivery Method Room Air Weight: 81.2 kg Body Mass Index (BMI) 25.7 Intake & Output: Intake and Output for Last 24 Hours 07/02/24 07/03/24 07/04/24 23:59 23:59 23:59 Intake Total 1164 / 1164 1440 / 1440 Output Total 1250 / 1250 750 / 750 250 / 250 Balance -86 / -86 690 / 690 -250 / -250 Lab / Micro Data 07/04/24 05:16 07/04/24 05:16 Labs: Laboratory Results - last 24 hr 07/03/24 07:44: Blood Type B NEGATIVE, Antibody Screen NEGATIVE, Crossmatch See Detail 07/03/24 11:57: POC Glucose 295 H 07/03/24 16:05: Hgb 7.4 L, Hct 23.6 L 07/03/24 17:19: POC Glucose 246 H 07/03/24 21:58: POC Glucose 161 H 07/04/24 05:16: WBC 4.8, RBC 2.63 L, Hgb 7.8 L, Hct 23.9 L, MCV 90.9, MCH 29.7, MCHC 32.6 D, RDW Std Deviation 65.5 H, RDW Coeff of Artemio 21.1 H, Plt Count 111 L , MPV 11.3, Immature Gran % (Auto) 0.400, Neut % (Auto) 58.7, Lymph % (Auto) 19.2, [place] % (Auto) 14.6 H, Eos % (Auto) 6.3 H, Baso % (Auto) 0.8, Absolute Neuts (auto) 2.8, Absolute Lymphs (auto) 0.92, Nucleated RBC % 0.4, Differential Comment SCANNED, Platelet Estimate SLT DEC, Polychromasia 1+, Hypochromasia 1+, Basophilic Stippling RARE, Anisocytosis 2+, Macrocytosis 1+, Ovalocytes 1+, Stomatocytes 1+, Bite Cells RARE, Sodium 139, Potassium 4.2, Chloride 111 H, Carbon Dioxide 23.0, Anion Gap 4 L, BUN 45 H, Creatinine 1.45 H, Estim Creat Clear Calc 39.16, Est GFR (MDRD) Af Amer 60, Est GFR (MDRD) Non-Af 49 L, B UN/Creatinine Ratio 31.0 H, Glucose 219 H, Calcium 8.4 L 07/04/24 06:30: POC Glucose 201 H Micro: Microbiology 06/29/24 16:00 Stool Stool Occult Blood (TONA) - Final Occult Blood Positive Rhythm Strip Rhythm Strip: Sinus Rhythm Rate: 75 Ectopy: None Physical Exam Const alert and no apparent distress Constitutional Narrative: sleepy. afebrile. non-toxic. HEENT head/scalp atraumatic and moist oral mucous membranes Resp normal respiratory effort, no retractions, no use of accessory muscles and clear to auscultation bilaterally Cardio regular rate, regular rhythm, S1 normal heart sound and S2 normal heart sound GI normal to inspection, nondistended, normoactive bowel sounds, soft to palpation, non-tender and non-distended Extremity normal to inspection, full ROM and no clubbing, cyanosis or edema Neuro moves all extremities Sensorium / Orientation: awake Assessment & Plan Assessment/Plan (1) Acute upper GI bleed: (2) ABLA (acute blood loss anemia): (3) Renal insufficiency: PLAN: Plan upper GI bleed * h/o PUD and varcies complicated by DAPT (now just clopidogrel) * PPI IV BID * GI took pt for EGD on 06/30 which showed grad III esophageal varices. 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 Hemostatic spray applied. Acute blood loss anemia * 2/2 GI bleed compounded by use of DAPT * Transfused 2 units PRBCs. * monitor CAD: * STEMI in February 2024. RIA x2 to mid and distal LAD at [facility]. (reviewed through [facility]) * continue clopidogrel, losartan and carvedilol * follow up with Dr. Montana as outpt. * Discussed with Dr. Underwood who feels it is okay to discontinue the aspirin but continue with clopidogrel for now. Cirrhosis * alpha-1 antitrypsin deficiency. No family history that he is aware of. * complicates care. * noted ascites * Will add midodrine Ascites * paracentesis cancelled by radiology because he is on clopidogrel. Unfortunately he cannot be taken off until February 2025. * Start Spironolactone and furosemide. Atrial tachycardia * back on carvedilol, dose increased * magnesium low. replaced * Discussed with Dr. Underwood who did not feel that it was actually a ventricular tachycardia but more of an atrial tachycardia. Debility * PT OT Chronic conditions: * Type 2 diabetes mellitus? Blood glucose 127 on admit. A1c 6.6%. Hold home metformin and glyburide. Will treat with sliding scale insulin with meals while inpatient. DVT prophylaxis: SCDs CODE STATUS: Full code 07/02: I had a long conversation with his . She explained how overwhelmed she was about just going to his doctors appointments. I recommended changing his CODE STATUS to DNR Comfort Care arrest. Being that she is so overwhelmed with these doctors appointments, his medical complexity, the issue is if he were to have cardiac arrest and survive and be on a ventilator he may not be able to come off very easily if at all which would lead her to have even more significant decisions to make such as withdrawing of care if that were necessary. Patient is too confused to make that decision at this time. She was not able to make a decision when I asked her. Disposition: TBD. Monitor the patient overnight to ensure ongoing stability. TCU when stable. Charges/Coding Visit Charges Inpatient E&M: 23692 Subs Hosp L2
[2024-07-04] MEDS: Carvedilol 12.5 MG Tablet PO ×2 (09:34→19:58)
[2024-07-04] MEDS: Clopidogrel Bisulfate 75 MG Tablet PO (09:34)
[2024-07-04] MEDS: Spironolactone 50 MG Tablet PO (09:34)
[2024-07-04] MEDS: Midodrine HCl 5 MG Tablet 10 MG PO ×3 (09:35→17:03)
[2024-07-04] MEDS: Pantoprazole Sodium 40 MG in 0.9% Normal Saline (100mL MB+) 100 ML 330 MG IV ×2 (09:40→20:03)
[2024-07-04] MEDS: 0.9% Saline Lock 10 ML Syringe IV ×2 (09:45→19:58)
[2024-07-04] MEDS: 0.9% Normal Saline (100mL Bag) 100 ML 15 ML IV (09:48)
[2024-07-04] MEDS: Furosemide 20 MG Tablet PO (11:58)
[2024-07-04 12:18] LABS: Bedside Glucose 249 mg/dL (74-106)
[2024-07-04 17:25] LABS: Bedside Glucose 243 mg/dL (74-106)
--- NOTE | 2024-07-04 19:50 | NURSING ---
Pt falling asleep during assessment. States that he would like his pills.
[2024-07-04] MEDS: Atorvastatin Calcium 40 MG Tablet PO (19:58)
[2024-07-04 20:18] LABS: Bedside Glucose 197 mg/dL (74-106)
[2024-07-05] VITALS (12 sets, daily range): BP systolic 96–123; BP diastolic 54–68; PULSE 57–84; RESP 16–18; TEMP 36.2–36.5; O2SAT 94–100
[2024-07-05 06:02] LABS: Absolute Neutrophil Count 2.1 X10^3/uL (2.0-7.7); Basophil# 0.04 X10^3/uL; Eosinophil# 0.27 X10^3/uL; Eosinophils% 6.8 % (0-5); Hematocrit 22.3 % (40-54); Hemoglobin 7.1 g/dL (13.0-16.5); Lymphocyte % 22.7 % (19-41); Mean Corp Hgb Conc 31.8 g/dL (32-36); Mean Corpuscular Hgb 29.8 pg (27.0-32.0); Mean Corpuscular Volume 93.7 fL (80-94); Mean Platelet Vol. 10.8 fl (6.2-12.0); Monocyte# 0.64 X10^3/uL; Monocyte% 16.1 % (0-10); NRBC Flagged by Analyzer 0.5 % (0-5); Neutrophil % 52.9 % (47-70); POSITIVE MORPHOLOGY YES; Platelet Count 123 K/mm3 (150-450); RBC Distribution Width CV 21.7 % (11.6-14.6); RBC Distribution Width SD 68.9 fl (35.1-43.9); Red Blood Count 2.38 M/mm3 (4.6-6.2)
[2024-07-05] MEDS: Insulin Lispro 100 UNIT/ML INSULN.PEN SC ×4 (06:10→22:21)
[2024-07-05 06:27] LABS: Differential Indicated SCAN CRITERIA MET
[2024-07-05 06:29] LABS: Anion Gap 5 (5-15); BUN 41 mg/dL (7-18); BUN/Creat Ratio 27.5 RATIO (10-20); Calcium,Total 8.1 mg/dL (8.5-10.1); Chloride 110 mmol/L (98-107); Creatinine, Serum 1.49 mg/dL (0.70-1.30); EST Glomerular Filtration Rate 48 mL/min (>60); Est Glom Filt Rate - Afr Amer 58 mL/min (>60); Estimated Creatinine Clearance 38.11 ml/min; Glucose 197 mg/dL (74-106); Magnesium 1.3 mg/dL (1.6-2.6); Sodium Level 138 mmol/L (136-145)
[2024-07-05 06:31] LABS: Bedside Glucose 173 mg/dL (74-106)
[2024-07-05 07:15] LABS: Anisocytosis 2+; Differential Comment SCANNED
--- NOTE | 2024-07-05 07:45 | PCM.PN.HOSP ---
Reason for Visit Reason for Visit: Diagnoses Acute posthemorrhagic anemia (06/29/24) Atherosclerotic heart disease of [place] coronary artery without angina pectoris (06/29/24) Other supraventricular tachycardia (06/29/24) Gastrointestinal hemorrhage, unspecified (06/29/24) Disorder of kidney and ureter, unspecified (06/29/24) Subjective Subjective Denies complaints. Objective Data Objective Data Vital Signs: Vital Signs Temp Pulse Resp BP Pulse Ox O2 Del Method O2 Flow Rate 36.3 C L 72 18 96/60 94 Room Air 2 07/05/24 02:30 07/05/24 02:30 07/05/24 02:30 07/05/24 02:30 07/05/24 02:30 07/05/24 02:30 06/30/24 21:55 Oxygen Flow Rate (L/min) 2 Oxygen Delivery Method Room Air Weight: 81.2 kg Body Mass Index (BMI) 25.7 Intake & Output: Intake and Output for Last 24 Hours 07/03/24 07/04/24 07/05/24 23:59 23:59 23:59 Intake Total 1440 / 1440 677.00 / 797.00 120 / 120 Output Total 750 / 750 650 / 860 510 / 510 Balance 690 / 690 27.00 / -63.00 -390 / -390 Lab / Micro Data 07/05/24 08:58 07/05/24 05:27 Labs: Laboratory Results - last 24 hr 07/04/24 11:55: POC Glucose 249 H 07/04/24 17:01: POC Glucose 243 H 07/04/24 19:54: POC Glucose 197 H 07/05/24 05:27: WBC 4.0 L, RBC 2.38 L, Hgb 7.1 L, Hct 22.3 L, MCV 93.7, MCH 29.8, MCHC 31.8 L, RDW Std Deviation 68.9 H, RDW Coeff of Artemio 21.7 H, Plt Count 123 L, MPV 10.8, Immature Gran % (Auto) 0.500, Neut % (Auto) 52.9, Lymph % (Auto) 22.7, [place] % (Auto) 16.1 H, Eos % (Auto) 6.8 H, Baso % (Auto) 1.0, Absolute Neuts (auto) 2.1, Absolute Lymphs (auto) 0.90, Nucleated RBC % 0.5, Differential Comment SCANNED, Anisocytosis 2+, Sodium 138, Potassium 4.0, Chloride 110 H, Carbon Dioxide 23.0, Anion Gap 5, BUN 41 H, Creatinine 1.49 H, Estim Creat Clear Calc 38.11, Est GFR (MDRD) Af Amer 58 L, Est GFR (MDRD) Non-Af 48 L, BUN/Creatinine Ratio 27.5 H, Glucose 197 H, Calcium 8.1 L, Magnesium 1.3 L 07/05/24 06:09: POC Glucose 173 H Micro: Microbiology 06/29/24 16:00 Stool Stool Occult Blood (TONA) - Final Occult Blood Positive Rhythm Strip Rhythm Strip: Sinus Rhythm Rate: 75 Ectopy: None Physical Exam Const alert and no apparent distress HEENT head/scalp atraumatic and moist oral mucous membranes Resp normal respiratory effort, no retractions, no use of accessory muscles and clear to auscultation bilaterally Cardio regular rate, regular rhythm, S1 normal heart sound and S2 normal heart sound GI normal to inspection, nondistended, normoactive bowel sounds, soft to palpation and non-tender GI Narrative: distended. soft. Extremity Extremity Narrative: edema Neuro Sensorium / Orientation: awake and alert Assessment & Plan Assessment/Plan (1) Acute upper GI bleed: (2) ABLA (acute blood loss anemia): (3) Renal insufficiency: PLAN: Plan upper GI bleed h/o PUD and varcies complicated by DAPT (now just clopidogrel) PPI IV BID GI took pt for EGD on 06/30 which showed grad III esophageal varices. 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 Hemostatic spray applied. Acute blood loss anemia 2/2 GI bleed compounded by use of DAPT Transfused 2 units PRBCs. monitor. recheck to verify accuracy. requested Dr. Mcgee to reevaluate as he has been transfused 2 units post EGD. CAD: STEMI in February 2024. RIA x2 to mid and distal LAD at [facility]. (reviewed through [facility]) continue clopidogrel, losartan and carvedilol follow up with Dr. Montana as outpt. Discussed with Dr. Underwood who feels it is okay to discontinue the aspirin but continue with clopidogrel for now. Cirrhosis alpha-1 antitrypsin deficiency. No family history that he is aware of. complicates care. noted ascites Will add midodrine Ascites paracentesis cancelled by radiology because he is on clopidogrel. Unfortunately he cannot be taken off until February 2025. Start Spironolactone and furosemide. Atrial tachycardia back on carvedilol, dose increased Discussed with Dr. Underwood who did not feel that it was actually a ventricular tachycardia but more of an atrial tachycardia. Magnesium replace. monitor Debility PT OT Chronic conditions: Type 2 diabetes mellitus? Blood glucose 127 on admit. A1c 6.6%. Hold home metformin and glyburide. Will treat with sliding scale insulin with meals while inpatient. DVT prophylaxis: SCDs CODE STATUS: Full code 07/02: I had a long conversation with his . She explained how overwhelmed she was about just going to his doctors appointments. I recommended changing his CODE STATUS to DNR Comfort Care arrest. Being that she is so overwhelmed with these doctors appointments, his medical complexity, the issue is if he were to have cardiac arrest and survive and be on a ventilator he may not be able to come off very easily if at all which would lead her to have even more significant decisions to make such as withdrawing of care if that were necessary. Patient is too confused to make that decision at this time. She was not able to make a decision when I asked her. Disposition: TCU when stable. Charges/Coding Visit Charges Inpatient E&M: 88286 Subs Hosp L2
[2024-07-05] MEDS: Magnesium Sulfate 4gm/100mL 4 GM/100 ML IV.SOLN. IV (09:06)
[2024-07-05] MEDS: Pantoprazole Sodium 40 MG in 0.9% Normal Saline (100mL MB+) 100 ML 330 MG IV ×2 (09:08→22:15)
[2024-07-05 09:10] LABS: Hematocrit 21.4 % (40-54); Hemoglobin 6.9 g/dL (13.0-16.5)
[2024-07-05] MEDS: Midodrine HCl 5 MG Tablet 10 MG PO ×3 (09:10→16:23)
[2024-07-05] MEDS: Furosemide 20 MG Tablet PO (09:11)
[2024-07-05] MEDS: Spironolactone 50 MG Tablet PO (09:11)
[2024-07-05] MEDS: Clopidogrel Bisulfate 75 MG Tablet PO (09:11)
[2024-07-05] MEDS: Carvedilol 12.5 MG Tablet PO ×2 (09:11→22:14)
[2024-07-05] MEDS: Glucerna Shake 120 ML LIQUID PO ×3 (09:17→16:27)
[2024-07-05 11:53] LABS: Bedside Glucose 241 mg/dL (74-106)
--- NOTE | 2024-07-05 16:00 | CASEMGMT ---
[facility] TCU is able to take patient when ready. will notify patient's . Daniela BLACKMAN
--- NOTE | 2024-07-05 16:40 | PN.GI_ITS ---
Subjective Subjective Patient denies any chest pain or shortness of breath. He has been eating without any problems. He does complain of some abdominal distention. Objective Data Objective Data Vital Signs: Vital Signs Temp Pulse Resp BP Pulse Ox O2 Del Method O2 Flow Rate 97.7 F L 66 18 123/67 H 98 Room Air 2 07/05/24 16:07 07/05/24 16:07 07/05/24 16:07 07/05/24 16:07 07/05/24 16:07 07/05/24 16:07 06/30/24 21:55 Oxygen Flow Rate (L/min) 2 Oxygen Delivery Method Room Air Weight: 179 lb 0.246 oz Body Mass Index (BMI) 25.7 Intake & Output: Intake and Output for Last 24 Hours 07/03/24 07/04/24 07/05/24 23:59 23:59 23:59 Intake Total 1440 / 1440 677.00 / 797.00 1080 / 1080 Output Total 750 / 750 650 / 860 510 / 510 Balance 690 / 690 27.00 / -63.00 570 / 570 Lab / Micro Data 07/05/24 08:58 07/05/24 05:27 Labs: Laboratory Results - last 24 hr 07/03/24 07:44: Blood Type B NEGATIVE, Antibody Screen NEGATIVE, Crossmatch See Detail 07/04/24 17:01: POC Glucose 243 H 07/04/24 19:54: POC Glucose 197 H 07/05/24 05:27: WBC 4.0 L, RBC 2.38 L, Hgb 7.1 L, Hct 22.3 L, MCV 93.7, MCH 29.8, MCHC 31.8 L, RDW Std Deviation 68.9 H, RDW Coeff of Artemio 21.7 H, Plt Count 123 L, MPV 10.8, Immature Gran % (Auto) 0.500, Neut % (Auto) 52.9, Lymph % (Auto) 22.7, [place] % (Auto) 16.1 H, Eos % (Auto) 6.8 H, Baso % (Auto) 1.0, Absolute Neuts (auto) 2.1, Absolute Lymphs (auto) 0.90, Nucleated RBC % 0.5, Differential Comment SCANNED, Anisocytosis 2+, Sodium 138, Potassium 4.0, C hloride 110 H, Carbon Dioxide 23.0, Anion Gap 5, BUN 41 H, Creatinine 1.49 H, Estim Creat Clear Calc 38.11, Est GFR (MDRD) Af Amer 58 L, Est GFR (MDRD) Non-Af 48 L, BUN/Creatinine Ratio 27.5 H, Glucose 197 H, Calcium 8.1 L, Magnesium 1.3 L 07/05/24 06:09: POC Glucose 173 H 07/05/24 08:58: Hgb 6.9 L, Hct 21.4 L 07/05/24 11:28: POC Glucose 241 H Micro: Microbiology 06/29/24 16:00 Stool Stool Occult Blood (TONA) - Final Occult Blood Positive Rhythm Strip Rhythm Strip: Sinus Rhythm Rate: 75 Ectopy: None Physical Exam Const alert and no apparent distress HEENT head/scalp atraumatic and moist oral mucous membranes Resp normal respiratory effort, no retractions, no use of accessory muscles and clear to auscultation bilaterally Cardio regular rate, regular rhythm, S1 normal heart sound and S2 normal heart sound GI normal to inspection, nondistended, normoactive bowel sounds, soft to palpation and non-tender GI Narrative: distended. soft. Extremity Extremity Narrative: edema Neuro Sensorium / Orientation: awake and alert Assessment & Plan Assessment/Plan (1) Acute upper GI bleed: (2) ABLA (acute blood loss anemia): (3) Renal insufficiency: PLAN: Plan Patient is an 84-year-old male who presented [facility] ED on 06/29/2024 with dark stools and worsening weakness. 1. Concern for recurrent upper GI bleed with acute on chronic blood loss anemia ? Admit under inpatient status to PCU. GI consulted. Hemoglobin 8.5 on admit, slightly down from last hemoglobin 9.5 on 05/31. Had upper GI bleed in December and EGD showed nonbleeding gastric ulcers. Repeat EGD on 02/17 showed ulcers with varices, portal hypertensive gastropathy and gastritis. Patient has had to remain on dual antiplatelet therapy given recent history of STEMI, suspect recurrent upper GI bleed in setting of DAPT. N.p.o. at midnight with plan for EGD tomorrow. IV PPI twice daily. Continuing aspirin and Plavix as noted below. Follow-up a.m. CBC. 2. Recent history of STEMI with stenting, history of CAD, hypertension, hyperlipidemia ? Hospitalized at [facility] with STEMI in February. Had RIA x 2 placed to the mid and distal LAD. Recommendation per cardiology was for uninterrupted DAPT for 1 year. Given this recommendation, will continue aspirin and Plavix despite concern for recurrent GI bleed as noted above. Borderline hypotension with CESIA on admit, will hold home beta-kwame and MATEUS inhibitor. 3. Concern for cirrhosis with ascites, concern for hepatic encephalopathy ? GI consulted as above. Follows with both [facility] and GI, see HPI for further details. Had abdominal distention with fluid wave noted on exam on admit. Abdominal ultrasound showed hepatic cirrhosis with ascites and diffuse fatty infiltration of the liver with no focal lesions identified. MELD score of 18 on admit. Radiology consulted for diagnostic and therapeutic paracentesis. Ammonia level ordered. Appreciate further GI recommendations. 4. Acute on chronic debility ? PT/OT/case management consulted. 5. CESIA on CKD stage IIIa ? Creatinine 1.94 on admit, baseline around 1.3-1.5. Suspect mild prerenal CESIA but cannot rule out some degree of hepatorenal syndrome. Gave 500 cc normal saline bolus and 1 dose of IV albumin on admit. Follow-up a.m. BMP and monitor urine output. Urine studies ordered. 6. Type 2 diabetes mellitus ? Blood glucose 127 on admit. A1c 6.6%. Hold home metformin and glyburide. Will treat with sliding scale insulin with meals while inpatient. DVT prophylaxis: SCDs CODE STATUS: Full code, verified. Verified with patient and on admission. Expected disposition: TBD Total clinical time spent by myself addressing the patient's medical issues, reviewing all the data, and collaborating with patient's care team: 75 minutes.
--- NOTE | 2024-07-05 16:40 | EX.PCM.PN.GI ---
Subjective Subjective Patient denies any chest pain or shortness of breath. He has been eating without any problems. He does complain of some abdominal distention. Objective Data Objective Data Vital Signs: Vital Signs Temp Pulse Resp BP Pulse Ox O2 Del Method O2 Flow Rate 97.7 F L 66 18 123/67 H 98 Room Air 2 07/05/24 16:07 07/05/24 16:07 07/05/24 16:07 07/05/24 16:07 07/05/24 16:07 07/05/24 16:07 06/30/24 21:55 Oxygen Flow Rate (L/min) 2 Oxygen Delivery Method Room Air Weight: 179 lb 0.246 oz Body Mass Index (BMI) 25.7 Intake & Output: Intake and Output for Last 24 Hours 07/03/24 07/04/24 07/05/24 23:59 23:59 23:59 Intake Total 1440 / 1440 677.00 / 797.00 1080 / 1080 Output Total 750 / 750 650 / 860 510 / 510 Balance 690 / 690 27.00 / -63.00 570 / 570 Lab / Micro Data 07/05/24 08:58 07/05/24 05:27 Labs: Laboratory Results - last 24 hr 07/03/24 07:44: Blood Type B NEGATIVE, Antibody Screen NEGATIVE, Crossmatch See Detail 07/04/24 17:01: POC Glucose 243 H 07/04/24 19:54: POC Glucose 197 H 07/05/24 05:27: WBC 4.0 L, RBC 2.38 L, Hgb 7.1 L, Hct 22.3 L, MCV 93.7, MCH 29.8, MCHC 31.8 L, RDW Std Deviation 68.9 H, RDW Coeff of Artemio 21.7 H, Plt Count 123 L, MPV 10.8, Immature Gran % (Auto) 0.500, Neut % (Auto) 52.9, Lymph % (Auto) 22.7, [place] % (Auto) 16.1 H, Eos % (Auto) 6.8 H, Baso % (Auto) 1.0, Absolute Neuts (auto) 2.1, Absolute Lymphs (auto) 0.90, Nucleated RBC % 0.5, Differential Comment SCANNED, Anisocytosis 2+, Sodium 138, Potassium 4.0, Chloride 110 H, Carbon Dioxide 23.0, Anion Gap 5, BUN 41 H, Creatinine 1.49 H, Estim Creat Clear Calc 38.11, Est GFR (MDRD) Af Amer 58 L, Est GFR (MDRD) Non-Af 48 L, BUN/Creatinine Ratio 27.5 H, Glucose 197 H, Calcium 8.1 L, Magnesium 1.3 L 07/05/24 06:09: POC Glucose 173 H 07/05/24 08:58: Hgb 6.9 L, Hct 21.4 L 07/05/24 11:28: POC Glucose 241 H Micro: Microbiology 06/29/24 16:00 Stool Stool Occult Blood (TONA) - Final Occult Blood Positive Rhythm Strip Rhythm Strip: Sinus Rhythm Rate: 75 Ectopy: None Physical Exam Const alert and no apparent distress HEENT head/scalp atraumatic and moist oral mucous membranes Resp normal respiratory effort, no retractions, no use of accessory muscles and clear to auscultation bilaterally Cardio regular rate, regular rhythm, S1 normal heart sound and S2 normal heart sound GI normal to inspection, nondistended, normoactive bowel sounds, soft to palpation and non-tender GI Narrative: distended. soft. Extremity Extremity Narrative: edema Neuro Sensorium / Orientation: awake and alert Assessment & Plan Assessment/Plan (1) Acute upper GI bleed: (2) ABLA (acute blood loss anemia): (3) Renal insufficiency: PLAN: Plan Patient is an 84-year-old male who presented [facility] ED on 06/29/2024 with dark stools and worsening weakness. 1. Concern for recurrent upper GI bleed with acute on chronic blood loss anemia ? Hemoglobin 8.5 on admit, slightly down from last hemoglobin 9.5 on 05/31. Had upper GI bleed in December and EGD showed nonbleeding gastric ulcers. Repeat EGD on 02/17 showed ulcers with varices, portal hypertensive gastropathy and gastritis. Patient has had to remain on dual antiplatelet therapy given recent history of STEMI. I was consulted and he underwent an upper endoscopy: Findings: Grade III varices were found in the mid esophagus and in the distal esophagus. They were 24 mm in largest diameter. Moderate portal hypertensive gastropathy was found in the entire examined stomach. A few 9 mm angiodysplastic lesions with bleeding were found in the third portion of the duodenum. To stop active bleeding, hemostatic spray was deployed. Several sprays were applied. There was no bleeding at the end of the procedure. Impression: - Grade III esophageal varices. - Portal hypertensive gastropathy. 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 Hemostatic spray applied. 2. Recent history of STEMI with stenting, history of CAD, hypertension, hyperlipidemia ? Hospitalized at [facility] with STEMI in February. Had RIA x 2 placed to the mid and distal LAD. Recommendation per cardiology is that he can be on Plavix monotherapy. 3. Concern for cirrhosis with ascites, concern for hepatic encephalopathy ? Follows with both [facility] and GI, see HPI for further details. Had abdominal distention with fluid wave noted on exam on admit. Abdominal ultrasound showed hepatic cirrhosis with ascites and diffuse fatty infiltration of the liver with no focal lesions identified. MELD score of 18 on admit. Radiology consulted for diagnostic and therapeutic paracentesis. He could not get diagnostic or therapeutic paracentesis due to the fact that he cannot come off of Plavix. Ammonia level was only mildly elevated. -He has a very poor performance status and a very poor prognosis and regarding the complications from cirrhosis. He has had 2 severe GI bleeds likely from the small bowel at 2 different institutions requiring hospitalization. I had a long talk with the patient's explaining that the best thing we can recommend is beta-kwame therapy for his varices in his esophagus and symptomatic treatment of angiodysplastic lesions in the small bowel if he bleeds. He is not a candidate for TIPS procedure to relieve his portal hypertension leading to angiodysplasia and varices to cause recurrent GI bleeding due to the fact that he cannot come off of Plavix to get a TIPS procedure. That would be the ultimate treatment for him and regarding a good prognosis. Complication from that does include worsening encephalopathy however it would be his best chance at not having any recurrent GI bleeding due to decompression of his liver with a TIPS procedure. -Agree with midodrine 3 times a day to decrease ascites and continue beta-kwame therapy for varices. Recommend Xifaxan 550 mg twice a day and lactulose 30 mg twice a day. If his kidneys can handle a small dose of Lasix and Aldactone that would help prevent worsening ascites. I will discuss that with cardiology and nephrology first prior to starting those medicines. Charges/Coding Visit Charges Inpatient E&M: 34777 Subs Hosp L3
[2024-07-05 16:54] LABS: Bedside Glucose 291 mg/dL (74-106)
[2024-07-05] MEDS: Atorvastatin Calcium 40 MG Tablet PO (22:15)
[2024-07-05 22:42] LABS: Bedside Glucose 215 mg/dL (74-106)
[2024-07-06] VITALS (12 sets, daily range): BP systolic 87–122; BP diastolic 40–81; PULSE 52–89; RESP 16–18; TEMP 36–36.9; O2SAT 93–99; BMI 25.6
--- NOTE | 2024-07-06 05:55 | EKG12_ITS ---
Test Reason : AM EKG Blood Pressure : */* mmHG Vent. Rate : 62 BPM Atrial Rate : 62 BPM P-R Int : 162 ms QRS Dur : 148 ms QT Int : 468 ms P-R-T Axes : 10 -57 31 degrees QTcB Int : 475 ms Normal sinus rhythm Right bundle branch block Left anterior fascicular block Bifascicular block Septal infarct (cited on or before 29-Jun-2024) Abnormal ECG Confirmed by ALEYDA PEREA, HECTOR ([id number]), continuity editor ALYCIA MAN ([id number]) on 07/07/2024 5:57:34 AM Referred By: Santino Cao Confirmed By: HECTOR MAYNARD MD
[2024-07-06 06:07] LABS: International Normalized Ratio 1.4; Prothrombin Time (Protime)PT. 16.8 SECONDS (11.7-14.9)
[2024-07-06 06:08] LABS: Partial Thromboplast Time 38.9 Seconds (24.1-36.2)
[2024-07-06 06:25] LABS: Absolute Lymphocyte Count 0.77 X10^3/uL (0.83-4.51); Absolute Neutrophil Count 2.5 X10^3/uL (2.0-7.7); Basophil# 0.03 X10^3/uL; Basophil% 0.7 % (0-1); Eosinophil# 0.22 X10^3/uL; Eosinophils% 5.2 % (0-5); Hematocrit 26.4 % (40-54); Hemoglobin 8.7 g/dL (13.0-16.5); Lymphocyte # 0.77 X10^3/ul (0.83-4.51); Lymphocyte % 18.3 % (19-41); Mean Corpuscular Hgb 29.5 pg (27.0-32.0); Mean Corpuscular Volume 89.5 fL (80-94); Mean Platelet Vol. 10.5 fl (6.2-12.0); Monocyte# 0.68 X10^3/uL; Monocyte% 16.2 % (0-10); NRBC Flagged by Analyzer 0 % (0-5); Neutrophil # 2.48 X10^3/uL (2.7-7.7); Neutrophil % 58.9 % (47-70); Platelet Count 117 K/mm3 (150-450); RBC Distribution Width SD 59.3 fl (35.1-43.9); Red Blood Count 2.95 M/mm3 (4.6-6.2); White Blood Count 4.2 K/mm3 (4.4-11.0)
[2024-07-06 06:48] LABS: Bedside Glucose 195 mg/dL (74-106)
[2024-07-06 06:50] LABS: Anion Gap 6 (5-15); BUN 36 mg/dL (7-18); BUN/Creat Ratio 25.2 RATIO (10-20); Calcium,Total 8.2 mg/dL (8.5-10.1); Chloride 108 mmol/L (98-107); Creatinine, Serum 1.43 mg/dL (0.70-1.30); EST Glomerular Filtration Rate 50 mL/min (>60); Est Glom Filt Rate - Afr Amer 61 mL/min (>60); Glucose 206 mg/dL (74-106); Sodium Level 137 mmol/L (136-145)
--- NOTE | 2024-07-06 07:43 | PN.HOSP_ITS ---
Reason for Visit Reason for Visit: Diagnoses Acute posthemorrhagic anemia (06/29/24) Atherosclerotic heart disease of [place] coronary artery without angina pectoris (06/29/24) Other supraventricular tachycardia (06/29/24) Gastrointestinal hemorrhage, unspecified (06/29/24) Disorder of kidney and ureter, unspecified (06/29/24) Subjective Subjective Denies complaints. Objective Data Objective Data Vital Signs: Vital Signs Temp Pulse Resp BP Pulse Ox O2 Del Method O2 Flow Rate 36.2 C L 61 18 108/72 99 Room Air 2 07/06/24 03:21 07/06/24 03:21 07/06/24 03:21 07/06/24 03:21 07/06/24 03:21 07/06/24 04:57 06/30/24 21:55 Oxygen Flow Rate (L/min) 2 Oxygen Delivery Method Room Air Weight: 81 kg Body Mass Index (BMI) 25.6 Intake & Output: Intake and Output for Last 24 Hours 07/04/24 07/05/24 07/06/24 23:59 23:59 23:59 Intake Total 677.00 / 797.00 1440 / 1440 Output Total 650 / 860 1210 / 1210 200 / 200 Balance 27.00 / -63.00 230 / 230 -200 / -200 Lab / Micro Data 07/06/24 05:12 07/06/24 05:12 Labs: Laboratory Results - last 24 hr 07/03/24 07:44: Blood Type B NEGATIVE, Antibody Screen NEGATIVE, Crossmatch See Detail 07/05/24 08:58: Hgb 6.9 L, Hct 21.4 L 07/05/24 11:28: POC Glucose 241 H 07/05/24 16:19: POC Glucose 291 H 07/05/24 22:20: POC Glucose 215 H 07/06/24 05:12: WBC 4.2 L, RBC 2.95 L, Hgb 8.7 L, Hct 26.4 L, MCV 89.5, MCH 29.5, MCHC 33.0, RDW Std Deviation 59.3 H, RDW Coeff of Artemio 20.0 H, Plt Count 117 L, MPV 10.5, Immature Gran % (Auto) 0.700, Neut % (Auto) 58.9, Lymph % (Auto) 18.3 L, [place] % (Auto) 16.2 H, Eos % (Auto) 5.2 H, Baso % (Auto) 0.7, Absolute Neuts (auto) 2.5, Absolute Lymphs (auto) 0.77 L, Nucleated RBC % 0, Sodium 137, Potassium 4.0, Chloride 108 H, Carbon Dioxide 23.0, Anion Gap 6, BUN 36 H, Creatinine 1.43 H, Estim Creat Clear Calc 39.70, Est GFR (MDRD) Af Amer 61, Est GFR (MDRD) Non-Af 50 L, BUN/Creatinine Ratio 25.2 H, Glucose 206 H, H emoglobin A1c 6.0 H, Calcium 8.2 L 07/06/24 05:16: PT 16.8 H, INR 1.4, APTT 38.9 H 07/06/24 06:29: POC Glucose 195 H Micro: Microbiology 06/29/24 16:00 Stool Stool Occult Blood (TONA) - Final Occult Blood Positive Rhythm Strip Rhythm Strip: Sinus Rhythm Rate: 75 Ectopy: None Physical Exam Const alert and no apparent distress HEENT head/scalp atraumatic and moist oral mucous membranes Resp normal respiratory effort, no retractions, no use of accessory muscles and clear to auscultation bilaterally Cardio regular rate, regular rhythm, S1 normal heart sound and S2 normal heart sound GI normal to inspection, nondistended, normoactive bowel sounds, soft to palpation, non-tender and non-distended Neuro Sensorium / Orientation: awake, alert, oriented to person and oriented to place Assessment & Plan Assessment/Plan (1) Acute upper GI bleed: (2) ABLA (acute blood loss anemia): (3) Renal insufficiency: PLAN: Plan upper GI bleed * h/o PUD and varcies complicated by DAPT (now just clopidogrel) * PPI IV BID * GI took pt for EGD on 06/30 which showed grad III esophageal varices. 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 Hemostatic spray applied. * Repeat EGD 07/06: grade III esophageal varices, portal hypertensive gastropathy, single bleeding angiodysplastic lesion in the duodenum that was treated w heater probe and clipped. * Appreciate DrRachel Friend's repeat evaluation. Pt not a candidate for TIPS given poor performance status and his ongoing requirement for clopidogrel. Acute blood loss anemia * 2/2 GI bleed compounded by use of DAPT (again, now just clopidogrel) * Transfused 2 units PRBCs during the hospitalization CAD: * STEMI in February 2024. RIA x2 to mid and distal LAD at [facility]. (reviewed through [facility]) * continue clopidogrel, losartan and carvedilol * follow up with Dr. [place] as outpt. * Discussed with Dr. Underwood who feels it is okay to discontinue the aspirin but continue with clopidogrel for now. Cirrhosis * alpha-1 antitrypsin deficiency. No family history that he is aware of. * complicates care. * noted ascites * Will add midodrine Ascites * paracentesis cancelled by radiology because he is on clopidogrel. Unfortunately he cannot be taken off until February 2025. * Continue Spironolactone and furosemide. Uptitrate as BP and kidney function allow. Atrial tachycardia * back on carvedilol, dose increased * Discussed with Dr. Underwood who did not feel that it was actually a ventricular tachycardia but more of an atrial tachycardia. Debility * PT OT Chronic conditions: * Type 2 diabetes mellitus? Blood glucose 127 on admit. A1c 6.6%. Hold home metformin and glyburide. Will treat with sliding scale insulin with meals while inpatient. DVT prophylaxis: SCDs CODE STATUS: Full code 07/02: I had a long conversation with his . She explained how overwhelmed she was about just going to his doctors appointments. I recommended changing his CODE STATUS to DNR Comfort Care arrest. Being that she is so overwhelmed with these doctors appointments, his medical complexity, the issue is if he were to have cardiac arrest and survive and be on a ventilator he may not be able to come off very easily if at all which would lead her to have even more significant decisions to make such as withdrawing of care if that were necessary. Patient is too confused to make that decision at this time. She was not able to make a decision when I asked her. Disposition: TCU when stable. Hopefully in 1-2 more days. Charges/Coding Visit Charges Inpatient E&M: 20259 Subs Hosp L2
--- NOTE | 2024-07-06 09:19 | NURSING ---
charge nurse also monitoring telemetry at desk
[2024-07-06] MEDS: Midodrine HCl 5 MG Tablet 10 MG PO ×2 (09:26→17:20)
[2024-07-06] MEDS: Furosemide 20 MG Tablet PO (09:27)
[2024-07-06] MEDS: Spironolactone 50 MG Tablet PO (09:30)
[2024-07-06] MEDS: Carvedilol 12.5 MG Tablet PO ×2 (09:31→21:22)
[2024-07-06] MEDS: Clopidogrel Bisulfate 75 MG Tablet PO (09:32)
[2024-07-06] MEDS: 0.9% Saline Lock 10 ML Syringe IV ×2 (09:50→21:24)
[2024-07-06] MEDS: Pantoprazole Sodium 40 MG in 0.9% Normal Saline (100mL MB+) 100 ML 330 MG IV ×2 (09:50→21:22)
--- NOTE | 2024-07-06 12:06 | PRE.ANES_ITS ---
ASA Classification* ASA Classification ASA Classification: 3 Assessment & Plan Anesthesia* Anesthesia Assessment Anesthesia Assessment: Discussed sedation and/or anesthesia options, risks, benefits, and alternatives with patient/parents/legal guardian/POA. Questions invited. The patient/parents/legal guardian/POA seems to understand and agrees to proceed with anesthesia plan. Reviewed the physical assessment, medical history, allergy history and patient home medications list prior to surgery/procedure/anesthetic and documented any changes. Performed airway and anesthesia risk assessments. Anesthesia Type Anesthesia Type: MAC Anesthesia Focused Assessment* Temperature: 98.5 F Pulse Rate: 69 Blood Pressure: 105/68 Respiratory Rate: 17 Pulse Ox: 98 Oxygen Flow Rate (L/min): 2 Airway Assessment Mouth opens: >3 cm Mallampati Score: II Focused Labs Anesthesia Preop lab: CBC WBC 4.2 K/mm3 (4.4-11.0) L 07/06/24 05:12 RBC 2.95 M/mm3 (4.6-6.2) L 07/06/24 05:12 Hgb 8.7 g/dL (13.0-16.5) L 07/06/24 05:12 Hct 26.4 % (40-54) L 07/06/24 05:12 Plt Count 117 K/mm3 (150-450) L 07/06/24 05:12 CHEMISTRY Potassium 4.0 mmol/L (3.5-5.1) 07/06/24 05:12 Sodium 137 mmol/L (136-145) 07/06/24 05:12 Magnesium 1.3 mg/dL (1.6-2.6) L 07/05/24 05:27 BUN 36 mg/dL (7-18) H 07/06/24 05:12 Creatinine 1.43 mg/dL (0.70-1.30) H 07/06/24 05:12 Glucose 206 mg/dL (74-106) H 07/06/24 05:12 POC Glucose 195 mg/dL (74-106) H 07/06/24 06:29 TSH 1.080 uIU/mL (0.358-3.740) 07/02/24 04:25 COAG PT 16.8 SECONDS (11.7-14.9) H 07/06/24 05:16 Pre-Assessment Diagnosis/Proposed Procedure Planned Operative Procedure(s): Esophagogastroduodenoscopy. Anesthesia History Anesthesia History - radiological defense officer: Anesthesia History - radiological defense officer Hx Hospitalization Any Problems With Anesthesia No 07/06/24 01:02 Cholinesterase deficiency You/Your Family Experience fever (hyperthermia) with Relationship Recent Exposure to Contagious Disease Does patient have nerve No 07/06/24 01:02 stimulator Patient instructed to have device shut off --Does patient have Pacemaker or ICD? When Was Last Pacemaker Check QUESTION #4 FULL TEXT: You/Your Family Experience fever (hyperthermia) with Anesthesia Last Oral Intake Last Oral intake: Last Oral Intake NPO since 00:00 07/06/24 01:02 Meds taken in AM with sips of water? Meds patient instructed to take am of surgery PONV PONV - radiological defense officer: PONV - radiological defense officer Female HX of Motion Sickness HX of N/V After Surgery Non-Smoker Duration of Surgery greater than 60 minutes Number of Risk Factors PONV Score Height & Weight Height & Weight: Anesthesia: Height & Weight Height 5 ft 10 in 07/06/24 01:02 Weight: 81 kg 07/06/24 01:02 Body Mass Index (BMI) 25.6 07/06/24 01:02 Respiratory Assessment Respiratory Assessment - radiological defense officer: Respiratory Tract Infection Hx - radiological defense officer Hx Respiratory Tract Infection No 06/30/24 15:46 STOP Sleep Apnea STOP Sleep Apnea - radiological defense officer: STOP Sleep Apnea - radiological defense officer Hx Hypertension Yes: pt unable to answer 06/30/24 14:28 Hx Sleep Apnea No 06/30/24 18:45 CPAP BIPAP Do you snore loudly (louder No 06/29/24 19:37 than talking or can be heard Do you often feel tired/ No 06/29/24 19:37 fatigued/ sleepy during daytime? Has anyone observed you stop No 06/29/24 19:37 breathing during sleep? STOP Results Negative 06/29/24 19:37 QUESTION #5 FULL TEXT : Do you snore loudly (louder than talking or can be heard through closed doors)? Tobacco Use History Tobacco Use History - radiological defense officer: Tobacco Use History - radiological defense officer Tobacco Use Smoking Status Former smoker 06/29/24 19:37 Hx Tobacco Use No 06/29/24 19:37 Years Smoking Packs Smoked per Day Smoking Cessation Date was No - quit smoking greater 06/29/24 19:37 within the last 15 years than 15 years ago Hx Smoking Cessation Date Hx Smoking Cessation Counseling Hematologic Medial History Hematologic Hx - radiological defense officer: Hematologic Medical Hx - weatherization specialist Hx of Blood Transfusion Yes 06/29/24 19:37 Hx of Transfusion in last 3 Months Date of Last Transfusion (if within last 3 months) Ever experience any problems with transfusion(s)? Specify any problems Hx of Preganancy in last 3 Months Nurse Filling Out Transfusion LFORREST 06/29/24 19:37 & Questions: Date: 06/29/24 06/29/24 19:37 Time: 19:40 06/29/24 19:37 Patient unable to answer at Yes 06/29/24 19:37 this time (ie. confused, unrespo /Reproduction History /Reproductive History - radiological defense officer: /Reproductive Hx- radiological defense officer Hx Now No 07/06/24 01:02 Gestational Age (in weeks): EDC: Hx Hx Para Hx Section SAB No 07/06/24 01:02 Active Medications Active Medications: Current Medications Generic Name Dose Route Start Last Admin Trade Name Freq PRN Reason Stop Dose Admin Atorvastatin Calcium 40 mg 06/29/24 22:00 07/05/24 22:15 Atorvastatin Calcium 40 Mg Tablet PO 40 mg QHS VINCE Administration Carvedilol 12.5 mg 07/02/24 22:00 07/06/24 09:31 Carvedilol 12.5 Mg Tablet PO 12.5 mg BID VINCE Administration Protocol Clopidogrel Bisulfate 75 mg 06/30/24 10:00 07/06/24 09:32 Clopidogrel Bisulfate 75 Mg Tablet PO 75 mg DAILY VINCE Administration Furosemide 20 mg 06/30/24 14:55 07/06/24 09:27 Furosemide 20 Mg Tablet PO 20 mg DAILY VINCE Administration Protocol Glucagon 1 mg 06/29/24 18:41 Glucagon 1 Mg/Ml Syringe IM X1 PRN Hypoglycemia Protocol Dextrose 250 mls @ 0 mls/hr 06/29/24 18:41 06/30/24 00:26 Dextrose 10%-Water IV Infused .Q0M PRN Infusion HYPOGLYCEMIA Protocol As Directed Pantoprazole Sodium 40 mg/ 110 mls @ 330 mls/hr 06/29/24 22:00 07/06/24 10:10 Sodium Chloride IV Infused Q12 VINCE Infusion Sodium Chloride 100 mls @ 15 mls/hr 06/29/24 18:43 07/04/24 11:07 IV 0 mls/hr .Q6H40M PRN Infusion Saline Flush Insulin Human Lispro 0 unit 07/01/24 22:00 07/06/24 06:30 Insulin Lispro 100 Unit/Ml Insuln.Pen SC Not Given ACHS [facility] Protocol Melatonin 3 mg 06/29/24 18:41 07/01/24 21:54 Melatonin 3 Mg Tablet PO 3 mg QHS PRN PRN Administration INSOMNIA Midodrine 10 mg 07/02/24 17:00 07/06/24 09:26 Midodrine Hcl 5 Mg Tablet PO 10 mg TIDCM [facility] Administration Nutritional Formula (Lactose Free) 120 ml 07/03/24 12:00 07/06/24 08:28 Glucerna Shake 120 Ml Liquid PO Not Given TIDCM [facility] Ondansetron HCl 4 mg 06/29/24 18:41 Ondansetron 4 Mg/2 Ml Vial IV Q8H PRN PRN NAUSEA/VOMITING Sodium Chloride 10 - 40 ml 06/29/24 18:43 07/06/24 09:50 0.9% Saline Lock 10 Ml Syringe IV 10 ml UD PRN Administration SALINE FLUSH Spironolactone 50 mg 06/30/24 14:55 07/06/24 09:30 Spironolactone 50 Mg Tablet PO 50 mg DAILY [facility] Administration Protocol [facility] Medical History Iron deficiency anemia High cholesterol Diabetes mellitus, type II HTN (hypertension) Ulcer Home Medications ?Medication ?Instructions ?Recorded ?Last Taken ?Type aspirin 81 mg capsule 81 mg PO DAILY 06/29/24 Unknown History carvedilol 3.125 mg tablet 3.125 mg PO BID 06/29/24 Unknown History ciclopirox 8 % topical solution topical QWEEK 06/29/24 Unknown History clopidogrel 75 mg tablet 75 mg PO DAILY 06/29/24 Unknown History glyburide 5 mg tablet 5 mg PO BID 06/29/24 Unknown History losartan 25 mg tablet 12.5 mg PO DAILY 06/29/24 Unknown History metformin 1,000 mg tablet 1,000 mg PO BID 06/29/24 Unknown History pantoprazole 40 mg tablet,delayed 40 mg PO BID 06/29/24 Unknown History release rosuvastatin 20 mg tablet 20 mg PO DAILY 06/29/24 Unknown History Allergy/AdvReac Type Severity Reaction Status Date / Time oxycodone AdvReac CONFUSION Verified 06/29/24 14:09 tramadol AdvReac CONFUSION Verified 06/29/24 14:09 Surgical History Status post reverse arthroplasty of right shoulder S/P appendectomy Social History Smoking Status: Former smoker Review of Systems (Anesthesia) ROS Narrative System reviewed and no additional complaints, except as documented.
--- NOTE | 2024-07-06 12:43 | EX.PCM.PN.GI ---
Subjective Subjective The patient did have some black stools and his hemoglobin went down to 6.9. Objective Data Objective Data Vital Signs: Vital Signs Temp Pulse Resp BP Pulse Ox O2 Del Method O2 Flow Rate 98.5 F 69 17 105/68 98 Room Air 2 07/06/24 12:06 07/06/24 12:06 07/06/24 12:06 07/06/24 12:06 07/06/24 12:06 07/06/24 10:00 07/06/24 12:06 Oxygen Flow Rate (L/min) 2 Oxygen Delivery Method Room Air Weight: 178 lb 9.191 oz Body Mass Index (BMI) 25.6 Intake & Output: Intake and Output for Last 24 Hours 07/04/24 07/05/24 07/06/24 23:59 23:59 23:59 Intake Total 677.00 / 797.00 1440 / 1440 110 / 110 Output Total 650 / 860 1210 / 1210 200 / 200 Balance 27.00 / -63.00 230 / 230 -90 / -90 Lab / Micro Data 07/06/24 05:12 07/06/24 05:12 Labs: Laboratory Results - last 24 hr 07/03/24 07:44: Blood Type B NEGATIVE, Antibody Screen NEGATIVE, Crossmatch See Detail 07/05/24 16:19: POC Glucose 291 H 07/05/24 22:20: POC Glucose 215 H 07/06/24 05:12: WBC 4.2 L, RBC 2.95 L, Hgb 8.7 L, Hct 26.4 L, MCV 89.5, MCH 29.5, MCHC 33.0, RDW Std Deviation 59.3 H, RDW Coeff of Artemio 20.0 H, Plt Count 117 L, MPV 10.5, Immature Gran % (Auto) 0.700, Neut % (Auto) 58.9, Lymph % (Auto) 18.3 L, [place] % (Auto) 16.2 H, Eos % (Auto) 5.2 H, Baso % (Auto) 0.7, Absolute Neuts (auto) 2.5, Absolute Lymphs (auto) 0.77 L, Nucleated RBC % 0, Sodium 137, Potassium 4.0, Chloride 108 H, Carbon Dioxide 23.0, Anion Gap 6, BUN 36 H, Creatinine 1.43 H, Estim Creat Clear Calc 39.70, Est GFR (MDRD) Af Amer 61, Est GFR (MDRD) Non-Af 50 L, BUN/Creatinine Ratio 25.2 H, Glucose 206 H, Hemoglobin A1c 6.0 H, Calcium 8.2 L 07/06/24 05:16: PT 16.8 H, INR 1.4, APTT 38.9 H 07/06/24 06:29: POC Glucose 195 H Micro: Microbiology 06/29/24 16:00 Stool Stool Occult Blood (TONA) - Final Occult Blood Positive Rhythm Strip Rhythm Strip: Sinus Rhythm Rate: 75 Ectopy: None Physical Exam Const alert and no apparent distress HEENT head/scalp atraumatic and moist oral mucous membranes Resp normal respiratory effort, no retractions, no use of accessory muscles and clear to auscultation bilaterally Cardio regular rate, regular rhythm, S1 normal heart sound and S2 normal heart sound GI normal to inspection, nondistended, normoactive bowel sounds, soft to palpation and non-tender GI Narrative: distended. soft. Extremity Extremity Narrative: edema Neuro Sensorium / Orientation: awake and alert Assessment & Plan Assessment/Plan (1) Acute upper GI bleed: (2) ABLA (acute blood loss anemia): (3) Renal insufficiency: PLAN: Plan Patient is an 84-year-old male who presented [facility] ED on 06/29/2024 with dark stools and worsening weakness. 1. Concern for recurrent upper GI bleed with acute on chronic blood loss anemia ? Hemoglobin 8.5 on admit, slightly down from last hemoglobin 9.5 on 05/31. Had upper GI bleed in December and EGD showed nonbleeding gastric ulcers. Repeat EGD on 02/17 showed ulcers with varices, portal hypertensive gastropathy and gastritis. Patient has had to remain on dual antiplatelet therapy given recent history of STEMI. I was consulted and he underwent an upper endoscopy: Findings: Grade III varices were found in the mid esophagus and in the distal esophagus. They were 24 mm in largest diameter. Moderate portal hypertensive gastropathy was found in the entire examined stomach. A few 9 mm angiodysplastic lesions with bleeding were found in the third portion of the duodenum. To stop active bleeding, hemostatic spray was deployed. Several sprays were applied. There was no bleeding at the end of the procedure. Impression: - Grade III esophageal varices. - Portal hypertensive gastropathy. 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 Hemostatic spray applied. 2. Recent history of STEMI with stenting, history of CAD, hypertension, hyperlipidemia ? Hospitalized at [facility] with STEMI in February. Had RIA x 2 placed to the mid and distal LAD. Recommendation per cardiology is that he can be on Plavix monotherapy. 3. Concern for cirrhosis with ascites, concern for hepatic encephalopathy ? Follows with both [facility] and GI, see HPI for further details. Had abdominal distention with fluid wave noted on exam on admit. Abdominal ultrasound showed hepatic cirrhosis with ascites and diffuse fatty infiltration of the liver with no focal lesions identified. MELD score of 18 on admit. Radiology consulted for diagnostic and therapeutic paracentesis. He could not get diagnostic or therapeutic paracentesis due to the fact that he cannot come off of Plavix. Ammonia level was only mildly elevated. -He has a very poor performance status and a very poor prognosis and regarding the complications from cirrhosis. He has had 2 severe GI bleeds likely from the small bowel at 2 different institutions requiring hospitalization. I had a long talk with the patient's explaining that the best thing we can recommend is beta-kwame therapy for his varices in his esophagus and symptomatic treatment of angiodysplastic lesions in the small bowel if he bleeds. He is not a candidate for TIPS procedure to relieve his portal hypertension leading to angiodysplasia and varices to cause recurrent GI bleeding due to the fact that he cannot come off of Plavix to get a TIPS procedure. That would be the ultimate treatment for him and regarding a good prognosis. Complication from that does include worsening encephalopathy however it would be his best chance at not having any recurrent GI bleeding due to decompression of his liver with a TIPS procedure. -Agree with midodrine 3 times a day to decrease ascites and continue beta-kwame therapy for varices. Recommend Xifaxan 550 mg twice a day and lactulose 30 mg twice a day. If his kidneys can handle a small dose of Lasix and Aldactone that would help prevent worsening ascites. I will discuss that with cardiology and nephrology first prior to starting those medicines. -Patient will have repeat upper endoscopy today because his hemoglobin continues to drop. Charges/Coding Visit Charges Inpatient E&M: 16079 Subs Hosp L3
--- NOTE | 2024-07-06 13:15 | OP.EGD_ITS ---
Patient Name: Kishan Dominguez Procedure Date: 07/06/2024 12:41 PM Date of : 1940 Age: 84 Procedure: Upper GI endoscopy Indications: Iron deficiency anemia, Active gastrointestinal bleeding, Recent gastrointestinal bleeding Providers: Ignacio Mcgee DO Referring MD: Santino Cao Medicines: Monitored Anesthesia Care Patient Profile: This is an 84 year old male. Refer to note in patient chart for documentation of history and physical. Patient has symptoms. Complications: No immediate complications. Procedure: Pre-Anesthesia Assessment: - Prior to the procedure, a History and Physical was performed, and patient medications and allergies were reviewed. The patient is competent. The risks and benefits of the procedure and the sedation options and risks were discussed with the patient. All questions were answered and informed consent was obtained. Patient identification and proposed procedure were verified by the physician in the pre-procedure area. Mental Status Examination: alert and oriented. Airway Examination: normal oropharyngeal airway and neck mobility. Respiratory Examination: clear to auscultation. CV Examination: normal. Prophylactic Antibiotics: The patient does not require prophylactic antibiotics. Prior Anticoagulants: The patient has taken no anticoagulant or antiplatelet agents except for NSAID medication. ASA Grade Assessment: IV - A patient with severe systemic disease that is a constant threat to life. After reviewing the risks and benefits, the patient was deemed in satisfactory condition to undergo the procedure. The anesthesia plan was to use monitored anesthesia care (MAC). Immediately prior to administration of medications, the patient was re-assessed for adequacy to receive sedatives. The heart rate, respiratory rate, oxygen saturations, blood pressure, adequacy of pulmonary ventilation, and response to care were monitored throughout the procedure. The physical status of the patient was re-assessed after the procedure. After obtaining informed consent, the endoscope was passed under direct vision. Throughout the procedure, the patient's blood pressure, pulse, and oxygen saturations were monitored continuously. The colonoscope was introduced through the mouth, and advanced to the fourth part of the duodenum. Small bowel enteroscopy was deemed necessary. The upper GI endoscopy was accomplished without difficulty. The patient tolerated the procedure well. Scope In: 12:57:19 PM Scope Out: 1:09:32 PM Total Procedure Duration Time 0 hours 12 minutes 13 seconds Findings: Grade III varices were found in the entire esophagus. They were 8 mm in largest diameter. Severe portal hypertensive gastropathy was found in the entire examined stomach. A single 19 mm angiodysplastic lesion with bleeding was found in the fourth portion of the duodenum. Coagulation for hemostasis using heater probe was successful. For location marking, one hemostatic clip was successfully placed. Clip collar tacker: [employer] There was no bleeding at the end of the procedure. Impression: - Grade III esophageal varices. - Portal hypertensive gastropathy. - A single bleeding angiodysplastic lesion in the duodenum. Treated with a heater probe. Clip was placed. Clip collar tacker: [employer] - No specimens collected. Recommendation: - [facility]. - Full liquid diet today. - Continue present medications. Procedure Code(s): --- Professional --- 41583, Small intestinal endoscopy, enteroscopy beyond second portion of duodenum, not including ileum; with control of bleeding (eg, injection, bipolar cautery, unipolar cautery, laser, heater probe, stapler, plasma clinical project leader) 17092, Unlisted procedure, small intestine CPT copyright 2021 [employer]. All rights reserved. The codes documented in this report are preliminary and upon admeasurer review may be revised to meet current compliance requirements. Ignacio Mcgee DO 07/06/2024 1:14:28 PM This report has been signed electronically. Number of Addenda: 0 Note Initiated On: 07/06/2024 12:41 PM
--- NOTE | 2024-07-06 13:15 | OP.CCLET_ITS ---
07/06/2024 Peng Elder Md Re : Upper GI endoscopy procedure for Kishan Alvarezleora Elder This procedure was performed on Saturday, July 06, 2024. My impressions and recommendations are as follows: Impressions : - Grade III esophageal varices. - Portal hypertensive gastropathy. - A single bleeding angiodysplastic lesion in the duodenum. Treated with a heater probe. Clip was placed. Clip retail sales teammate: N(i)². - No specimens collected. Recommendations : - [facility]. - Full liquid diet today. - Continue present medications. My findings are described in the full procedure note, which is enclosed. If I can be of further assistance, please feel free to contact me at . Sincerely, Ignacio Mcgee, 07/06/2024 1:14:28 PM This report has been signed electronically.
--- NOTE | 2024-07-06 13:28 | PCM.POST.ANE ---
Anesthesia: Postop Eval I Current Vital Signs Temperature: 97.6 F Pulse Rate: 74 Blood Pressure: 87/59 Respiratory Rate: 16 Pulse Ox: 94 Oxygen Delivery Method: Room Air Assessment Airway patent: Yes Spontaneous unlabored respirations: Yes Mental status: Awake and Calm nausea: No Vomiting: No Anesthesia Complication: No Fluid Hydration Crystalloid volume administer (ml): 30 Total IV fluid infused: 30 Progress Note Anesthesia document: Postop Eval 1 completed: Yes
--- NOTE | 2024-07-06 15:35 | CASEMGMT ---
SW spoke with patient's and let her know that [facility] can take patient pending bed availability. Patient's said that patient is not going to be happy, but she is not able to care for him right now. Daniela BLACKMAN
[2024-07-06] MEDS: Insulin Lispro 100 UNIT/ML INSULN.PEN SC ×2 (17:21→21:21)
[2024-07-06 17:26] LABS: Bedside Glucose 248 mg/dL (74-106)
[2024-07-06] MEDS: Atorvastatin Calcium 40 MG Tablet PO (21:22)
[2024-07-06 21:45] LABS: Bedside Glucose 327 mg/dL (74-106)
[2024-07-06] MEDS: MELATONIN 3 MG TABLET PO (22:28)
--- NOTE | 2024-07-06 23:38 | PCM.POSTANE2 ---
Anesthesia Postop Eval I Sum Postop Eval Completion status Anesthesia document: Postop Eval 1 completed: Yes Anesthesia Postop Eval I Summary Anesthesia Postop Eval I Summary: Anesthesia Postop Eval I: Assessment Summary Airway patent Yes 07/06/24 13:29 [email or web address] Spontaneous unlabored Yes 07/06/24 13:29 [email or web address] respirations Mental status Awake,Calm 07/06/24 13:29 [email or web address] nausea No 07/06/24 13:29 [email or web address] Vomiting No 07/06/24 13:29 [email or web address] Anesthesia Postop Eval I: Fluid Summary Crystalloid volume administer 30 07/06/24 13:29 [email or web address] (ml) Colloids volume administered ( ml) Blood Product volume administered (ml) Total IV fluid infused 30 07/06/24 13:29 [email or web address] Anesthesia Postop Eval I: Summary Notes Anesthesia Complication No 07/06/24 13:29 [email or web address] Anesthesia Complication Comment: Post-operative progress note Anesthesia: Postop Eval II Evaluation Mental status: Awake and Calm Pain Level: 0 nausea: No Vomiting: No Complications Anesthesia Complication: No
[2024-07-07 03:28] VITALS: BP 110/87; PULSE 81; RESP 18; TEMP 36.1; O2SAT 95
[2024-07-07 06:02] LABS: Absolute Lymphocyte Count 0.71 X10^3/uL (0.83-4.51); Basophil# 0.05 X10^3/uL; Basophil% 0.9 % (0-1); Eosinophil# 0.18 X10^3/uL; Eosinophils% 3.1 % (0-5); Hematocrit 27.4 % (40-54); Hemoglobin 8.9 g/dL (13.0-16.5); Lymphocyte # 0.71 X10^3/ul (0.83-4.51); Lymphocyte % 12.1 % (19-41); Mean Corp Hgb Conc 32.5 g/dL (32-36); Mean Corpuscular Hgb 29.5 pg (27.0-32.0); Mean Corpuscular Volume 90.7 fL (80-94); Mean Platelet Vol. 10.3 fl (6.2-12.0); Monocyte# 0.87 X10^3/uL; Monocyte% 14.9 % (0-10); NRBC Flagged by Analyzer 0 % (0-5); Neutrophil # 3.99 X10^3/uL (2.7-7.7); Neutrophil % 68.1 % (47-70); POSITIVE MORPHOLOGY YES; Platelet Count 115 K/mm3 (150-450); RBC Distribution Width CV 20.3 % (11.6-14.6); RBC Distribution Width SD 62.9 fl (35.1-43.9); Red Blood Count 3.02 M/mm3 (4.6-6.2); White Blood Count 5.9 K/mm3 (4.4-11.0)
[2024-07-07] MEDS: Insulin Lispro 100 UNIT/ML INSULN.PEN SC ×3 (06:16→16:42)
[2024-07-07 06:22] LABS: Differential Indicated SCAN CRITERIA MET
[2024-07-07 06:45] LABS: Anion Gap 4 (5-15); BUN 32 mg/dL (7-18); BUN/Creat Ratio 20.9 RATIO (10-20); Calcium,Total 8.3 mg/dL (8.5-10.1); Chloride 107 mmol/L (98-107); Creatinine, Serum 1.53 mg/dL (0.70-1.30); EST Glomerular Filtration Rate 46 mL/min (>60); Est Glom Filt Rate - Afr Amer 56 mL/min (>60); Estimated Creatinine Clearance 37.11 ml/min; Glucose 231 mg/dL (74-106); Potassium 4.1 mmol/L (3.5-5.1); Sodium Level 134 mmol/L (136-145)
[2024-07-07 06:55] LABS: Anisocytosis 2+; Macrocytosis 2+; Ovalocyte 1+; Platelet Estimate SLT DEC (ADEQ); Polychromasia 1+
[2024-07-07 06:56] LABS: Bedside Glucose 220 mg/dL (74-106)
--- NOTE | 2024-07-07 07:05 | ANES.CONFIRM ---
Anesthesia: Confirm Documents Multiple Procedures on Account (2) Confirmed Documents: Yes
[2024-07-07 09:00] VITALS: BP 100/55; PULSE 72; RESP 16; TEMP 36.6; O2SAT 96
[2024-07-07] MEDS: Spironolactone 50 MG Tablet PO (09:26)
[2024-07-07] MEDS: Clopidogrel Bisulfate 75 MG Tablet PO (09:26)
[2024-07-07] MEDS: Midodrine HCl 5 MG Tablet 10 MG PO ×3 (09:26→16:38)
[2024-07-07] MEDS: Carvedilol 12.5 MG Tablet PO ×2 (09:26→20:32)
[2024-07-07] MEDS: Furosemide 20 MG Tablet PO (09:26)
[2024-07-07 09:30] VITALS: BP 100/55; PULSE 72; RESP 16; TEMP 36.6; O2SAT 96
[2024-07-07] MEDS: Pantoprazole Sodium 40 MG in 0.9% Normal Saline (100mL MB+) 100 ML 330 MG IV (09:37)
--- NOTE | 2024-07-07 12:16 | CASEMGMT ---
Addendum entered by Roberta Osborne 07/07/24 15:42: [facility] now states that they will have a bed available today and pt can admit. Physician notified and pt is ready for dc to TCU. TANMAY met with pt and and updated that pt will indeed go to TCU today. Pt understanding and agreeable. DC orders faxed to TCU. RN updated. Disposition: TCU, skilled level of care [facility] Original Note: [facility] is able to accept pt however they do not have a bed available today, but will tomorrow. Physician notified. TANMAY met with pt and and updated pts who is agreeable to dc plan. Plan: TCU, Thursday admission [facility]
[2024-07-07 12:18] LABS: Bedside Glucose 265 mg/dL (74-106)
--- NOTE | 2024-07-07 15:06 | PCM.TXEXTCAR ---
Diet Diet Order/Speech Therapy: 07/06/24 15:13 Diet: Full Liquid Dietary Modifications:: No Added Salt Type of Dietary Supplement:: Glucerna Shake Diet Comments: 120cc with meals Routine Orders/Code Status Suppository Frequency: Daily PRN Routine Lab Work: CBC (3 days) and BMP (3 days) Code Status: Full Code DC O2, CPAP, BIPAP needs Home O2 Discharge instructions: No Suggestions for Active Care Change Position every (hours): 2 Hours to sit in a chair: 2 Times a day to sit in chair: 3 Therapies Weight Bearing: Full weight bearing Physical Therapy: Eval and Treat Occupational Therapy: Eval and Treat Speech Therapy: Eval and Treat Problem/Diagnosis (1) Acute upper GI bleed: Status: Acute Code(s): K92.2 - Gastrointestinal hemorrhage, unspecified (2) ABLA (acute blood loss anemia): Status: Acute Code(s): D62 - Acute posthemorrhagic anemia (3) Renal insufficiency: Status: Acute Code(s): N28.9 - Disorder of kidney and ureter, unspecified Allergies/Procedures Done in Hospital Allergies oxycodone Adverse Reaction (Verified 06/29/24 14:09) CONFUSION tramadol Adverse Reaction (Verified 06/29/24 14:09) CONFUSION Procedures: EGD (x2) and - (Abdominal ultrasound) Type of Care/Length of Stay Estimated LOS: Convalescent Care Less Than 30 days Type of Care Needed: Skilled Rehab Potential: Fair Prognosis: Fair Additional Orders/Day of Discharge Day of Discharge: 07/07/24 Dietary and Speech Recommendations Dietitian Recommendations/Changes: Recommend advanced diet as tolerated to liberal regular, no added salt diet to increase PO intake. Continue 120ml glucerna shake TID with meals. If PO continues to be poor, recommend nutrition support. Will monitor weight, as available. Reviewed and approved by Milly Armendariz, REUBEN, LD. Follow Up Care Please follow up with your Primary Care Physician in: 1 week after TCU Discharge Please Follow Up With: Ignacio Mcgee DO When: 1 week Discharge Plan Admission Admit Date/Time: 06/29/24 18:06 Attending Provider: Amanda Werner Primary Care Provider: Peng Elder Consulting Providers: Lenin Willingham; Henny Underwood; Frank Posadas Discharge Orders/Prescriptions Prescriptions: No Action glyburide 5 mg tablet 5 mg PO BID clopidogrel 75 mg tablet 75 mg PO DAILY metformin 1,000 mg tablet 1,000 mg PO BID aspirin 81 mg capsule 81 mg PO DAILY carvedilol 3.125 mg tablet 3.125 mg PO BID ciclopirox 8 % solution topical QWEEK pantoprazole 40 mg tablet,delayed release (DR/EC) 40 mg PO BID losartan 25 mg tablet 12.5 mg PO DAILY rosuvastatin 20 mg tablet 20 mg PO DAILY Referrals / Follow Up: Peng Elder MD [Primary Care Provider] -
--- NOTE | 2024-07-07 15:17 | PCM.DC.SUM ---
Providers Date of Admission: 06/29/24 Primary Care Physician: Dr. Peng Elder MD Consultations 06/29/24 18:17 Consult: Gastroenterology Routine Consulting Provider: [facility] Reason for Consult: upper GI bleed EMERGENT Consult: No MD Notified: Yes Date Notified: 06/30/24 Time Notified: 07:57 Method of Notification: Text 07/02/24 06:36 Consult: Cardiology Routine Consulting Provider: Henny Underwood Reason for Consult: Tachycardia, ? VT EMERGENT Consult: No MD Notified: Yes Date Notified: 07/02/24 Time Notified: 06:36 Method of Notification: Text Reason For Visit: UPPER GI BLEED W/ MILD ABLA Diagnosis Discharge Diagnosis (1) Acute upper GI bleed: Status: Acute Code(s): K92.2 - Gastrointestinal hemorrhage, unspecified (2) ABLA (acute blood loss anemia): Status: Acute Code(s): D62 - Acute posthemorrhagic anemia (3) Renal insufficiency: Status: Acute Code(s): N28.9 - Disorder of kidney and ureter, unspecified Medications at Discharge Home Medications ciclopirox 8 % topical solution topical QWEEK 06/29/24 clopidogrel 75 mg tablet 75 mg PO DAILY 06/29/24 glyburide 5 mg tablet 5 mg PO BID 06/29/24 pantoprazole 40 mg tablet,delayed release 40 mg PO BID 06/29/24 rosuvastatin 20 mg tablet 20 mg PO DAILY 06/29/24 carvedilol 12.5 mg tablet 12.5 mg PO BID #0 tabs 07/07/24 furosemide 20 mg tablet 20 mg PO DAILY #0 tabs 07/07/24 insulin glargine 100 unit/mL subcutaneous solution (Lantus U-100 Insulin) 10 unit (0.1 mL) subcut QPM #10 mL 07/07/24 insulin lispro 100 unit/mL subcutaneous pen (Humalog KwikPen (U-100) Insulin) See Protocol subcut ACHS #0 mL 07/07/24 melatonin 3 mg tablet 3 mg PO QHS PRN PRN Insomnia #0 tabs 07/07/24 midodrine 5 mg tablet 10 mg (2 x 5 mg) PO TIDCM #0 tabs 07/07/24 rifaximin 550 mg tablet (Xifaxan) 550 mg PO BID #0 tabs 07/07/24 spironolactone 50 mg tablet 50 mg PO DAILY #0 tabs 07/07/24 Hospital Course Operations None Procedures EGD (X 2) and - Summary of Care Provided Minutes Spent on Discharge: 41 Hospital Course: Mr. Dominguez is an 84-year-old male who presented to the emergency department at [facility] on 06/29/2024 with a chief complaint of dark stools and worsening weakness. Patient has a complicated past medical history. His has noted that for about a week he has had intermittent stools that are darker than typical for him. He is on dual antiplatelet therapy due to the stent that was placed in February 2024 due to a STEMI. RIA x 2 was placed to the mid and distal LAD at that time. He had been on Brilinta and aspirin post PCI. He also has a known history of cirrhosis. Recently his ARB and SLGT2 inhibitor were discontinued due to hypotension. On presentation he appeared to be fatigued but interacted appropriately. He did admit to having some memory issues and indicated this frustrated him. He complained that his belly felt somewhat distended and complained of some lower extremity swelling that has been ongoing. Vital signs on presentation showed a temperature of 97.8, respiratory rate 16, heart rate 76, blood pressure 105/65 and a pulse ox of 99% on room air. CBC on presentation showed a hemoglobin of 8.5 that dropped to a nicci of 6.2 on 09/03/2023 for which she was transfused. He corrected appropriately but then hemoglobin dropped back down to 6 9 on 07/05/2024 and he was transfused yet again. Coags on admission were slightly elevated related to his liver disease. Chemistry panel showed relatively stable CKD with an elevated BUN to creatinine ratio, serum bicarb of 18. Iron studies were were mixed picture and not entirely consistent with iron deficiency anemia so I suspect there is a component of anemia of chronic disease as well. He did have a slight troponin bump with his anemia for which cardiology thought was related to type II NSTEMI or demand ischemia related to his anemia and no further workup was required. Given his recent stent placement he was maintained on his aspirin and Plavix, placed on IV Protonix and admitted to the telemetry floor with a consultation to gastroenterology. Dr. Mcgee evaluated the patient and he was taken for EGD on 06/30/2024 at which time he was found to have grade 3 nonbleeding varices in the esophagus at the mid esophageal and distal esophageal level, moderate portal hypertensive gastropathy in the entire stomach and several 9 mm angiodysplastic lesions with bleeding in the third portion of the duodenum. Hemostatic spray was deployed several times with resolution of bleeding at the end of the procedure. Paracentesis was ordered however had to be discontinued due to the patient being on Plavix. This was at the request of interventional radiology. Cardiology was consulted due to atrial tachycardia that was noted to be supraventricular in origin and home carvedilol was reinitiated per discussion with cardiology. Cardiology also indicated that based on his conversation with regards to dual antiplatelet therapy with the family it was reasonable to stop aspirin and continue Plavix. Family voiced understanding of risk and the patient was asked to follow-up with cardiology as an outpatient. He was maintained on Plavix with no further signs of bleeding. He did require 2 transfusions. Given the drop of his hemoglobin on 07/05/2024 a repeat EGD was done on 07/06/2024 which redemonstrated his grade 3 esophageal varices, portal hypertensive gastropathy and he was found to have a new single bleeding angiodysplastic in the duodenum which was treated. Heater probe and clip placement was utilized at this time. Hemoglobin after his transfusion on 07/05/2024 was 8.7 on 07/06/2024 and his follow-up hemoglobin on 07/07/2024 was 8.9 indicating stability. He was evaluated by physical Occupational Therapy and they felt he would benefit from ongoing rehab at discharge. He was excepted to the transitional care unit and deemed stable for discharge on 07/07/2024. He will continue Protonix 40 mg p.o. twice daily. We started rifaximin for his cirrhosis, started midodrine and I did discontinue his metformin due to his CKD. We started insulin 10 units and this will need to be monitored closely in conjunction with his glyburide. May be able to discontinue glyburide completely depending on his response with regards to his blood sugar control. Hemoglobin A1c was obtained on the however this was after he was given blood. He was found to be 6.0. This is likely fairly inaccurate with his transfusion during his hospital stay in addition to his chronic anemia so I suspect his actual hemoglobin A1c is higher than this. He will need to follow-up with Dr. Mcgee in a week. I recommend a repeat CBC and BMP be done within the next 3 to 5 days. Patient was discharged in stable condition to the transitional care unit on 07/07/2024. 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 Acute on chronic anemia CKD stage IV DM-2 Hypomagnesemia-replaced Chronic thrombocytopenia CAD status post stent placement February 2024 Demand ischemia secondary to anemia Chronic HFrEF History of essential hypertension Esophageal varices Portal hypertensive gastropathy GERD Hyperlipidemia Suspected mild cognitive impairment Atrial tachycardia Ascites Physical Exam Const alert, no apparent distress and average body habitus; Negative for no limitations or healthy appearing Constitutional Narrative: Mildly confused, elderly, white male, sitting up in bed, family and at bedside, appears comfortable, nontoxic General Appearance: cooperative, comfortable, well kempt and well developed Orientation / Consciousness: awake and oriented to person HEENT normocephalic, head/scalp atraumatic, hearing grossly normal bilaterally and moist oral mucous membranes HEENT Narrative: Mallampati 2-3, no thrush Eyes EOMs intact bilaterally Eyes Narrative: Conjunctival pallor bilaterally, no scleral icterus Neck no lymphadenopathy and supple Neck Narrative: Trachea midline Resp normal respiratory effort, no retractions, no use of accessory muscles and clear to auscultation bilaterally Auscultation: Negative for rales, rhonchi or wheezes Cardio regular rate, regular rhythm, S1 normal heart sound, S2 normal heart sound, no murmurs, no rub, no gallops and no clicks GI soft to palpation and non-tender GI Narrative: Abdomen is slightly distended with slight fluid wave, bowel sounds are normal Extremity Extremity Narrative: 2+ bilateral lower extremity pitting edema, no cyanosis or clubbing Neuro oriented x3, moves all extremities and no focal motor deficits Neuro Narrative: Marked generalized weakness noted Speech: speech normal Psych affect normal Psych Narrative: Mildly confused but interacts appropriately, pleasant and jovial at times Weight / BMI Weight Weight: 81 kg Body Mass Index (BMI) 25.6 ABG / Lab / Microbiology Data 07/07/24 05:35 07/07/24 05:35 Laboratory: Laboratory Results - last 24 hr 07/06/24 17:04: POC Glucose 248 H 07/06/24 21:21: POC Glucose 327 H 07/07/24 05:35: WBC 5.9, RBC 3.02 L, Hgb 8.9 L, Hct 27.4 L, MCV 90.7, MCH 29.5, MCHC 32.5, RDW Std Deviation 62.9 H, RDW Coeff of Artemio 20.3 H, Plt Count 115 L, MPV 10.3, Immature Gran % (Auto) 0.900, Neut % (Auto) 68.1, Lymph % (Auto) 12.1 L, Radford % (Auto) 14.9 H, Eos % (Auto) 3.1, Baso % (Auto) 0.9, Absolute Neuts (auto) 4.0, Absolute Lymphs (auto) 0.71 L, Nucleated RBC % 0, Platelet Estimate SLT DEC, Polychromasia 1+, Anisocytosis 2+, Macrocytosis 2+, Ovalocytes 1+, Sodium 134 L, Potassium 4.1, Chloride 107, Carbon Dioxide 23.0, Anion Gap 4 L, BUN 32 H, Creatinine 1.53 H, Estim Creat Clear Calc 37.11, Est GFR (MDRD) Af Amer 56 L, Est GFR (MDRD) Non-Af 46 L, BUN/Creatinine Ratio 20.9 H, Glucose 231 H, Calcium 8.3 L 07/07/24 06:15: POC Glucose 220 H 07/07/24 11:56: POC Glucose 265 H Microbiology: Microbiology 06/29/24 16:00 Stool Stool Occult Blood (TONA) - Final Occult Blood Positive D/C Instructions Discharge Diet: Low fat / Low cholesterol DC O2, CPAP, BIPAP Needs Home O2 Discharge instructions: No Please Follow Up With: Ignacio Mcgee, DO Meaningful Use Info Meaningful Use Meaningful Use Diagnoses (Choose all that apply): None applicable Ischemic Stroke Statin Dosing Therapy Reference: STATIN DOSE THERAPY REFERENCE: * Patients > 75 years receive moderate or high dose statin therapy. * Patients 75 years or YOUNGER should receive HIGH intensity statin dose unless contraindicated. You will be required to document reason for non-treatment if statin daily dose does not meet guidelines. HIGH DOSE STATIN THERAPY DAILY Atorvastatin > than or = to 40 mg Rosuvastatin > than or = to 20 mg Amlodipine + Atorvastatin > than or = to 2.5/40 mg Ezetimibe + Simvastatin 10/80 mg Simvastatin 80mg Discharge Plan Admission Admit Date/Time: 06/29/24 18:06 Primary Reason for Your Visit: Weakness/melena Attending Provider: Amanda Werner Primary Care Provider: Peng Elder Consulting Providers: Lenin Willingham; Henny Underwood; Frank Posadas Discharge Orders/Prescriptions Prescriptions: New carvedilol 12.5 mg Tablet 12.5 mg PO BID Qty: 0 0RF midodrine 5 mg Tablet 10 mg PO TIDCM Qty: 0 0RF melatonin 3 mg Tablet 3 mg PO QHS PRN PRN (Reason: Insomnia) Qty: 0 0RF furosemide 20 mg Tablet 20 mg PO DAILY Qty: 0 0RF spironolactone 50 mg Tablet 50 mg PO DAILY Qty: 0 0RF insulin lispro [Humalog KwikPen Insulin] 100 unit/mL Insulin Pen See Protocol subcut ACHS Qty: 0 0RF Protocol: 5. Sliding Scale Insulin High Dosing Condition: 150-209 mg/dl = 3 units Condition: 210-259 mg/dl = 6 units Condition: 260-324 mg/dl = 9 units Condition: 325-374 mg/dl = 12 units Condition: 375-409 mg/dl = 14 units Condition: 410-449 mg/dl = 16 units Condition: Greater than 449 call physician Protocol Text: Suggested for: - Patients on Total Daily Insulin Dose of 81-120 units - Very insulin resistant patients HIGH DOSING ALGORITHM Xifaxan 550 mg Tablet 550 mg PO BID Qty: 0 0RF insulin glargine [Lantus U-100 Insulin] 100 unit/mL solution 10 unit subcut QPM Qty: 10 0RF Continued glyburide 5 mg tablet 5 mg PO BID clopidogrel 75 mg tablet 75 mg PO DAILY ciclopirox 8 % solution topical QWEEK pantoprazole 40 mg tablet,delayed release (DR/EC) 40 mg PO BID rosuvastatin 20 mg tablet 20 mg PO DAILY Discontinued metformin 1,000 mg tablet 1,000 mg PO BID aspirin 81 mg capsule 81 mg PO DAILY carvedilol 3.125 mg tablet 3.125 mg PO BID losartan 25 mg tablet 12.5 mg PO DAILY Referrals / Follow Up: Peng Elder MD [Primary Care Provider] - See Referral Note (1 week after discharge from rehab) Disposition Disposition (needs filled in before D/C Order can be placed): Long-Term Facility Charges/Coding Visit Charges Inpatient E&M: 94639 SNF Disch >30 Min
[2024-07-07 15:30] VITALS: BP 100/60; PULSE 60; PULSE 72; RESP 16; RESP 17; TEMP 36.6; TEMP 36.8; O2SAT 99
--- NOTE | 2024-07-07 16:05 | NURSING ---
Report given to Gianna on TCU with all questions asked. IV left in per Gianna's request
[2024-07-07 17:04] LABS: Bedside Glucose 247 mg/dL (74-106)
--- NOTE | 2024-07-07 17:15 | PN.GI_ITS ---
Subjective Subjective Patient underwent upper endoscopy and was discovered to have active bleeding vessel that was treated endoscopically. Objective Data Objective Data Vital Signs: Vital Signs Temp Pulse Resp BP Pulse Ox O2 Del Method O2 Flow Rate 97.9 F 72 16 100/55 L 96 Room Air 2 07/07/24 09:30 07/07/24 09:30 07/07/24 09:30 07/07/24 09:30 07/07/24 09:30 07/07/24 09:38 07/06/24 12:06 Oxygen Flow Rate (L/min) 2 Oxygen Delivery Method Room Air Weight: 178 lb 9.191 oz Body Mass Index (BMI) 25.6 Intake & Output: Intake and Output for Last 24 Hours 07/05/24 07/06/24 07/07/24 23:59 23:59 23:59 Intake Total 1440 / 1440 570 / 570 470 / 470 Output Total 1210 / 1210 1150 / 1150 150 / 150 Balance 230 / 230 -580 / -580 320 / 320 Lab / Micro Data 07/07/24 05:35 07/07/24 05:35 Labs: Laboratory Results - last 24 hr 07/06/24 17:04: POC Glucose 248 H 07/06/24 21:21: POC Glucose 327 H 07/07/24 05:35: WBC 5.9, RBC 3.02 L, Hgb 8.9 L, Hct 27.4 L, MCV 90.7, MCH 29.5, MCHC 32.5, RDW Std Deviation 62.9 H, RDW Coeff of Artemio 20.3 H, Plt Count 115 L, MPV 10.3, Immature Gran % (Auto) 0.900, Neut % (Auto) 68.1, Lymph % (Auto) 12.1 L, Park % (Auto) 14.9 H, Eos % (Auto) 3.1, Baso % (Auto) 0.9, Absolute Neuts (auto) 4.0, Absolute Lymphs (auto) 0.71 L, Nucleated RBC % 0, Platelet Estimate SLT DEC, Polychromasia 1+, Anisocytosis 2+, Macrocytosis 2+, Ovalocytes 1+, S odium 134 L, Potassium 4.1, Chloride 107, Carbon Dioxide 23.0, Anion Gap 4 L, B UN 32 H, Creatinine 1.53 H, Estim Creat Clear Calc 37.11, Est GFR (MDRD) Af Amer 56 L, Est GFR (MDRD) Non-Af 46 L, BUN/Creatinine Ratio 20.9 H, Glucose 231 H, C alcium 8.3 L 07/07/24 06:15: POC Glucose 220 H 07/07/24 11:56: POC Glucose 265 H 07/07/24 16:41: POC Glucose 247 H Micro: Microbiology 06/29/24 16:00 Stool Stool Occult Blood (TONA) - Final Occult Blood Positive Rhythm Strip Rhythm Strip: Sinus Rhythm Rate: 75 Ectopy: None Physical Exam Const alert, no apparent distress and average body habitus; Negative for no limitations or healthy appearing Constitutional Narrative: Mildly confused, elderly, white male, sitting up in bed, family and at bedside, appears comfortable, nontoxic General Appearance: cooperative, comfortable, well kempt and well developed Orientation / Consciousness: awake and oriented to person HEENT normocephalic, head/scalp atraumatic, hearing grossly normal bilaterally and moist oral mucous membranes HEENT Narrative: Mallampati 2-3, no thrush Eyes EOMs intact bilaterally Eyes Narrative: Conjunctival pallor bilaterally, no scleral icterus Neck no lymphadenopathy and supple Neck Narrative: Trachea midline Resp normal respiratory effort, no retractions, no use of accessory muscles and clear to auscultation bilaterally Auscultation: Negative for rales, rhonchi or wheezes Cardio regular rate, regular rhythm, S1 normal heart sound, S2 normal heart sound, no murmurs, no rub, no gallops and no clicks GI soft to palpation and non-tender GI Narrative: Abdomen is slightly distended with slight fluid wave, bowel sounds are normal Extremity Extremity Narrative: 2+ bilateral lower extremity pitting edema, no cyanosis or clubbing Neuro oriented x3, moves all extremities and no focal motor deficits Neuro Narrative: Marked generalized weakness noted Speech: speech normal Psych affect normal Psych Narrative: Mildly confused but interacts appropriately, pleasant and jovial at times Assessment & Plan Assessment/Plan (1) Acute upper GI bleed: (2) ABLA (acute blood loss anemia): (3) Renal insufficiency: PLAN: Plan Patient is an 84-year-old male who presented [facility] ED on 06/29/2024 with dark stools and worsening weakness. 1. Concern for recurrent upper GI bleed with acute on chronic blood loss anemia ? Hemoglobin 8.5 on admit, slightly down from last hemoglobin 9.5 on 05/31. Had upper GI bleed in December and EGD showed nonbleeding gastric ulcers. Repeat EGD on 02/17 showed ulcers with varices, portal hypertensive gastropathy and gastritis. Patient has had to remain on dual antiplatelet therapy given recent history of STEMI. I was consulted and he underwent an upper endoscopy: Findings: Grade III varices were found in the mid esophagus and in the distal esophagus. They were 24 mm in largest diameter. Moderate portal hypertensive gastropathy was found in the entire examined stomach. A few 9 mm angiodysplastic lesions with bleeding were found in the third portion of the duodenum. To stop active bleeding, hemostatic spray was deployed. Several sprays were applied. There was no bleeding at the end of the procedure. Impression: - Grade III esophageal varices. - Portal hypertensive gastropathy. 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 Hemostatic spray applied. 2. Recent history of STEMI with stenting, history of CAD, hypertension, hyperlipidemia ? Hospitalized at [facility] with STEMI in February. Had RIA x 2 placed to the mid and distal LAD. Recommendation per cardiology is that he can be on Plavix monotherapy. 3. Concern for cirrhosis with ascites, concern for hepatic encephalopathy ? Follows with both [facility] and GI, see HPI for further details. Had abdominal distention with fluid wave noted on exam on admit. Abdominal ultrasound showed hepatic cirrhosis with ascites and diffuse fatty infiltration of the liver with no focal lesions identified. MELD score of 18 on admit. Radiology consulted for diagnostic and therapeutic paracentesis. He could not get diagnostic or therapeutic paracentesis due to the fact that he cannot come off of Plavix. Ammonia level was only mildly elevated. -He has a very poor performance status and a very poor prognosis and regarding the complications from cirrhosis. He has had 2 severe GI bleeds likely from the small bowel at 2 different institutions requiring hospitalization. I had a long talk with the patient's explaining that the best thing we can recommend is beta-kwame therapy for his varices in his esophagus and symptomatic treatment of angiodysplastic lesions in the small bowel if he bleeds. He is not a candidate for TIPS procedure to relieve his portal hypertension leading to angiodysplasia and varices to cause recurrent GI bleeding due to the fact that he cannot come off of Plavix to get a TIPS procedure. That would be the ultimate treatment for him and regarding a good prognosis. Complication from that does include worsening encephalopathy however it would be his best chance at not having any recurrent GI bleeding due to decompression of his liver with a TIPS procedure. -Agree with midodrine 3 times a day to decrease ascites and continue beta- kwame therapy for varices. Recommend Xifaxan 550 mg twice a day and lactulose 30 mg twice a day. If his kidneys can handle a small dose of Lasix and Aldactone that would help prevent worsening ascites. I will discuss that with cardiology and nephrology first prior to starting those medicines. -Repeat outpatient hemoglobin in 1 to 2 days. Charges/Coding Visit Charges Inpatient E&M: 25161 Subs Hosp L3
[2024-07-07 20:28] VITALS: BP 124/71; PULSE 75; RESP 16; TEMP 36.7; O2SAT 96
[2024-07-07] MEDS: Atorvastatin Calcium 40 MG Tablet PO (20:33)
[2024-07-07] MEDS: rifAXIMin 550 MG Tablet PO (20:33)
[2024-07-07] MEDS: Pantoprazole Sodium 40 MG Tablet PO (20:33)
--- NOTE | 2024-07-07 20:56 | NURSING ---
Called Mehul allison on tcu with updated vital signs and informed hs meds were passed. updated mar placed in packet. Pt's belongings were already sent over to tcu at nurses station for transfer
[2024-07-07 20:59] LABS: Bedside Glucose 96 mg/dL (74-106)
== END 2024-07-07 20:55 | disposition skilled nursing facility (03) | DRG 378 ==
LOC: ED 16:38 → PCU 18:18
PROVIDERS: Anesthesiology; Family Medicine; Internal Medicine Gastroenterology; Admitting Provider Hospitalist; Emergency Provider Emergency Medicine; PCP Family Medicine; Referring Provider Emergency Medicine; Visit Provider Internal Medicine
PROC: 0DJ08ZZ Inspection of Upper Intestinal Tract, Via Natural or Artificial Opening Endoscopic (ICD-10-PCS; CPT 43235; principal; 2024-06-30 16:25)
DX: K31.811 Angiodysplasia of stomach and duodenum with bleeding (principal); D68.32 Hemorrhagic disorder due to extrinsic circulating anticoagulants; I24.89 Other forms of acute ischemic heart disease; D62 Acute posthemorrhagic anemia; I47.19 Other supraventricular tachycardia; K76.6 Portal hypertension; N17.9 Acute kidney failure, unspecified; R18.8 Other ascites; E11.22 Type 2 diabetes mellitus with diabetic chronic kidney disease; N18.31 Chronic kidney disease, stage 3a; D50.9 Iron deficiency anemia, unspecified; I12.9 Hypertensive chronic kidney disease with stage 1 through stage 4 chronic kidney disease, or unspecified chronic kidney disease; K25.4 Chronic or unspecified gastric ulcer with hemorrhage; E88.01 Alpha-1-antitrypsin deficiency; K74.60 Unspecified cirrhosis of liver; K31.89 Other diseases of stomach and duodenum; K76.0 Fatty (change of) liver, not elsewhere classified; E78.00 Pure hypercholesterolemia, unspecified; I85.00 Esophageal varices without bleeding; I25.10 Atherosclerotic heart disease of native coronary artery without angina pectoris; I95.9 Hypotension, unspecified; R14.0 Abdominal distension (gaseous); I25.2 Old myocardial infarction; E11.65 Type 2 diabetes mellitus with hyperglycemia; I85.01 Esophageal varices with bleeding; K29.71 Gastritis, unspecified, with bleeding; Z79.84 Long term (current) use of oral hypoglycemic drugs; Z79.82 Long term (current) use of aspirin; Z87.891 Personal history of nicotine dependence; R53.81 Other malaise; Z79.02 Long term (current) use of antithrombotics/antiplatelets; Z53.8 Procedure and treatment not carried out for other reasons; N28.9 Disorder of kidney and ureter, unspecified; Z95.5 Presence of coronary angioplasty implant and graft
CPT/HCPCS: 36415; 76700; 80048; 80053; 81001; 82140; 82274; 82570; 82728; 82962; 83036; 83540; 83550; 83735; 84156; 84300; 84443; 84484; 85014; 85018; 85025; 85027; 85610; 85730; 86850; 86900; 86901; 86920; 86922; 93005; 97162; 97166; 97530; 97535; 99284; P9016; P9047; A4216; J2405

== ENCOUNTER 2024-07-07 21:10 | Inpatient (IN) | payer MEDICARE, OTHER, SELFPAY ==
[2024-06-22 14:46] VITALS: BMI 23.1
[2024-07-07 21:32] VITALS: BP 100/58; PULSE 68; PULSE 71; RESP 17; RESP 18; TEMP 36.8; O2SAT 96; BMI 25.7
[2024-07-07 22:14] VITALS: BMI 25.7
[2024-07-07 22:16] LABS: Bedside Glucose 94 mg/dL (74-106)
[2024-07-08 06:49] LABS: Bedside Glucose 153 mg/dL (74-106)
--- NOTE | 2024-07-08 07:33 | PCM.HP.STD ---
HPI - General General Date of Admission: 07/07/24 Date of Service: 07/08/24 Chief Complaint: Here for rehabilitation. HPI Narrative EMERSON GALAN, is a 84 Male who presents with followin06/29/2024 [facility] ED with GI bleed. Melena for 1 week, weak, malaise, dyspnea on exertion. Fall, feeling weak, on Aspirin, had iron infusion for bright red blood per rectum. Suspect upper GI bleed, anemia, elevated BUN, Hemoccult positive. Troponin elevated. Protonix 40mg iv given. 06/29/2024 Admit [facility]. On DAPT 2/2 recent STEMI. Protonix 40mg iv bid, plan EGD. Continue DAPT due to STEMI, stents x 19 February 2024. Paracentesis, ammonia level, consult GI for cirrhosis, ascites, hepatic encephalopathy. PT/OT for discharge planning. 06/30/2024 Hemoglobin 7.5, Transfuse to hemoglobin > 8, transfuse 1 unit PRBC. Cancel paracentesis 2/2 Plavix. 06/30/2024 Dr. Mcgee EGD grade 3 esophageal varices, portal hypertensive gastropathy, few bleeding angiodysplastic lesions in duodenum, hemostatic spray applied. 07/01/2024 NPO. PT/OT. 07/02/2024 Sustained VT 2/2 beta kwame held, spontaneously converted. Restart beta kwame, check labs. 07/02/2024 Stop Aspirin, continue Plavix for now. Add Midodrine for hypotension. Add Spironolactone, Add Furosemide for ascites. Dr. Underwood thinks atrial tachycardia instead of VT. PT/OT. 07/03/2024 No complaints. Hemoglobin 6.2, transfuse 1 unit PRBC. PT/OT. 07/04/2024 No acute events overnight. Transfused total 2 units PRBC. Plavix thru February 2025. 07/05/[address] Mcgee because patient transfuse 2 units PRBC after EGD. 07/05/2024 Dr. Mcgee, patient not TIPS candidate 2/2 Plavix. Midodrine TID to decrease ascites. Beta kwame for varices. Xifaxan 550mg bid, Lactulose 30gm bid for hepatic encephalopathy. 07/06/2024 Dr. Mcgee EGD grade 3 esophageal varices, portal hypertensive gastropathy, single bleeding angiodysplastic lesion in duodenum, heater probe, clip placed. 07/07/2024 A1c 6.0 after blood transfusion. PT/OT SNF. 07/07/2024 Admit to TCU with debility, here for rehabilitation, strengthening, prior to discharg home with . [facility] Medical History Iron deficiency anemia High cholesterol Diabetes mellitus, type II HTN (hypertension) Ulcer Home Medications ?Medication ?Instructions ?Recorded ?Last Taken ?Type ciclopirox 8 % topical solution 1 applic topical QWEEK Nail fungus 06/29/24 Unknown History clopidogrel 75 mg tablet 75 mg PO DAILY Anticoagulant 06/29/24 Unknown History glyburide 5 mg tablet 5 mg PO BID Diabetes 06/29/24 Unknown History pantoprazole 40 mg tablet,delayed 40 mg PO BID GERD 06/29/24 Unknown History release rosuvastatin 20 mg tablet 20 mg PO DAILY Cholesterol 06/29/24 Unknown History carvedilol 12.5 mg tablet 12.5 mg PO BID Heart #0 tabs 07/07/24 Unknown Rx furosemide 20 mg tablet 20 mg PO DAILY Diuretic #0 tabs 07/07/24 Unknown Rx insulin glargine 100 unit/mL 10 unit (0.1 mL) subcut QPM 07/07/24 Unknown Rx subcutaneous solution (Lantus Diabetes #10 mL U-100 Insulin) insulin lispro 100 unit/mL 1 sliding scale dose subcut ACHS 07/07/24 Unknown History subcutaneous pen (Humalog KwikPen Diabetes (U-100) Insulin) melatonin 3 mg tablet 3 mg PO QHS PRN PRN Insomnia #0 07/07/24 Unknown Rx tabs midodrine 5 mg tablet 10 mg (2 x 5 mg) PO TIDCM Low 07/07/24 Unknown Rx blood pressure #0 tabs rifaximin 550 mg tablet (Xifaxan) 550 mg PO BID IBS #0 tabs 07/07/24 Unknown Rx spironolactone 50 mg tablet 50 mg PO DAILY Diuretic #0 tabs 07/07/24 Unknown Rx Allergy/AdvReac Type Severity Reaction Status Date / Time oxycodone AdvReac CONFUSION Verified 06/29/24 14:09 tramadol AdvReac CONFUSION Verified 06/29/24 14:09 Surgical History Status post reverse arthroplasty of right shoulder S/P appendectomy Social History (Updated 07/08/24 @ 07:[address] Derik Moses MD) household members: spouse Smoking Status: Former smoker alcohol intake: never substance use type: does not use ROS Constitutional Constitutional: Reports weakness; Denies chills, fever(s) or weight gain ENT HEENT: Denies headache(s), nasal congestion or nasal discharge Cardiovascular Cardiovascular: Denies chest pain or palpitations Respiratory/Chest Respiratory/Chest: Denies cough, excessive phlegm production or shortness of breath with exertion Gastrointestinal Gastrointestinal: Denies abdominal pain, nausea or vomiting Genitourinary Genitourinary: Denies dysuria Musculoskeletal Musculoskeletal: Denies joint pain or joint swelling Integumentary Integumentary: Denies rash or wounds Neurologic Neurologic: Denies focal weakness, numbness or tingling Psychiatric Psychiatric: Denies anxiety, auditory hallucinations, depression, homicidal ideation or suicidal ideation Vital Signs Vital Signs Vital Signs: 07/07/24 21:32 07/07/24 21:32 Temperature 98.2 F Temperature Source Oral Pulse Rate 71 68 Pulse Rhythm Regular Pulse Strength Normal (2+) Respiratory Rate 17 18 Respiratory Effort Normal Non-Labored Respiratory Depth Normal Respiratory Pattern Normal Blood Pressure 100/58 L Blood Pressure Mean 72 Blood Pressure Source Monitor Blood Pressure Position Supine Blood Pressure Location Right Arm Pulse Ox 96 96 Oxygen Delivery Method Room Air Room Air Weight Weight: 81.335 kg Body Mass Index (BMI) 25.7 Physical Exam Const alert General Appearance: cooperative HEENT normocephalic Eyes PERRL and EOMs intact bilaterally Neck supple, no JVD and no carotid bruits Resp normal respiratory effort, normal air movement and clear to auscultation bilaterally Cardio regular rate and regular rhythm GI soft to palpation and non-tender GI Narrative: Distended abdomen. 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 transplanted heart: [place] heart Qualified Code(s): I25.10 - Atherosclerotic heart disease of [place] coronary artery without angina pectoris (12) Diabetes mellitus: (13) Hyperlipidemia: (14) Essential (primary) hypertension: (15) GERD (gastroesophageal reflux disease): PLAN: Plan 84 year old male with below past medical history hospitalized for upper gastrointestinal 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 Debility - PT/OT. Cognition - ST. Pain - monitor. Bowel - Dulcolax 10mg pr daily prn, Magnesium citrate 150mL po x 1 prn, MOM 30ml daily prn. Adult immunization - Administer pneumonia vaccine, covid vaccine, flu vaccine as appropriate. DVT prophylaxis - Hold, GI bleed. Hyperlipidemia - Atorvastatin 20mg qhs. Coronary artery disease s/p stent - Coreg 12.5mg bid, Plavix 75mg daily. Esophageal varices - Coreg 12.5mg bid. Ascites - Midodrine 10mg tidcm, Furosemide 20mg daily, Aldactone 50mg daily, no paracentesis 2/2 Plavix. Diabetes Mellitus II - Glyburide 5mg bid, Glargine 10 units daily. Insomnia - Melatonin 3mg qhs prn. Skin irritation - Calmoseptine topical bid. Tinea corporis - Nystatin powder topical bid. Duodenal angiodysplasia - Pantoprazole 40mg bid. Hepatic encephalopathy - Xifaxan 550mg po bid.
[2024-07-08] MEDS: Insulin Lispro 100 UNIT/ML INSULN.PEN SC (07:53)
[2024-07-08] MEDS: rifAXIMin 550 MG Tablet PO ×2 (07:54→21:59)
[2024-07-08] MEDS: Spironolactone 50 MG Tablet PO (07:54)
[2024-07-08] MEDS: Midodrine HCl 5 MG Tablet 10 MG PO ×3 (07:54→16:43)
[2024-07-08] MEDS: Carvedilol 12.5 MG Tablet PO ×2 (07:54→16:43)
[2024-07-08] MEDS: Furosemide 20 MG Tablet PO (07:54)
[2024-07-08] MEDS: Clopidogrel Bisulfate 75 MG Tablet PO (07:54)
[2024-07-08] MEDS: Pantoprazole Sodium 40 MG Tablet PO ×2 (07:54→21:59)
[2024-07-08 08:07] LABS: Absolute Lymphocyte Count 0.75 X10^3/uL (0.83-4.51); Absolute Neutrophil Count 2.9 X10^3/uL (2.0-7.7); Basophil# 0.03 X10^3/uL; Basophil% 0.6 % (0-1); Eosinophil# 0.26 X10^3/uL; Eosinophils% 5.5 % (0-5); Hematocrit 27.3 % (40-54); Hemoglobin 8.7 g/dL (13.0-16.5); Lymphocyte # 0.75 X10^3/ul (0.83-4.51); Lymphocyte % 15.8 % (19-41); Mean Corp Hgb Conc 31.9 g/dL (32-36); Mean Corpuscular Hgb 29.1 pg (27.0-32.0); Mean Corpuscular Volume 91.3 fL (80-94); Mean Platelet Vol. 10.9 fl (6.2-12.0); Monocyte# 0.82 X10^3/uL; Monocyte% 17.3 % (0-10); NRBC Flagged by Analyzer 0 % (0-5); Neutrophil # 2.86 X10^3/uL (2.7-7.7); Neutrophil % 60.4 % (47-70); POSITIVE MORPHOLOGY YES; Platelet Count 128 K/mm3 (150-450); RBC Distribution Width CV 20.4 % (11.6-14.6); RBC Distribution Width SD 66.4 fl (35.1-43.9); Red Blood Count 2.99 M/mm3 (4.6-6.2); White Blood Count 4.7 K/mm3 (4.4-11.0)
[2024-07-08 08:11] LABS: Differential Indicated SCAN CRITERIA MET
[2024-07-08 08:34] LABS: Anion Gap 5 (5-15); BUN 29 mg/dL (7-18); BUN/Creat Ratio 18.7 RATIO (10-20); Calcium,Total 8.4 mg/dL (8.5-10.1); Chloride 106 mmol/L (98-107); Creatinine, Serum 1.55 mg/dL (0.70-1.30); EST Glomerular Filtration Rate 46 mL/min (>60); Est Glom Filt Rate - Afr Amer 55 mL/min (>60); Estimated Creatinine Clearance 36.63 ml/min; Glucose 145 mg/dL (74-106); Potassium 4.3 mmol/L (3.5-5.1); Sodium Level 135 mmol/L (136-145)
[2024-07-08 09:15] LABS: Anisocytosis 2+; Differential Comment SCANNED; Macrocytosis 1+; Platelet Estimate SLT DEC (ADEQ); Polychromasia 1+
[2024-07-08] MEDS: Nystatin Powder 15gm Bottle 1 APPLIC TOPICAL ×2 (09:23→21:58)
[2024-07-08] MEDS: Menthol/Lanolin/Calamine/Znox 113 GM Tube 1 APPLIC TOPICAL ×2 (09:24→21:57)
[2024-07-08] MEDS: Tuberculin,Purif.prot.deriv. 50 TU/ML Vial 0.1 ML ID (09:24)
[2024-07-08 11:33] VITALS: BP 100/60; PULSE 78; RESP 18; TEMP 36.4; O2SAT 97
[2024-07-08 11:53] LABS: Bedside Glucose 312 mg/dL (74-106)
--- NOTE | 2024-07-08 12:30 | NURSING ---
Coal Picker Note; Activity Asset: Lesly Holley is independent in his daily activities with reminder. He stated he prefers to watch tv and rest. Family and friends will visits daily and bring him items he may need. Staff will remind him of social activities, in room activities and respect his right to say no.
[2024-07-08 17:22] LABS: Bedside Glucose 291 mg/dL (74-106)
[2024-07-08 21:43] LABS: Bedside Glucose 346 mg/dL (74-106)
[2024-07-08] MEDS: Insulin Glargine-YFGN 100 UNIT/ML Pen 10 UNIT SC (21:55)
[2024-07-08] MEDS: Atorvastatin Calcium 40 MG Tablet PO (21:58)
[2024-07-08] MEDS: 0.9% Saline Lock 10 ML Syringe IV (21:59)
[2024-07-09 06:18] LABS: Bedside Glucose 188 mg/dL (74-106)
[2024-07-09] MEDS: Midodrine HCl 5 MG Tablet 10 MG PO ×3 (07:47→17:46)
[2024-07-09] MEDS: Insulin Lispro 100 UNIT/ML INSULN.PEN 7 UNIT SC ×3 (07:47→17:46)
[2024-07-09] MEDS: rifAXIMin 550 MG Tablet PO ×2 (07:48→21:46)
[2024-07-09] MEDS: Pantoprazole Sodium 40 MG Tablet PO ×2 (07:48→21:46)
[2024-07-09] MEDS: Spironolactone 50 MG Tablet PO (07:48)
[2024-07-09] MEDS: Menthol/Lanolin/Calamine/Znox 113 GM Tube 1 APPLIC TOPICAL ×2 (07:48→21:47)
[2024-07-09] MEDS: Furosemide 20 MG Tablet PO (07:48)
[2024-07-09] MEDS: Clopidogrel Bisulfate 75 MG Tablet PO (07:48)
[2024-07-09] MEDS: Nystatin Powder 15gm Bottle 1 APPLIC TOPICAL ×2 (07:48→21:47)
[2024-07-09] MEDS: Carvedilol 12.5 MG Tablet PO ×2 (07:48→17:46)
[2024-07-09 09:23] VITALS: BP 103/72; PULSE 78; RESP 16; TEMP 36.5; O2SAT 99
--- NOTE | 2024-07-09 10:31 | PCM.PN.DRR ---
Documented by User: Olaf Tierney 07/09/24 10:50 TCU RX Drug Regimen Review Subjective/Objective Subjective/Objective Subjective: TCU admission note. 84 year old male with below past medical history hospitalized for upper gastrointestinal 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 Objective: Allergies oxycodone Adverse Reaction (Verified 06/29/24 14:09) CONFUSION tramadol Adverse Reaction (Verified 06/29/24 14:09) CONFUSION Current Medications Generic Name Dose Route Start Last Admin Trade Name Freq PRN Reason Stop Dose Admin Atorvastatin Calcium 40 mg 07/08/24 22:00 07/08/24 21:58 Atorvastatin Calcium 40 Mg Tablet PO 40 mg 2200 VINCE Administration Bisacodyl 10 mg 07/07/24 22:14 Bisacodyl 10 Mg Suppository RC DAILY PRN PRN Constipation Calamine/Phenol 1 applic 07/08/24 10:00 07/09/24 07:48 Menthol/Lanolin/Calamine/Znox 113 Gm Tube TOPICAL 1 applic BID VINCE Administration Protocol Carvedilol 12.5 mg 07/08/24 08:00 07/09/24 07:48 Carvedilol 12.5 Mg Tablet PO 12.5 mg BIDCM VINCE Administration Protocol Clopidogrel Bisulfate 75 mg 07/08/24 10:00 07/09/24 07:48 Clopidogrel Bisulfate 75 Mg Tablet PO 75 mg DAILY VINCE Administration Furosemide 20 mg 07/08/24 10:00 07/09/24 07:48 Furosemide 20 Mg Tablet PO 20 mg DAILY VINCE Administration Protocol Glyburide 5 mg 07/08/24 08:00 07/09/24 07:48 Glyburide 5 Mg Tablet PO 5 mg BIDCM VINCE Administration Sodium Chloride 100 mls @ 15 mls/hr 07/07/24 22:29 IV .Q6H40M PRN Saline Flush Influenza Virus Vaccine 180 mcg 07/11/24 10:00 Flu Vaccine High Dose Tv 24-25 180 Mcg/0.5 Ml Syringe IM 07/11/24 10:01 .ONCE ONE Insulin Glargine 20 unit 07/09/24 22:00 Insulin Glargine-Yfgn 100 Unit/Ml Pen SC QHS VINCE Insulin Human Lispro 7 unit 07/09/24 06:45 07/09/24 07:47 Insulin Lispro 100 Unit/Ml Insuln.Pen SC 7 units TIDAC VINCE Administration Magnesium Citrate 150 ml 07/07/24 22:14 Magnesium Citrate 300 Ml PO X1 PRN Constipation Magnesium Hydroxide 30 ml 07/07/24 22:14 Magnesium Hydroxide 30 Ml Udc PO DAILY PRN PRN Constipation Melatonin 3 mg 07/07/24 22:21 Melatonin 3 Mg Tablet PO QHS PRN PRN Insomnia Midodrine 10 mg 07/08/24 07:45 07/09/24 07:47 Midodrine Hcl 5 Mg Tablet PO 10 mg TIDCM VINCE Administration Nystatin 1 applic 07/08/24 10:00 07/09/24 07:48 Nystatin Powder 15gm Bottle TOPICAL 1 applic BID VINCE Administration Protocol Pantoprazole Sodium 40 mg 07/08/24 10:00 07/09/24 07:48 Pantoprazole Sodium 40 Mg Tablet PO 40 mg BID VINCE Administration Rifaximin 550 mg 07/08/24 10:00 07/09/24 07:48 Rifaximin 550 Mg Tablet PO 550 mg BID VINCE Administration Sodium Chloride 10 - 40 ml 07/07/24 22:29 07/08/24 21:59 0.9% Saline Lock 10 Ml Syringe IV 10 ml UD PRN Administration SALINE FLUSH Spironolactone 50 mg 07/08/24 08:00 07/09/24 07:48 Spironolactone 50 Mg Tablet PO 50 mg DAILYCM VINCE Administration Protocol Tuberculin PPD 0.1 ml 07/15/24 10:00 Tuberculin,Purif.Prot.Deriv. 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 (Acute) Debility (Acute) Coronary artery disease (Acute) ABLA (acute blood loss anemia) (Acute) Vital Signs Temp Pulse Resp BP Pulse Ox O2 Del Method 97.7 F L 78 16 103/72 99 Room Air 07/09/24 09:23 07/09/24 09:23 07/09/24 09:23 07/09/24 09:23 07/09/24 09:23 07/09/24 09:23 Oxygen Delivery Method Room Air Weight: 81.335 kg Body Mass Index (BMI) 25.7 Sodium 135 mmol/L (136-145) L 07/08/24 06:31 Potassium 4.3 mmol/L (3.5-5.1) 07/08/24 06:31 Chloride 106 mmol/L (98-107) 07/08/24 06:31 Carbon Dioxide 25.0 mmol/L (21.0-32.0) 07/08/24 06:31 Anion Gap 5 (5-15) 07/08/24 06:31 BUN 29 mg/dL (7-18) H 07/08/24 06:31 Creatinine 1.55 mg/dL (0.70-1.30) H 07/08/24 06:31 Est GFR (MDRD) Af Amer 55 mL/min (>60) L 07/08/24 06:31 Est GFR (MDRD) Non-Af 46 mL/min (>60) L 07/08/24 06:31 BUN/Creatinine Ratio 18.7 RATIO (10-20) 07/08/24 06:31 Glucose 145 mg/dL (74-106) H 07/08/24 06:31 Assessment/Plan: 1. Bowel: bisacodyl 10 mg KS daily PRN constipation, magnesium hydroxide 30 mL PO daily PRN constipation, magnesium citrate 300 mL PO daily PRN constipation. The patient has not required any PRN medications for constipation so far this admission and the patient's last bowel movement was 07/09/24. Please continue to monitor for bowel movements, for constipation, for diarrhea and for PRN medication usage. 2. Coronary artery disease/hyperlipidemia/esophageal varices: atorvastatin 20 mg PO QHS, carvedilol 12.5 mg Po BID, clopidogrel 75 mg PO daily: Please continue to monitor for chest pain, shortness of breath, lipid levels (no recent lipid levels documented), LFTs (AST/ALT = 45/33 U/L on 06/30/24), for myalgias, blood pressures (recent range = 100-124/55-87 mmHg), heart rates (recent range = 60-89 beats/min), for fatigue, for bruising/bleeding, and hemoglobin levels (Hgb = 8.7 g/dL on 07/08/24) as well as platelet counts (Plt = 128 K/mm3 on ). Please consider getting an annual lipid panel if clinically indicated. 3. Ascites: midodrine 10 mg PO TID with meals, furosemide 20 mg PO daily, spironolactone 50 mg PO daily with a meal. Please continue to monitor for ascites, for fever/chills (s/s of SBP), abdominal tenderness, blood pressures (recent range = 100-124/55-87 mmHg), renal function (serum creatinine = 1.55 mg/dL with creatinine clearance ~ 37 mL/min on 07/08/24), calcium levels (Ca = 8.4 mg/dL on 07/08/24), potassium levels (K = 4.3 mmol/L on 07/08/24), and sodium levels (Na = 135 mmol/L on 07/08/24). 4. Diabetes Mellitus II: Insulin glargine 20 units QHS, insulin lispro 7 units TID before meals, glyburide 5 mg PO BID with meals. Please continue to monitor blood glucose levels (recent range = 94-346 mg/dL), hemoglobin A1C levels (A1C = 6.0% on 07/06/24), renal function (serum creatinine = 1.55 mg/dL with creatinine clearance ~ 37 mL/min on 07/08/24), and for s/s of hypo/hyperglycemia. The patient is 84 years old with marginal renal function. Due to risk for hypoglycemic events would advise stopping glyburide and just using basal/bolus insulin to manage the patient's blood sugars. 5. Hepatic encephalopathy: rifaximin 550 mg PO BID. Please continue to monitor for confusion, ammonia levels (ammonia = 22.0 umol/L on 06/29/24), for edema, ascites, nausea, dizziness and fatigue. 6. Duodenal angiodysplasia: pantoprazole 40 mg PO BID. Please continue to monitor for abdominal pain, for s/s of GI bleeding, for diarrhea that could indicate clostridium difficile infection and for s/s of bone resorption such as fractures. 7. Insomnia: melatonin 3 mg PO QHS PRN insomnia. The patient has not required any PRN doses of melatonin so far this admission. Please continue to monitor for insomnia, drowsiness and PRN medication usage. 8. Skin irritation/tinea corporis: calmoseptine 1 application topically BID, nystatin powder 1 application topically BID. Please continue to monitor for skin irritation and for resolution of tinea corporis. Assessment/Plan for indications treated with psychotropic medications: NA Medical chart and medication regimen reviewed. The following medication irregularities or issues were identified: 1. Coronary artery disease/hyperlipidemia/esophageal varices: atorvastatin 20 mg PO QHS, carvedilol 12.5 mg Po BID, clopidogrel 75 mg PO daily:Please consider getting an annual lipid panel if clinically indicated. 2. Diabetes Mellitus II: Insulin glargine 20 units QHS, insulin lispro 7 units TID before meals, glyburide 5 mg PO BID with meals. The patient is 84 years old with marginal renal function. Due to risk for hypoglycemic events would advise stopping glyburide and just using/titrating the basal/bolus insulin to manage the patient's blood sugars. Date Date of Note: 07/09/24 Documented by User: Dr. Derik Moses MD 07/10/24 13:10 TCU RX Drug Regimen Review Provider Comments Provider responsibility Provider Comments to Recommendations by Pharmacy Agree
--- NOTE | 2024-07-09 10:47 | NS ---
Received call from TCU this morning that Dr. Mcgee resumed diet to regular and resident with elevated blood glucose. Changed diet to Carbohydrate-Controlled/ANAI as per RD recommendation per yesterday's nutrition assessment/documentation. Patricia Hawkins, MS, RD, LD
[2024-07-09 12:00] LABS: Bedside Glucose 162 mg/dL (74-106)
[2024-07-09 12:25] VITALS: BP 102/63
[2024-07-09 16:44] LABS: Bedside Glucose 176 mg/dL (74-106)
[2024-07-09 21:29] LABS: Bedside Glucose 136 mg/dL (74-106)
[2024-07-09] MEDS: Atorvastatin Calcium 40 MG Tablet PO (21:47)
[2024-07-09] MEDS: Insulin Glargine-YFGN 100 UNIT/ML Pen 20 UNIT SC (21:48)
[2024-07-09] MEDS: 0.9% Saline Lock 10 ML Syringe IV (21:52)
[2024-07-10 06:38] LABS: Bedside Glucose 69 mg/dL (74-106)
[2024-07-10 06:39] LABS: Bedside Glucose 97 mg/dL (74-106)
[2024-07-10 08:00] VITALS: BP 117/68; PULSE 61; RESP 18; TEMP 36.4; O2SAT 98
[2024-07-10] MEDS: Midodrine HCl 5 MG Tablet 10 MG PO ×3 (08:39→17:43)
[2024-07-10] MEDS: rifAXIMin 550 MG Tablet PO ×2 (08:40→20:07)
[2024-07-10] MEDS: Carvedilol 12.5 MG Tablet PO ×2 (08:40→17:43)
[2024-07-10] MEDS: Pantoprazole Sodium 40 MG Tablet PO ×2 (08:40→20:07)
[2024-07-10] MEDS: Clopidogrel Bisulfate 75 MG Tablet PO (08:40)
[2024-07-10] MEDS: Spironolactone 50 MG Tablet PO (08:40)
[2024-07-10] MEDS: Furosemide 20 MG Tablet PO (08:40)
[2024-07-10] MEDS: Nystatin Powder 15gm Bottle 1 APPLIC TOPICAL ×2 (08:41→20:08)
[2024-07-10] MEDS: Menthol/Lanolin/Calamine/Znox 113 GM Tube 1 APPLIC TOPICAL ×2 (08:41→20:07)
[2024-07-10] MEDS: 0.9% Saline Lock 10 ML Syringe IV ×2 (08:42→20:06)
[2024-07-10 11:15] VITALS: PULSE 61; RESP 18
[2024-07-10 11:45] LABS: Bedside Glucose 172 mg/dL (74-106)
[2024-07-10] MEDS: Insulin Lispro 100 UNIT/ML INSULN.PEN 7 UNIT SC ×2 (12:20→17:43)
[2024-07-10 12:29] VITALS: BP 97/68; PULSE 77
[2024-07-10 16:57] LABS: Bedside Glucose 273 mg/dL (74-106)
--- NOTE | 2024-07-10 17:05 | NURSING ---
New order received from Dr. Moses 1) D/C Glyburide. Patient aware of above.
[2024-07-10 17:47] VITALS: BP 128/75; PULSE 84
[2024-07-10] MEDS: MELATONIN 3 MG TABLET PO (20:06)
[2024-07-10] MEDS: Atorvastatin Calcium 40 MG Tablet PO (20:07)
[2024-07-10] MEDS: Insulin Glargine-YFGN 100 UNIT/ML Pen 20 UNIT SC (20:10)
[2024-07-10 20:37] LABS: Bedside Glucose 178 mg/dL (74-106)
[2024-07-11 06:44] LABS: Bedside Glucose 78 mg/dL (74-106)
[2024-07-11] MEDS: Clopidogrel Bisulfate 75 MG Tablet PO (08:16)
[2024-07-11] MEDS: Midodrine HCl 5 MG Tablet 10 MG PO ×3 (08:16→17:07)
[2024-07-11] MEDS: Spironolactone 50 MG Tablet PO (08:16)
[2024-07-11] MEDS: Pantoprazole Sodium 40 MG Tablet PO ×2 (08:16→22:10)
[2024-07-11] MEDS: Furosemide 20 MG Tablet PO (08:16)
[2024-07-11] MEDS: Carvedilol 12.5 MG Tablet PO ×2 (08:16→17:07)
[2024-07-11] MEDS: Menthol/Lanolin/Calamine/Znox 113 GM Tube 1 APPLIC TOPICAL ×2 (08:16→22:05)
[2024-07-11] MEDS: rifAXIMin 550 MG Tablet PO ×2 (08:16→22:10)
[2024-07-11] MEDS: Nystatin Powder 15gm Bottle 1 APPLIC TOPICAL ×2 (08:16→22:09)
--- NOTE | 2024-07-11 08:53 | NURSING ---
Offered covid vaccine, VIS provided. Resident refuses at this time.
[2024-07-11 09:26] LABS: Cholesterol 75 mg/dL (200); High Density Lipoprotein 44 mg/dL; Triglycerides 59 mg/dL; Very Low Density Lipoprotein 12 mg/dL (5-40)
[2024-07-11 10:56] VITALS: BP 99/58; PULSE 70; RESP 16; TEMP 36.4; O2SAT 95
[2024-07-11 11:25] LABS: Bedside Glucose 205 mg/dL (74-106)
[2024-07-11] MEDS: Insulin Lispro 100 UNIT/ML INSULN.PEN 7 UNIT SC ×2 (11:57→17:05)
[2024-07-11] MEDS: FLU VACCINE **HIGH DOSE** TV 24-25 180 MCG/0.5 ML SYRINGE IM (15:58)
[2024-07-11 16:32] LABS: Bedside Glucose 211 mg/dL (74-106)
[2024-07-11 21:40] LABS: Bedside Glucose 190 mg/dL (74-106)
[2024-07-11] MEDS: Insulin Glargine-YFGN 100 UNIT/ML Pen 15 UNIT SC (22:06)
[2024-07-11] MEDS: 0.9% Saline Lock 10 ML Syringe IV (22:08)
[2024-07-11] MEDS: Atorvastatin Calcium 40 MG Tablet PO (22:09)
--- NOTE | 2024-07-12 02:36 | NURSING ---
Pt. called out for nurse sating his bladder felt full. Bladder scanned for 600cc. This nurse assisted pt. to stand and void in urinal. Pt. voided 300cc in urinal, Pt bladder scanned post void for 315cc. Straight cathed pt. for 250cc.
[2024-07-12 06:47] LABS: Bedside Glucose 59 mg/dL (74-106)
[2024-07-12 07:25] LABS: Bedside Glucose 125 mg/dL (74-106)
[2024-07-12] MEDS: Nystatin Powder 15gm Bottle 1 APPLIC TOPICAL ×2 (07:58→21:59)
[2024-07-12] MEDS: Menthol/Lanolin/Calamine/Znox 113 GM Tube 1 APPLIC TOPICAL ×2 (07:58→21:59)
[2024-07-12] MEDS: Furosemide 20 MG Tablet PO (07:58)
[2024-07-12] MEDS: Clopidogrel Bisulfate 75 MG Tablet PO (07:58)
[2024-07-12] MEDS: Carvedilol 12.5 MG Tablet PO ×2 (07:58→17:33)
[2024-07-12] MEDS: Pantoprazole Sodium 40 MG Tablet PO ×2 (07:58→21:58)
[2024-07-12] MEDS: rifAXIMin 550 MG Tablet PO ×2 (07:58→21:59)
[2024-07-12] MEDS: Spironolactone 50 MG Tablet PO (07:58)
[2024-07-12] MEDS: Midodrine HCl 5 MG Tablet 10 MG PO ×3 (07:58→17:33)
[2024-07-12 10:55] VITALS: BP 125/81; PULSE 83; RESP 18; TEMP 36.5; O2SAT 99
[2024-07-12 12:04] LABS: Bedside Glucose 176 mg/dL (74-106)
[2024-07-12 14:12] VITALS: BMI 26.0
--- NOTE | 2024-07-12 14:21 | CHAPLAIN ---
Type of Pastoral Visit ___ Initial Visit _x__ Follow-up Visit ___ On-call Visit ___ General Patient Visit ___ Spiritual Assessment ___ Family Conference ___ Bereavement ___ Rapid Response ___ Code Blue ___ Other (describe below) Pastoral Care Referral From _x__ Patient _x__ Family ___ Nurse ___ Physician ___ Family Health Nurse Practitioner ___ Arts Therapist ___ Other (describe below) Sacrament/Intervention ___ Active listening ___ Anointing ___ Jew ___ Bereavement ___ Communion ___ Tala exploration ___ ___ Life review _x__ Prayer ___ Reconciliation ___ Sacrament of Sick _x__ Supportive presence ___ Wedding ___ Other (describe below) Pastoral Comments this patient was previously seen in PCU; patient appeared to be napping with his eyes closed but responded immediately to his name; offer of support and presence was met with apathy by the patient who did not open his eyes after the initial introduction; pt was asked about how he is doing and how he is managing in the situation; responses were I guess, fine or fine, I suppose without any emotion; asked patient about any needs or concerns or how he could be helped today and patient says nothing; offer of prayer was met with sure; offered to let the patient rest
--- NOTE | 2024-07-12 14:26 | CASEMGMT ---
Social Work SW phoned to complete initial assessment. Introduced self and role. Verified/updated contacts. After discussion, SW inquired about pt's wishes for code status. recalls completing a DNR, though may be confusing that with a living will. to review paperwork and notify this worker or nursing if there is a DNR. SW confirmed full code at this time and confirmed for pt to be resuscitated. SW educated to Medicare benefit and copay coverage. 's wishes are for pt to return home at [facility]. Pt has a son but is disabled and cannot assist. SW confirmed there are no other family or friends that can assist. SW will continue to follow and assist with DC planning. Zelda Acosta, BUSINESS MANAGER FIRE SUPERVISOR
[2024-07-12] MEDS: Insulin Lispro 100 UNIT/ML INSULN.PEN 7 UNIT SC (17:34)
[2024-07-12 18:16] LABS: Bedside Glucose 352 mg/dL (74-106)
[2024-07-12] MEDS: Insulin Glargine-YFGN 100 UNIT/ML Pen 15 UNIT SC (21:57)
[2024-07-12] MEDS: Atorvastatin Calcium 40 MG Tablet PO (21:58)
[2024-07-12] MEDS: 0.9% Saline Lock 10 ML Syringe IV (22:02)
[2024-07-12 22:05] VITALS: RESP 16
[2024-07-12 22:17] LABS: Bedside Glucose 224 mg/dL (74-106)
[2024-07-13] MEDS: MELATONIN 3 MG TABLET PO ×2 (01:58→23:11)
[2024-07-13 06:30] LABS: Bedside Glucose 75 mg/dL (74-106)
[2024-07-13 06:30] LABS: Bedside Glucose 57 mg/dL (74-106)
[2024-07-13 08:10] VITALS: BP 125/76; PULSE 78; O2SAT 97
[2024-07-13] MEDS: Pantoprazole Sodium 40 MG Tablet PO ×2 (08:13→23:11)
[2024-07-13] MEDS: rifAXIMin 550 MG Tablet PO ×2 (08:13→23:11)
[2024-07-13] MEDS: Menthol/Lanolin/Calamine/Znox 113 GM Tube 1 APPLIC TOPICAL ×2 (08:13→23:12)
[2024-07-13] MEDS: Clopidogrel Bisulfate 75 MG Tablet PO (08:13)
[2024-07-13] MEDS: Midodrine HCl 5 MG Tablet 10 MG PO ×3 (08:13→18:03)
[2024-07-13] MEDS: Carvedilol 12.5 MG Tablet PO ×2 (08:13→18:03)
[2024-07-13] MEDS: Furosemide 20 MG Tablet PO (08:13)
[2024-07-13] MEDS: Spironolactone 50 MG Tablet PO (08:13)
[2024-07-13] MEDS: Nystatin Powder 15gm Bottle 1 APPLIC TOPICAL ×2 (08:14→23:12)
[2024-07-13 10:21] LABS: Anion Gap 3 (5-15); BUN 23 mg/dL (7-18); BUN/Creat Ratio 14.2 RATIO (10-20); Calcium,Total 7.9 mg/dL (8.5-10.1); Chloride 105 mmol/L (98-107); Creatinine, Serum 1.62 mg/dL (0.70-1.30); EST Glomerular Filtration Rate 43 mL/min (>60); Est Glom Filt Rate - Afr Amer 52 mL/min (>60); Estimated Creatinine Clearance 35.05 ml/min; Glucose 159 mg/dL (74-106); Potassium 5.2 mmol/L (3.5-5.1); Sodium Level 134 mmol/L (136-145)
[2024-07-13 12:05] LABS: Bedside Glucose 111 mg/dL (74-106)
[2024-07-13 12:30] VITALS: BP 92/64
[2024-07-13 13:42] LABS: Osmolality, Serum 286 mOsm/KG (280-301)
[2024-07-13] MEDS: Lactulose 20 GM/30 ML UDC PO (15:36)
[2024-07-13 17:53] LABS: Urine Sodium 60 mmol/L (Not Establ.)
[2024-07-13 17:55] LABS: Bedside Glucose 239 mg/dL (74-106)
[2024-07-13] MEDS: Insulin Lispro 100 UNIT/ML INSULN.PEN 7 UNIT SC (17:59)
[2024-07-13 18:00] LABS: Osmolality, Urine 428 mOsm/KG
--- NOTE | 2024-07-13 19:33 | NURSING ---
Addendum entered by Noah Espinoza 07/14/24 04:00: Pt returned to unit at 2300 on 07/13. Original Note: Notified Dr Sandhu, pt unable to void. Bladder scan greater than 550. Rodriguez placed, urine began draining then stopped. Attempted to reposition rodriguez with no further drainage. Dr Sandhu ordered for pt to be sent to ER.
--- NOTE | 2024-07-13 19:35 | NURSING ---
ER notified and pt sent to ER.
[2024-07-13] MEDS: traZODone 50 MG Tablet PO (23:10)
[2024-07-13] MEDS: Atorvastatin Calcium 40 MG Tablet PO (23:11)
[2024-07-13] MEDS: Insulin Glargine-YFGN 100 UNIT/ML Pen 15 UNIT SC (23:12)
[2024-07-13 23:24] LABS: Bedside Glucose 127 mg/dL (74-106)
--- NOTE | 2024-07-14 03:58 | NURSING ---
Marilyn admissions nurse notified via secured backline message of pt. trip to the ER from [phone] to [phone] on 07/13.
[2024-07-14 05:46] LABS: Anion Gap 3 (5-15); BUN 25 mg/dL (7-18); BUN/Creat Ratio 17.6 RATIO (10-20); Calcium,Total 8.2 mg/dL (8.5-10.1); Chloride 106 mmol/L (98-107); Creatinine, Serum 1.42 mg/dL (0.70-1.30); EST Glomerular Filtration Rate 51 mL/min (>60); Est Glom Filt Rate - Afr Amer 61 mL/min (>60); Estimated Creatinine Clearance 39.98 ml/min; Glucose 102 mg/dL (74-106); Potassium 5.5 mmol/L (3.5-5.1); Sodium Level 136 mmol/L (136-145)
[2024-07-14 07:00] LABS: Bedside Glucose 97 mg/dL (74-106)
[2024-07-14] MEDS: Carvedilol 12.5 MG Tablet PO ×2 (08:34→17:42)
[2024-07-14] MEDS: Lactulose 20 GM/30 ML UDC PO (08:34)
[2024-07-14] MEDS: Midodrine HCl 5 MG Tablet 10 MG PO ×3 (08:35→17:41)
--- NOTE | 2024-07-14 09:42 | PN_ITS ---
Subjective Subjective Afebrile VSS - Maintaining appropriate oxygen saturation on RA Oral intake - FOOD variable. Refused breakfast yesterday but then ate 50 to 74% of his lunch and supper. He had 75 to 100% of his breakfast this morning. FLUIDS poor Discussed with nursing - He was sent to the ED yesterday for urine retention. Domínguez was inserted in ED and he had only 20 cc in the bladder. CT of the abd showed a cirrhotic liver with evidence of portal hypertension and marked ascites. He also has diverticuli and a few punctate nonobstructing renal calculi bilaterally. UA in the emergency department showed greater than 100 RBCs per high-power field and 50-100 white blood cells. There was 1+ bacteria. Urine culture was sent and he was placed on Omnicef. He received 1 g of Rocephin in the emergency department. BMP today shows a sodium of 136 and a potassium of 5.5. The BUN is 25 with a creatinine of 1.42 which is within his baseline. Calcium corrected for hypoalbuminemia is within normal limits. LFTs yesterday showed an alkaline phosphatase of 677 and total bilirubin of 0.6. AST was 91 and the ALT was 57. PT yesterday was 15.4. PTT was normal. He has been thrombocytopenic but the platelets on 07/13/2024 were normal at 157,000. Reviewed the THERAPY notes Medication list reviewed. EGD during his hospital stay showed grade 3 esophageal varices and portal hypertensive gastropathy. There was a single bleeding angioplastic lesion in the duodenum which was treated with a heater probe and then clipped. I reviewed the EMR from his most recent hospital stay. He has known severe aortic stenosis, cirrhosis with portal hypertension, ascites, esophageal varices, history of GI bleeds with ulcers, he has had physical and cognitive decline over the past several months. He was placed on rifaximin during this most recent hospital stay. He has followed up with [facility] and in the past. He was not diagnosed with cirrhosis until late 2022 per EMR. Yesterday his ammonia was 48 and he was confused and somewhat obtunded. He was given lactulose with good result and the repeat ammonia today is 15. Potassium was high yesterday and a potassium restriction was added to his diet. Aldactone has been placed on hold. Objective Data Objective Data Vital Signs: Vital Signs Temp Pulse Resp BP Pulse Ox O2 Del Method 97.7 F L 78 16 92/64 97 Room Air 07/12/24 10:55 07/13/24 08:10 07/12/24 22:05 07/13/24 12:30 07/13/24 08:10 07/13/24 10:00 Oxygen Delivery Method Room Air Weight: 181 lb 12.8 oz Body Mass Index (BMI) 26.0 Intake & Output: Intake and Output for Last 24 Hours 07/12/24 07/13/24 07/14/24 23:59 23:59 23:59 Intake Total 720 / 720 420 / 420 240 / 240 Balance 720 / 720 420 / 420 240 / 240 Lab / Micro Data 07/08/24 06:31 07/14/24 05:10 Labs: Laboratory Results - last 24 hr 07/13/24 09:45: Sodium 134 L, Potassium 5.2 H, Chloride 105, Carbon Dioxide 26.0, Anion Gap 3 L, BUN 23 H, Creatinine 1.62 H, Estim Creat Clear Calc 35.05, Est GFR (MDRD) Af Amer 52 L, Est GFR (MDRD) Non-Af 43 L, BUN/Creatinine Ratio 14.2, Glucose 159 H, Calcium 7.9 L, Ammonia 48.0 H 07/13/24 09:56: Serum Osmolality 286 07/13/24 11:44: POC Glucose 111 H 07/13/24 17:30: Urine Osmolality 428, Ur Random Sodium 60 07/13/24 17:35: POC Glucose 239 H 07/13/24 23:06: POC Glucose 127 H 07/14/24 05:10: Sodium 136, Potassium 5.5 H, Chloride 106, Carbon Dioxide 27.0, Anion Gap 3 L, BUN 25 H, Creatinine 1.42 H, Estim Creat Clear Calc 39.98, Est GFR (MDRD) Af Amer 61, Est GFR (MDRD) Non-Af 51 L, BUN/Creatinine Ratio 17.6, Glucose 102, Calcium 8.2 L, Ammonia 15.0 07/14/24 06:03: POC Glucose 97 Micro: Microbiology 07/11/24 10:08 Nasal Secretion SARS-CoV-2 Antigen (Rapid) - Final Physical Exam Const Constitutional Narrative: awake. Oriented to person only today. Cooperative, not agitated. Orientation / Consciousness: confused HEENT head/scalp atraumatic HEENT Narrative: No scleral icterus. Eyes PERRL and EOMs intact bilaterally Resp normal respiratory effort, normal air movement and clear to auscultation bilaterally Effort and Inspection: Negative for tachypneic or respiratory distress Cardio regular rate, regular rhythm, S1 normal heart sound, S2 normal heart sound, no rub and no gallops Cardio Narrative: He has a 2/6 to 3/6 systolic ejection murmur heard at the second right intercostal space with radiation to the left ventricular outflow tract, lower left sternal border, apex and into the left axilla. No ectopy. GI GI Narrative: The abdomen is distended and tense. Bowel sounds are present in all 4 quadrants. There is pitting edema in the flanks. He did not guard with palpation. Extremity no calf tenderness Extremity Narrative: 4+ pitting edema of the lower extremities. Has gained 30 pounds over the past month. Skin Rashes: no rashes Neuro CN's II-XII intact bilaterally Neuro Narrative: Oriented to person only. No asterixis. Assessment & Plan Assessment/Plan (1) Debility: (2) Cirrhosis of liver: QUALIFIERS: Hepatic cirrhosis type: unspecified hepatic cirrhosis Ascites presence: with ascites Qualified Code(s): K74.60 - Unspecified cirrhosis of liver; R18.8 - Other ascites (3) Ascites: QUALIFIERS: Ascites type: other type Qualified Code(s): R18.8 - Other ascites (4) Aortic stenosis, severe: PLAN: Moderate to severe on echocardiogram within the past year. (5) Acute UTI: PLAN: On Omnicef, urine culture pending (6) Hyperammonemia: (7) Hepatic encephalopathy: (8) Portal hypertension: (9) Esophageal varices: QUALIFIERS: Esophageal varices type: secondary Esophageal varices bleeding: without bleeding Qualified Code(s): I85.10 - Secondary esophageal varices without bleeding (10) Essential (primary) hypertension: (11) Hyperlipidemia: QUALIFIERS: Hyperlipidemia type: unspecified Qualified Code(s): E 78.5 - Hyperlipidemia, unspecified (12) Diabetes mellitus: QUALIFIERS: Diabetes mellitus type: type 2 Diabetes mellitus terminal block assembler insulin use: unspecified terminal block assembler insulin use status (13) Cardiomyopathy: (14) Coronary artery disease: QUALIFIERS: Coronary Disease-Associated Artery/Lesion type: [place] artery [place] vs. 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 Continue therapy 2. Aldactone was placed on hold and he will be given Kayexalate today. Will continue the potassium restriction in the diet. Recheck BMP in the a.m. 3. May need to have a paracentesis. With severe aortic stenosis and cirrhosis with portal hypertension maintaining blood pressure and controlling ascites will be very difficult. Blood pressures are borderline low at times and this likely contributes to decreased cardiac output. He not only has marked ascites he has pitting edema both lower extremities. 4. Will increase Lasix to 40 mg daily and order accurate I&O and daily weights. His weight on 06/22/2024 was 161 pounds and the weight yesterday was 192 pounds and 14 ounces. His fluid intake is poor. 5. Orthostatic vital signs today 6. Pt is a full code. would like to schedulae a family meeting to discuss prognosis given multiple comorbidities and high probability of continued decline. Palliative? Hospice? Charges/Coding Visit Charges Inpatient E&M: 53280 SNF Subs L2
[2024-07-14] MEDS: Menthol/Lanolin/Calamine/Znox 113 GM Tube 1 APPLIC TOPICAL ×2 (09:51→21:59)
[2024-07-14] MEDS: Sodium Polystyrene Sulfonate 15 GM/60 ML UDC 30 GM PO (09:51)
[2024-07-14] MEDS: Cefdinir 300 MG Capsule PO ×2 (09:59→21:58)
[2024-07-14] MEDS: Furosemide 40 MG Tablet PO (09:59)
[2024-07-14] MEDS: Clopidogrel Bisulfate 75 MG Tablet PO (10:00)
[2024-07-14] MEDS: rifAXIMin 550 MG Tablet PO ×2 (10:01→22:00)
[2024-07-14] MEDS: Pantoprazole Sodium 40 MG Tablet PO ×2 (10:01→22:00)
--- NOTE | 2024-07-14 10:35 | CASEMGMT ---
BIMS (07/03) and PHQ2 (0) interviews completed on this date for MDS assessment. GENTRY Trevino
[2024-07-14] MEDS: Nystatin Powder 15gm Bottle 1 APPLIC TOPICAL ×2 (10:36→22:00)
[2024-07-14 12:01] LABS: Bedside Glucose 132 mg/dL (74-106)
[2024-07-14 13:07] VITALS: BP 104/71; BP 125/71; BP 126/81; PULSE 101; PULSE 45; PULSE 97
[2024-07-14] MEDS: Insulin Lispro 100 UNIT/ML INSULN.PEN 7 UNIT SC ×2 (13:10→17:41)
--- NOTE | 2024-07-14 16:37 | CASEMGMT ---
Social Work Family meeting held with pt's , pt's brother, physician and this SW. Physician explained pt's medical concerns with pt's and discussed goals of care moving forward. Palliative medicine and hospice services were discussed with pt's who will consider these options moving forward. Referrals not to be made at this time. SW will allow pt's time to process information and follow up with for desire for referrals to palliative or hospice at a later time. Emotional support provided to pt's family. GENTRY Trevino
[2024-07-14 17:48] LABS: Bedside Glucose 141 mg/dL (74-106)
[2024-07-14 21:32] VITALS: PULSE 86; RESP 18; O2SAT 98
[2024-07-14 21:42] LABS: Bedside Glucose 128 mg/dL (74-106)
[2024-07-14] MEDS: traZODone 50 MG Tablet PO (21:59)
[2024-07-14] MEDS: Atorvastatin Calcium 40 MG Tablet PO (21:59)
[2024-07-14] MEDS: MELATONIN 3 MG TABLET PO (21:59)
[2024-07-14] MEDS: Insulin Glargine-YFGN 100 UNIT/ML Pen 15 UNIT SC (22:01)
[2024-07-15 06:06] LABS: Absolute Lymphocyte Count 0.84 X10^3/uL (0.83-4.51); Absolute Neutrophil Count 2.7 X10^3/uL (2.0-7.7); Basophil# 0.04 X10^3/uL; Basophil% 0.9 % (0-1); Eosinophils% 4.5 % (0-5); Hematocrit 27.2 % (40-54); Hemoglobin 8.7 g/dL (13.0-16.5); Lymphocyte # 0.84 X10^3/ul (0.83-4.51); Lymphocyte % 18.9 % (19-41); Mean Corpuscular Hgb 29.8 pg (27.0-32.0); Mean Corpuscular Volume 93.2 fL (80-94); Mean Platelet Vol. 10.2 fl (6.2-12.0); Monocyte# 0.64 X10^3/uL; Monocyte% 14.4 % (0-10); NRBC Flagged by Analyzer 0 % (0-5); Neutrophil # 2.69 X10^3/uL (2.7-7.7); Neutrophil % 60.6 % (47-70); POSITIVE MORPHOLOGY YES; Platelet Count 162 K/mm3 (150-450); RBC Distribution Width CV 19.9 % (11.6-14.6); RBC Distribution Width SD 67.7 fl (35.1-43.9); Red Blood Count 2.92 M/mm3 (4.6-6.2); White Blood Count 4.4 K/mm3 (4.4-11.0)
[2024-07-15 06:39] LABS: Anion Gap 2 (5-15); BUN 27 mg/dL (7-18); Calcium,Total 8.6 mg/dL (8.5-10.1); Chloride 106 mmol/L (98-107); EST Glomerular Filtration Rate 47 mL/min (>60); Est Glom Filt Rate - Afr Amer 57 mL/min (>60); Estimated Creatinine Clearance 37.85 ml/min; Glucose 99 mg/dL (74-106); Magnesium 1.9 mg/dL (1.6-2.6); Potassium 4.8 mmol/L (3.5-5.1); Sodium Level 136 mmol/L (136-145)
[2024-07-15 06:56] LABS: Bedside Glucose 94 mg/dL (74-106)
[2024-07-15 07:11] LABS: Anisocytosis 1+
[2024-07-15 08:00] VITALS: BP 123/80; PULSE 85; RESP 18; TEMP 36.5; O2SAT 96
[2024-07-15] MEDS: Nystatin Powder 15gm Bottle 1 APPLIC TOPICAL ×2 (08:05→22:16)
[2024-07-15] MEDS: Pantoprazole Sodium 40 MG Tablet PO ×2 (08:05→22:17)
[2024-07-15] MEDS: Furosemide 40 MG Tablet PO (08:05)
[2024-07-15] MEDS: Midodrine HCl 5 MG Tablet 10 MG PO ×3 (08:05→17:20)
[2024-07-15] MEDS: Clopidogrel Bisulfate 75 MG Tablet PO (08:05)
[2024-07-15] MEDS: rifAXIMin 550 MG Tablet PO ×2 (08:05→22:17)
[2024-07-15] MEDS: Cefdinir 300 MG Capsule PO ×2 (08:05→22:18)
[2024-07-15] MEDS: Carvedilol 12.5 MG Tablet PO ×2 (08:05→17:20)
[2024-07-15] MEDS: Menthol/Lanolin/Calamine/Znox 113 GM Tube 1 APPLIC TOPICAL ×2 (08:06→22:16)
[2024-07-15] MEDS: 0.9% Saline Lock 10 ML Syringe IV (08:07)
[2024-07-15] MEDS: Tuberculin,Purif.prot.deriv. 50 TU/ML Vial 0.1 ML ID (10:46)
[2024-07-15 11:07] VITALS: O2SAT 99
--- NOTE | 2024-07-15 11:39 | NURSING ---
Spray Blender Note; MDS for07/14/2024 Complete
[2024-07-15 11:54] LABS: Bedside Glucose 171 mg/dL (74-106)
[2024-07-15] MEDS: Insulin Lispro 100 UNIT/ML INSULN.PEN 7 UNIT SC ×2 (12:08→17:20)
[2024-07-15 12:14] VITALS: BP 104/65; PULSE 77
--- NOTE | 2024-07-15 12:55 | NURSING ---
Patient taken down to ultrasound and paracentesis at this time.
--- NOTE | 2024-07-15 13:37 | PCM.OPRPT ---
Problems Associated Problem List Diagnoses (1) Ascites: Procedures Radiology Radiology US Procedures: 88506 Paracentesis Operative Report (Standard) Operative Information Date of Procedure: 07/15/24 Pre-Operative Diagnosis: Ascites Post-Operative Diagnosis: Ascites Surgery/Procedure Performed: Ultrasound-guided paracentesis director of slot operations: No Type of Anesthesia: Local Procedure Start Time: 13:29 Procedure Stop Time: 13:55 Select all DRAINS/GRAFTS/IMPLANTS that apply: None Estimated Blood Loss: 0 Specimen collected: No Description of surgery: PROCEDURE: Ultrasound guided paracentesis ORDERING PROVIDER: Dr. Sandhu INDICATION: Male, 84 years old. Abdominal ascites. PROVIDER: Kelsi Fulton CNP TECHNIQUE: The risks, benefits, and alternatives to the procedure were explained to the patient's . The specific risks of bleeding, infection, and damage to bowel were detailed and accepted. Witnessed informed consent was obtained. The abdomen was ultrasonographically surveyed. An appropriate pocket of fluid was identified in the left lower quadrant. The skin was prepped with chlorhexidine and sterile field established. 2% lidocaine was used for local anesthetic. Using ultrasound guidance, the peritoneal cavity was accessed with a 5-Vietnamese paracentesis needle/catheter system. The trocar was removed. A total of 5300 ml of clear yellow colored fluid was removed from the peritoneal cavity. The catheter was removed and a sterile dressing was applied. The procedure was well tolerated. IMPRESSION: Successful ultrasound guided paracentesis with left lower quadrant access site. Surgical Findings: Noncomplicated Complications Complications: No
--- NOTE | 2024-07-15 14:35 | NURSING ---
Patient returned from ultrasound and paracentesis. Ultrasound called report. Removed 5300ML of fluid from patient. Band aid in place to LLQ. May remove band aid tomorrow. Patient may shower tomorrow. VS stable. Patient returned to room, currently resting in bed in room. Call light in reach. Alarm in place.
--- NOTE | 2024-07-15 14:44 | CASEMGMT ---
Plan of care meeting held today with pt, pt's and pt's brother present. PT/OT/ST provided information on pt's progress with therapy. SW provided pt's with written communication on insurance process and copay coverage during stay. Discharge date has not been set at this time. Pt will continue with therapy as goal is for pt to reach maximum functional potential. Cognitive impairment may be a limiting factor. Pt's is able to state that she may not be able to care for pt at home and alternate placement may be needed. Pt's is also considering possible palliative or hospice referral. SW to continue to follow for dc planning and support. GENTRY Trevino
[2024-07-15 17:15] VITALS: PULSE 85; RESP 18; O2SAT 96
[2024-07-15 21:40] LABS: Bedside Glucose 189 mg/dL (74-106)
[2024-07-15] MEDS: traZODone 50 MG Tablet PO (22:17)
[2024-07-15] MEDS: Atorvastatin Calcium 40 MG Tablet PO (22:17)
[2024-07-15] MEDS: MELATONIN 3 MG TABLET PO (22:17)
[2024-07-15] MEDS: Insulin Glargine-YFGN 100 UNIT/ML Pen 15 UNIT SC (22:18)
[2024-07-16 06:00] VITALS: BMI 24.5
[2024-07-16 06:22] LABS: Bedside Glucose 92 mg/dL (74-106)
[2024-07-16] MEDS: Clopidogrel Bisulfate 75 MG Tablet PO (07:58)
[2024-07-16] MEDS: Furosemide 40 MG Tablet PO ×2 (07:58→13:39)
[2024-07-16] MEDS: Insulin Lispro 100 UNIT/ML INSULN.PEN 7 UNIT SC ×2 (07:58→12:41)
[2024-07-16] MEDS: Carvedilol 12.5 MG Tablet PO ×2 (07:58→17:48)
[2024-07-16] MEDS: Cefdinir 300 MG Capsule PO ×2 (07:58→20:23)
[2024-07-16] MEDS: Midodrine HCl 5 MG Tablet 10 MG PO ×3 (07:58→17:48)
[2024-07-16] MEDS: Pantoprazole Sodium 40 MG Tablet PO ×2 (07:58→20:24)
[2024-07-16] MEDS: Menthol/Lanolin/Calamine/Znox 113 GM Tube 1 APPLIC TOPICAL ×2 (07:59→20:26)
[2024-07-16] MEDS: rifAXIMin 550 MG Tablet PO ×2 (07:59→20:24)
[2024-07-16] MEDS: Nystatin Powder 15gm Bottle 1 APPLIC TOPICAL ×2 (07:59→20:26)
--- NOTE | 2024-07-16 09:43 | PCM.PROGNOTE ---
Subjective Subjective Afebrile Vital signs stable. No tachycardia no bradycardia. Maintaining appropriate oxygen saturation on room air He underwent paracentesis in radiology yesterday and a total of 5300 cc of clear yellow-colored fluid was removed. He tolerated the procedure well. Denies lightheadedness today. He also denies chest pain, shortness of breath, nausea/vomiting, abdominal pain. Fluid intake is poor, less than 1000 cc daily. He is incontinent of urine so intake and output are not accurate. Denies penile pain. Has pain in the flanks and in the LE's but, only with deep palpatin to determine the pitting. All lab drawn yesterday was personally reviewed. Hemoglobin is stable. Sodium is up to 136 and the potassium is down to 4.8. BUN is 27 and stable and the creatinine was 1.5 which is stable. Magnesium was 1.9. Objective Data Objective Data Vital Signs: Vital Signs Temp Pulse Resp BP Pulse Ox O2 Del Method 97.7 F L 85 18 104/65 96 Room Air 07/15/24 08:00 07/15/24 17:15 07/15/24 17:15 07/15/24 12:14 07/15/24 17:15 07/15/24 17:15 Oxygen Delivery Method Room Air Weight: 181 lb 12.8 oz Body Mass Index (BMI) 26.0 Intake & Output: Intake and Output for Last 24 Hours 07/14/24 07/15/24 07/16/24 23:59 23:59 23:59 Intake Total 720 / 720 830 / 830 240 / 240 Balance 720 / 720 830 / 830 240 / 240 Lab / Micro Data 07/15/24 05:15 07/15/24 05:15 Labs: Laboratory Results - last 24 hr 07/15/24 11:36: POC Glucose 171 H 07/15/24 21:08: POC Glucose 189 H 07/16/24 06:01: POC Glucose 92 Micro: Microbiology 07/11/24 10:08 Nasal Secretion SARS-CoV-2 Antigen (Rapid) - Final Physical Exam Const Constitutional Narrative: More alert today. He can tell me his name and he knew it was 2023 and he is at [facility]. He could not tell me the month. General Appearance: cooperative Resp normal respiratory effort and clear to auscultation bilaterally Effort and Inspection: Negative for tachypneic or labored Cardio regular rate, regular rhythm, no rub and no gallops GI GI Narrative: The abdomen is less firm today and the pitting in the flanks is also less. He still has 4+ pitting edema of the lower extremities. The edema of the foreskin is much improved today and the foreskin now is completely covering the glans. No erythema and no discharge from the penis. It was nontender to palpation today. Extremity Extremity Narrative: 4+ pitting edema bilaterally Assessment & Plan Assessment/Plan (1) Debility: (2) Cirrhosis of liver: QUALIFIERS: Hepatic cirrhosis type: unspecified hepatic cirrhosis Ascites presence: with ascites Qualified Code(s): K74.60 - Unspecified cirrhosis of liver; R18.8 - Other ascites (3) Ascites: QUALIFIERS: Ascites type: other type Qualified Code(s): R18.8 - Other ascites (4) Aortic stenosis, severe: (5) Acute UTI: (6) Hyperammonemia: (7) Hepatic encephalopathy: (8) Portal hypertension: (9) Esophageal varices: QUALIFIERS: Esophageal varices type: secondary Esophageal varices bleeding: without bleeding Qualified Code(s): I85.10 - Secondary esophageal varices without bleeding (10) Essential (primary) hypertension: (11) Hyperlipidemia: QUALIFIERS: Hyperlipidemia type: unspecified Qualified Code(s): E78.5 - Hyperlipidemia, unspecified (12) Diabetes mellitus: QUALIFIERS: Diabetes mellitus type: type 2 Diabetes mellitus alf insulin use: unspecified exterminator helper termite insulin use status (13) Cardiomyopathy: (14) Coronary artery disease: QUALIFIERS: Coronary Disease-Associated Artery/Lesion type: [place] artery [place] vs. 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 Fluid restrict to 1000 cc daily -I reviewed the EMR and he never drinks 1000 cc daily. Will reinforce with nursing that recording of intakes needs to be very strict in order to prevent reaccumulation of ascites. Weight yesterday was 181 pounds and 12 ounces which is up from 161 pounds on 06/22/2024. Lasix was increased from 20 mg daily to 40 mg daily a few days ago. Aldactone has been on hold due to hyperkalemia. He was placed on a potassium restricted diet. 2. Increase Lasix to twice daily. 3. Recheck a hemoglobin and a BMP in the AM. If the potassium stays within normal limits will likely restart Aldactone but at a decreased dose. He was previously taking 50 mg daily. 4. Blood sugars since yesterday morning have ranged from 92-1 89. He has had no hypoglycemia but the fasting blood sugars in the morning are in the 90s. He is receiving 15 units of glargine at at bedtime. He is also on 7 units of lispro 3 times daily AC. The lispro with breakfast is frequently being held. Will decrease the glargine to 12 units at at bedtime. Will decrease the lispro with breakfast to 3 units. Continue to monitor blood sugars before meals and at bedtime for another couple of days. Charges/Coding Visit Charges Inpatient E&M: 58436 Subs Hosp L2
[2024-07-16 11:10] VITALS: BP 100/62; PULSE 74; RESP 18; TEMP 36.4; O2SAT 99
[2024-07-16 11:26] LABS: Bedside Glucose 144 mg/dL (74-106)
[2024-07-16 12:47] VITALS: BP 99/59
[2024-07-16 16:36] LABS: Bedside Glucose 150 mg/dL (74-106)
[2024-07-16] MEDS: Acetaminophen 325 MG Tablet 650 MG PO ×2 (17:48→22:24)
[2024-07-16] MEDS: Insulin Lispro 100 UNIT/ML INSULN.PEN 8 UNIT SC (17:49)
[2024-07-16] MEDS: Atorvastatin Calcium 40 MG Tablet PO (20:24)
[2024-07-16] MEDS: MELATONIN 3 MG TABLET PO (20:25)
[2024-07-16] MEDS: traZODone 50 MG Tablet PO (20:25)
[2024-07-16 21:37] LABS: Bedside Glucose 170 mg/dL (74-106)
[2024-07-16] MEDS: Insulin Glargine-YFGN 100 UNIT/ML Pen 12 UNIT SC (22:13)
[2024-07-17] MEDS: Furosemide 40 MG Tablet PO ×2 (05:56→13:46)
[2024-07-17 06:00] VITALS: BMI 24.5
[2024-07-17 06:31] LABS: Hematocrit 25.3 % (40-54); Hemoglobin 8.2 g/dL (13.0-16.5)
[2024-07-17 06:37] LABS: Bedside Glucose 178 mg/dL (74-106)
[2024-07-17 06:37] LABS: Bedside Glucose 55 mg/dL (74-106)
[2024-07-17 07:02] LABS: Anion Gap 4 (5-15); BUN 27 mg/dL (7-18); Calcium,Total 8.1 mg/dL (8.5-10.1); Chloride 105 mmol/L (98-107); EST Glomerular Filtration Rate 47 mL/min (>60); Est Glom Filt Rate - Afr Amer 57 mL/min (>60); Estimated Creatinine Clearance 37.85 ml/min; Glucose 61 mg/dL (74-106); Potassium 4.4 mmol/L (3.5-5.1); Sodium Level 134 mmol/L (136-145)
[2024-07-17 07:21] LABS: Bedside Glucose 100 mg/dL (74-106)
[2024-07-17] MEDS: Cefdinir 300 MG Capsule PO ×2 (09:00→22:20)
[2024-07-17] MEDS: Insulin Lispro 100 UNIT/ML INSULN.PEN SC (09:00)
[2024-07-17] MEDS: Pantoprazole Sodium 40 MG Tablet PO ×2 (09:00→22:20)
[2024-07-17] MEDS: Clopidogrel Bisulfate 75 MG Tablet PO (09:00)
[2024-07-17] MEDS: Carvedilol 12.5 MG Tablet PO ×2 (09:00→16:47)
[2024-07-17] MEDS: Lactulose 20 GM/30 ML UDC PO (09:00)
[2024-07-17] MEDS: Midodrine HCl 5 MG Tablet 10 MG PO ×3 (09:00→16:47)
[2024-07-17] MEDS: rifAXIMin 550 MG Tablet PO ×2 (09:00→22:20)
[2024-07-17] MEDS: Menthol/Lanolin/Calamine/Znox 113 GM Tube 1 APPLIC TOPICAL ×2 (09:00→22:18)
[2024-07-17] MEDS: Nystatin Powder 15gm Bottle 1 APPLIC TOPICAL ×2 (09:00→22:18)
[2024-07-17 10:14] VITALS: BP 100/67; PULSE 84; RESP 18; TEMP 36.4; O2SAT 99
[2024-07-17 11:35] LABS: Bedside Glucose 104 mg/dL (74-106)
[2024-07-17] MEDS: Insulin Lispro 100 UNIT/ML INSULN.PEN 7 UNIT SC (12:35)
[2024-07-17 16:31] LABS: Bedside Glucose 162 mg/dL (74-106)
[2024-07-17] MEDS: Insulin Lispro 100 UNIT/ML INSULN.PEN 8 UNIT SC (16:47)
--- NOTE | 2024-07-17 21:43 | NURSING ---
Dr. Sandhu notified via secure backline text of patient initial HS gluose result 51 with recheck glucose result 72. Per Dr. Sandhu hold insulin glargine per order this HS.
[2024-07-17 21:54] LABS: Bedside Glucose 51 mg/dL (74-106)
[2024-07-17 21:57] LABS: Bedside Glucose 72 mg/dL (74-106)
[2024-07-17] MEDS: Atorvastatin Calcium 40 MG Tablet PO (22:20)
[2024-07-17] MEDS: traZODone 50 MG Tablet PO (22:20)
[2024-07-17] MEDS: MELATONIN 3 MG TABLET PO (22:20)
[2024-07-18 05:15] VITALS: BP 96/59; PULSE 74; RESP 16; O2SAT 98
[2024-07-18] MEDS: Furosemide 40 MG Tablet PO ×2 (05:19→13:10)
[2024-07-18 05:42] VITALS: PULSE 72; RESP 16; O2SAT 98
[2024-07-18] MEDS: 0.9% Saline Lock 10 ML Syringe IV (05:56)
[2024-07-18 06:00] VITALS: BMI 24.5
[2024-07-18 06:45] LABS: Bedside Glucose 91 mg/dL (74-106)
--- NOTE | 2024-07-18 06:53 | NURSING ---
Patient continues to c/o difficulty sleeping at times despite RTN Trazodone and melatonin. Written communication left for Dr. Sandhu.
[2024-07-18] MEDS: Nystatin Powder 15gm Bottle 1 APPLIC TOPICAL ×2 (07:52→19:51)
[2024-07-18] MEDS: Carvedilol 12.5 MG Tablet PO ×2 (07:52→17:23)
[2024-07-18] MEDS: Midodrine HCl 5 MG Tablet 10 MG PO ×3 (07:52→17:23)
[2024-07-18] MEDS: Clopidogrel Bisulfate 75 MG Tablet PO (07:53)
[2024-07-18] MEDS: Pantoprazole Sodium 40 MG Tablet PO ×2 (07:53→19:51)
[2024-07-18] MEDS: Menthol/Lanolin/Calamine/Znox 113 GM Tube 1 APPLIC TOPICAL ×2 (07:53→19:50)
[2024-07-18] MEDS: rifAXIMin 550 MG Tablet PO ×2 (07:53→19:51)
[2024-07-18] MEDS: Cefdinir 300 MG Capsule PO ×2 (07:53→19:51)
[2024-07-18 08:03] VITALS: BP 103/68; PULSE 85; O2SAT 96
[2024-07-18] MEDS: Insulin Lispro 100 UNIT/ML INSULN.PEN SC (09:11)
[2024-07-18 09:28] LABS: Bedside Glucose 177 mg/dL (74-106)
[2024-07-18 10:37] VITALS: RESP 16; TEMP 35.9
[2024-07-18 11:27] LABS: Bedside Glucose 173 mg/dL (74-106)
[2024-07-18] MEDS: Insulin Lispro 100 UNIT/ML INSULN.PEN 7 UNIT SC (12:08)
--- NOTE | 2024-07-18 16:00 | NURSING ---
THIS NURSE CALLED TO PT ROOM BY TALENT DEVELOPMENT SPECIALIST. PT HAVING SMALL AMOUNT OF BLOODY DISCHARGE FROM [facility]. AWARE AND STATED TO JUST KEEP AN EYE ON IT AND ANY WORSE TO NOTIFY HER. RN AWARE
[2024-07-18 16:49] LABS: Bedside Glucose 165 mg/dL (74-106)
[2024-07-18 17:28] VITALS: BP 111/75; PULSE 77
[2024-07-18] MEDS: Insulin Lispro 100 UNIT/ML INSULN.PEN 8 UNIT SC (17:45)
[2024-07-18] MEDS: MELATONIN 3 MG TABLET PO (19:51)
[2024-07-18] MEDS: traZODone 50 MG Tablet PO (19:51)
[2024-07-18] MEDS: Atorvastatin Calcium 40 MG Tablet PO (19:51)
[2024-07-18 23:13] LABS: Bedside Glucose 119 mg/dL (74-106)
[2024-07-19] MEDS: Furosemide 40 MG Tablet PO ×2 (05:27→13:25)
[2024-07-19 06:00] VITALS: BMI 24.3
[2024-07-19 06:25] LABS: Bedside Glucose 112 mg/dL (74-106)
[2024-07-19] MEDS: Midodrine HCl 5 MG Tablet 10 MG PO ×3 (07:50→16:39)
[2024-07-19] MEDS: Carvedilol 12.5 MG Tablet PO ×2 (07:51→16:39)
[2024-07-19] MEDS: Menthol/Lanolin/Calamine/Znox 113 GM Tube 1 APPLIC TOPICAL ×2 (07:52→19:59)
[2024-07-19] MEDS: Nystatin Powder 15gm Bottle 1 APPLIC TOPICAL ×2 (07:52→19:59)
[2024-07-19] MEDS: Insulin Lispro 100 UNIT/ML INSULN.PEN SC (07:52)
[2024-07-19] MEDS: Pantoprazole Sodium 40 MG Tablet PO ×2 (07:53→19:59)
[2024-07-19] MEDS: rifAXIMin 550 MG Tablet PO ×2 (07:53→19:59)
[2024-07-19] MEDS: Clopidogrel Bisulfate 75 MG Tablet PO (07:53)
[2024-07-19] MEDS: Cefdinir 300 MG Capsule PO ×2 (07:53→19:59)
[2024-07-19 07:58] VITALS: BP 110/67; PULSE 74; O2SAT 96
--- NOTE | 2024-07-19 08:48 | MDS.RN ---
Information for the MDS was obtained from review of the clinical record, interview of resident, staff, and direct observation of resident?s care.
--- NOTE | 2024-07-19 09:48 | CASEMGMT ---
Social Work Roberta RINALDI completed BIMS (07/03) and PHQ-2 () for MDS assessment on 07/14/24. JOHNATHON HolmW
[2024-07-19 11:44] LABS: Bedside Glucose 181 mg/dL (74-106)
[2024-07-19] MEDS: Insulin Lispro 100 UNIT/ML INSULN.PEN 7 UNIT SC (11:54)
--- NOTE | 2024-07-19 14:57 | CASEMGMT ---
Social Work SW met with patient, and brother at bedside. Introduced self and role. Following up from conversation with TANMAY and last week on palliative, hospice and DC destination. providing limited feedback. SW continued asking clarifying questions. did confirm she cannot take care of pt at home, unless he does signficant;y better and agreed to a SNF. can pay privately and knows friends who have been at [facility] SN[facility]. SW offered to place referral, but to provide a list of other providers including quality and resource data. agreed. SW provided further explanation about palliative and hospice. replied, well if he needs it. SW explained it would be a personal preference to elect the service. stated she would prefer palliative over hospice, but did not make a decision on a referral at this time. SW agreed and will continue to follow for DC planning. Provided with the SNF list in [facility]. [facility] JOHNATHON Holm
[2024-07-19 16:41] VITALS: BP 114/63; PULSE 66
[2024-07-19 16:54] LABS: Bedside Glucose 203 mg/dL (74-106)
[2024-07-19] MEDS: Insulin Lispro 100 UNIT/ML INSULN.PEN 8 UNIT SC (17:18)
[2024-07-19] MEDS: traZODone 50 MG Tablet PO (19:59)
[2024-07-19] MEDS: MELATONIN 3 MG TABLET PO (19:59)
[2024-07-19] MEDS: Atorvastatin Calcium 40 MG Tablet PO (19:59)
[2024-07-19 21:50] LABS: Bedside Glucose 114 mg/dL (74-106)
[2024-07-20] MEDS: Furosemide 40 MG Tablet PO ×2 (05:06→12:59)
[2024-07-20 06:00] VITALS: BMI 24.2
[2024-07-20 06:13] LABS: Bedside Glucose 149 mg/dL (74-106)
[2024-07-20] MEDS: Carvedilol 12.5 MG Tablet PO ×2 (07:57→16:46)
[2024-07-20] MEDS: Midodrine HCl 5 MG Tablet 10 MG PO ×3 (07:57→16:46)
[2024-07-20] MEDS: Lactulose 20 GM/30 ML UDC PO (07:57)
[2024-07-20] MEDS: Cefdinir 300 MG Capsule PO ×2 (07:58→21:10)
[2024-07-20] MEDS: Clopidogrel Bisulfate 75 MG Tablet PO (07:59)
[2024-07-20] MEDS: Pantoprazole Sodium 40 MG Tablet PO ×2 (07:59→21:10)
[2024-07-20] MEDS: rifAXIMin 550 MG Tablet PO ×2 (07:59→21:11)
[2024-07-20] MEDS: Menthol/Lanolin/Calamine/Znox 113 GM Tube 1 APPLIC TOPICAL ×2 (08:00→21:11)
[2024-07-20] MEDS: Insulin Lispro 100 UNIT/ML INSULN.PEN SC (08:01)
[2024-07-20] MEDS: Nystatin Powder 15gm Bottle 1 APPLIC TOPICAL ×2 (08:01→21:11)
[2024-07-20 11:48] LABS: Bedside Glucose 162 mg/dL (74-106)
[2024-07-20] MEDS: Insulin Lispro 100 UNIT/ML INSULN.PEN 7 UNIT SC (12:55)
[2024-07-20 16:00] VITALS: BP 117/70; PULSE 70; RESP 16; TEMP 35.8; O2SAT 98
[2024-07-20] MEDS: Insulin Lispro 100 UNIT/ML INSULN.PEN 8 UNIT SC (16:46)
[2024-07-20 17:35] LABS: Bedside Glucose 180 mg/dL (74-106)
[2024-07-20] MEDS: traZODone 50 MG Tablet PO (21:10)
[2024-07-20] MEDS: MELATONIN 3 MG TABLET PO (21:10)
[2024-07-20] MEDS: Atorvastatin Calcium 40 MG Tablet PO (21:11)
[2024-07-20 21:30] LABS: Bedside Glucose 114 mg/dL (74-106)
[2024-07-21 05:02] VITALS: BP 99/53; PULSE 69; RESP 16
[2024-07-21] MEDS: Furosemide 40 MG Tablet PO ×2 (05:02→13:27)
[2024-07-21 06:04] LABS: Bedside Glucose 129 mg/dL (74-106)
[2024-07-21 07:00] VITALS: BMI 25.2
[2024-07-21] MEDS: Carvedilol 12.5 MG Tablet PO ×2 (08:03→17:22)
[2024-07-21] MEDS: Midodrine HCl 5 MG Tablet 10 MG PO ×3 (08:03→17:23)
[2024-07-21] MEDS: Insulin Lispro 100 UNIT/ML INSULN.PEN SC (08:04)
[2024-07-21] MEDS: Menthol/Lanolin/Calamine/Znox 113 GM Tube 1 APPLIC TOPICAL ×2 (08:05→21:12)
[2024-07-21] MEDS: Cefdinir 300 MG Capsule PO (08:06)
[2024-07-21] MEDS: Pantoprazole Sodium 40 MG Tablet PO ×2 (08:06→21:14)
[2024-07-21] MEDS: Clopidogrel Bisulfate 75 MG Tablet PO (08:06)
[2024-07-21] MEDS: rifAXIMin 550 MG Tablet PO ×2 (08:06→21:14)
[2024-07-21] MEDS: Nystatin Powder 15gm Bottle 1 APPLIC TOPICAL ×2 (08:06→21:13)
[2024-07-21 08:10] VITALS: BP 104/64; PULSE 72; RESP 18; O2SAT 98
[2024-07-21 08:20] VITALS: BMI 24.2
--- NOTE | 2024-07-21 08:22 | NURSING ---
FIRST WEIGHT DONE BY CAPTAIN FISHING VESSEL TODAY, THIS NURSE HAD CAPTAIN FISHING VESSEL REWEIGH PT WITH NURSE PRESENT DO TO A WEIGHT INCREASE TO BE SURE IT WAS CORRECT. NEW WEIGHT NOW CORRECT.
[2024-07-21 11:00] VITALS: PULSE 71; RESP 18; O2SAT 95
[2024-07-21 11:29] LABS: Bedside Glucose 162 mg/dL (74-106)
[2024-07-21 11:37] VITALS: TEMP 36.3
[2024-07-21] MEDS: Insulin Lispro 100 UNIT/ML INSULN.PEN 7 UNIT SC (11:53)
[2024-07-21 16:49] LABS: Bedside Glucose 173 mg/dL (74-106)
[2024-07-21 17:25] VITALS: BP 110/68; PULSE 76
[2024-07-21] MEDS: Insulin Lispro 100 UNIT/ML INSULN.PEN 8 UNIT SC (17:37)
[2024-07-21] MEDS: traZODone 50 MG Tablet PO (21:13)
[2024-07-21] MEDS: Atorvastatin Calcium 40 MG Tablet PO (21:13)
[2024-07-21] MEDS: MELATONIN 3 MG TABLET PO (21:13)
[2024-07-21 21:39] LABS: Bedside Glucose 134 mg/dL (74-106)
[2024-07-21] MEDS: Acetaminophen 325 MG Tablet 650 MG PO (22:56)
[2024-07-22 04:55] VITALS: BP 116/63; PULSE 60
[2024-07-22] MEDS: Furosemide 40 MG Tablet PO ×2 (04:59→13:47)
[2024-07-22 06:00] LABS: Absolute Lymphocyte Count 0.86 X10^3/uL (0.83-4.51); Absolute Neutrophil Count 1.8 X10^3/uL (2.0-7.7); Basophil# 0.07 X10^3/uL; Eosinophil# 0.21 X10^3/uL; Hematocrit 27.7 % (40-54); Hemoglobin 8.7 g/dL (13.0-16.5); Lymphocyte # 0.86 X10^3/ul (0.83-4.51); Lymphocyte % 24.5 % (19-41); Mean Corp Hgb Conc 31.4 g/dL (32-36); Mean Corpuscular Hgb 28.9 pg (27.0-32.0); Mean Platelet Vol. 9.9 fl (6.2-12.0); Monocyte# 0.56 X10^3/uL; NRBC Flagged by Analyzer 0 % (0-5); Neutrophil % 51.2 % (47-70); POSITIVE MORPHOLOGY YES; Platelet Count 172 K/mm3 (150-450); RBC Distribution Width CV 19.8 % (11.6-14.6); RBC Distribution Width SD 65.5 fl (35.1-43.9); Red Blood Count 3.01 M/mm3 (4.6-6.2); White Blood Count 3.5 K/mm3 (4.4-11.0)
[2024-07-22 06:23] LABS: Anion Gap 5 (5-15); BUN 33 mg/dL (7-18); BUN/Creat Ratio 18.5 RATIO (10-20); Calcium,Total 8.2 mg/dL (8.5-10.1); Chloride 104 mmol/L (98-107); Creatinine, Serum 1.78 mg/dL (0.70-1.30); EST Glomerular Filtration Rate 39 mL/min (>60); Est Glom Filt Rate - Afr Amer 47 mL/min (>60); Glucose 139 mg/dL (74-106); Potassium 3.9 mmol/L (3.5-5.1); Sodium Level 135 mmol/L (136-145)
[2024-07-22 06:27] LABS: Bedside Glucose 132 mg/dL (74-106)
[2024-07-22 06:28] LABS: Differential Indicated SCAN CRITERIA MET
[2024-07-22] MEDS: Clopidogrel Bisulfate 75 MG Tablet PO (07:46)
[2024-07-22] MEDS: Midodrine HCl 5 MG Tablet 10 MG PO ×3 (07:46→17:44)
[2024-07-22] MEDS: rifAXIMin 550 MG Tablet PO ×2 (07:47→20:28)
[2024-07-22] MEDS: Menthol/Lanolin/Calamine/Znox 113 GM Tube 1 APPLIC TOPICAL ×2 (07:47→20:29)
[2024-07-22] MEDS: Nystatin Powder 15gm Bottle 1 APPLIC TOPICAL ×2 (07:47→20:28)
[2024-07-22] MEDS: Carvedilol 12.5 MG Tablet PO ×2 (07:47→17:44)
[2024-07-22] MEDS: Pantoprazole Sodium 40 MG Tablet PO ×2 (07:47→20:28)
[2024-07-22] MEDS: Insulin Lispro 100 UNIT/ML INSULN.PEN SC (07:56)
[2024-07-22 07:57] LABS: Anisocytosis 1+; Hypersegmented Neutrophils 1+
[2024-07-22 07:58] LABS: Ovalocyte 1+; Polychromasia 1+; Target Cells 1+
[2024-07-22 07:59] LABS: Schistocytes 1+
[2024-07-22 08:00] VITALS: BP 90/60; PULSE 87; RESP 18; TEMP 36.8; O2SAT 96
--- NOTE | 2024-07-22 08:15 | CASEMGMT ---
Addendum entered by Zelda Acosta 07/22/24 10:19: SW left VM with on [facility] acceptance. Original Note: Social Work SW spoke with Dina at [facility] and they can accept pt. SW to update . IDT to discuss DC date. Zelda Acosta, OUTREACH ASSOCIATE STAVE JOINTER
[2024-07-22 10:45] VITALS: PULSE 87; RESP 18; O2SAT 96
[2024-07-22 11:35] LABS: Bedside Glucose 163 mg/dL (74-106)
[2024-07-22] MEDS: Insulin Lispro 100 UNIT/ML INSULN.PEN 7 UNIT SC (12:00)
[2024-07-22 12:07] VITALS: BP 96/62; PULSE 67
[2024-07-22 17:27] LABS: Bedside Glucose 175 mg/dL (74-106)
[2024-07-22] MEDS: Insulin Lispro 100 UNIT/ML INSULN.PEN 8 UNIT SC (17:44)
[2024-07-22 17:49] VITALS: BP 126/76; PULSE 77
[2024-07-22] MEDS: MELATONIN 3 MG TABLET PO (20:29)
[2024-07-22] MEDS: traZODone 50 MG Tablet PO (20:29)
[2024-07-22] MEDS: Atorvastatin Calcium 40 MG Tablet PO (20:29)
[2024-07-22] MEDS: Acetaminophen 325 MG Tablet 650 MG PO (20:32)
[2024-07-22 21:36] LABS: Bedside Glucose 150 mg/dL (74-106)
[2024-07-23 05:54] VITALS: BP 95/59; PULSE 64
[2024-07-23] MEDS: Furosemide 40 MG Tablet PO ×2 (05:59→15:14)
[2024-07-23 06:00] VITALS: BMI 24.3
[2024-07-23 06:34] LABS: Bedside Glucose 137 mg/dL (74-106)
[2024-07-23 08:00] VITALS: BP 92/66; PULSE 82; RESP 16; TEMP 36.4; O2SAT 95
[2024-07-23] MEDS: Carvedilol 12.5 MG Tablet PO ×2 (08:21→17:51)
[2024-07-23] MEDS: Pantoprazole Sodium 40 MG Tablet PO ×2 (08:21→21:16)
[2024-07-23] MEDS: Lactulose 20 GM/30 ML UDC PO (08:21)
[2024-07-23] MEDS: Midodrine HCl 5 MG Tablet 10 MG PO ×3 (08:21→17:50)
[2024-07-23] MEDS: rifAXIMin 550 MG Tablet PO ×2 (08:21→21:16)
[2024-07-23] MEDS: Acetaminophen 325 MG Tablet 650 MG PO ×2 (08:21→21:21)
[2024-07-23] MEDS: Clopidogrel Bisulfate 75 MG Tablet PO (08:21)
[2024-07-23] MEDS: Menthol/Lanolin/Calamine/Znox 113 GM Tube 1 APPLIC TOPICAL ×2 (08:22→21:15)
[2024-07-23] MEDS: Nystatin Powder 15gm Bottle 1 APPLIC TOPICAL ×2 (08:22→21:15)
[2024-07-23] MEDS: Insulin Lispro 100 UNIT/ML INSULN.PEN SC (08:22)
[2024-07-23 08:30] VITALS: PULSE 82; RESP 16; O2SAT 95
[2024-07-23 11:59] LABS: Bedside Glucose 260 mg/dL (74-106)
[2024-07-23 12:20] VITALS: BP 90/54
[2024-07-23] MEDS: Insulin Lispro 100 UNIT/ML INSULN.PEN 7 UNIT SC (12:27)
[2024-07-23 16:43] LABS: Bedside Glucose 253 mg/dL (74-106)
[2024-07-23] MEDS: Insulin Lispro 100 UNIT/ML INSULN.PEN 8 UNIT SC (17:51)
[2024-07-23 17:57] VITALS: BP 105/62; PULSE 69
[2024-07-23] MEDS: Atorvastatin Calcium 40 MG Tablet PO (21:16)
[2024-07-23] MEDS: MELATONIN 3 MG TABLET PO (21:16)
[2024-07-23] MEDS: traZODone 50 MG Tablet PO (21:16)
[2024-07-23 22:00] LABS: Bedside Glucose 126 mg/dL (74-106)
[2024-07-23] MEDS: Oseltamivir Phosphate 30 MG Capsule PO (22:28)
[2024-07-24] MEDS: Furosemide 40 MG Tablet PO ×2 (05:32→13:09)
[2024-07-24 05:34] VITALS: BP 102/63; PULSE 59; RESP 17; TEMP 36.3; O2SAT 97
[2024-07-24 06:00] VITALS: BMI 23.6
[2024-07-24 06:08] LABS: Bedside Glucose 157 mg/dL (74-106)
[2024-07-24 07:54] VITALS: BP 108/64; PULSE 57; RESP 18; TEMP 36.7; O2SAT 96
[2024-07-24] MEDS: Pantoprazole Sodium 40 MG Tablet PO ×2 (07:56→21:44)
[2024-07-24] MEDS: Clopidogrel Bisulfate 75 MG Tablet PO (07:56)
[2024-07-24] MEDS: Carvedilol 12.5 MG Tablet PO ×2 (07:56→17:44)
[2024-07-24] MEDS: rifAXIMin 550 MG Tablet PO ×2 (07:56→21:45)
[2024-07-24] MEDS: Midodrine HCl 5 MG Tablet 10 MG PO ×3 (07:56→17:44)
[2024-07-24] MEDS: Nystatin Powder 15gm Bottle 1 APPLIC TOPICAL ×2 (07:57→21:46)
[2024-07-24] MEDS: Menthol/Lanolin/Calamine/Znox 113 GM Tube 1 APPLIC TOPICAL ×2 (07:57→21:44)
[2024-07-24] MEDS: Insulin Lispro 100 UNIT/ML INSULN.PEN SC (07:58)
[2024-07-24 10:00] VITALS: RESP 16
[2024-07-24 12:03] LABS: Bedside Glucose 219 mg/dL (74-106)
[2024-07-24] MEDS: Insulin Lispro 100 UNIT/ML INSULN.PEN 7 UNIT SC (13:09)
[2024-07-24 16:55] LABS: Bedside Glucose 225 mg/dL (74-106)
[2024-07-24] MEDS: Insulin Lispro 100 UNIT/ML INSULN.PEN 8 UNIT SC (17:43)
[2024-07-24 21:40] LABS: Bedside Glucose 96 mg/dL (74-106)
[2024-07-24] MEDS: traZODone 50 MG Tablet PO (21:44)
[2024-07-24] MEDS: MELATONIN 3 MG TABLET PO (21:44)
[2024-07-24] MEDS: Atorvastatin Calcium 40 MG Tablet PO (21:44)
[2024-07-24] MEDS: Oseltamivir Phosphate 30 MG Capsule PO (21:45)
[2024-07-25] VITALS (7 sets, daily range): BP systolic 85–103; BP diastolic 43–79; PULSE 68–78; RESP 18; TEMP 36.6; O2SAT 97–98; BMI 24.4
[2024-07-25 06:10] LABS: Bedside Glucose 153 mg/dL (74-106)
[2024-07-25] MEDS: Midodrine HCl 5 MG Tablet 10 MG PO ×3 (07:47→17:58)
[2024-07-25] MEDS: rifAXIMin 550 MG Tablet PO ×2 (07:47→20:50)
[2024-07-25] MEDS: Nystatin Powder 15gm Bottle 1 APPLIC TOPICAL ×2 (07:47→20:49)
[2024-07-25] MEDS: Clopidogrel Bisulfate 75 MG Tablet PO (07:47)
[2024-07-25] MEDS: Pantoprazole Sodium 40 MG Tablet PO ×2 (07:47→20:49)
[2024-07-25] MEDS: Insulin Lispro 100 UNIT/ML INSULN.PEN SC (07:48)
[2024-07-25] MEDS: Menthol/Lanolin/Calamine/Znox 113 GM Tube 1 APPLIC TOPICAL ×2 (07:48→20:47)
[2024-07-25] MEDS: Insulin Lispro 100 UNIT/ML INSULN.PEN 7 UNIT SC (11:53)
[2024-07-25 12:01] LABS: Bedside Glucose 208 mg/dL (74-106)
[2024-07-25] MEDS: Acetaminophen 325 MG Tablet 650 MG PO ×2 (13:14→22:44)
[2024-07-25 13:19] LABS: Pathologist Review Reviewed
[2024-07-25] MEDS: Furosemide 40 MG Tablet PO (14:31)
[2024-07-25 16:46] LABS: Bedside Glucose 217 mg/dL (74-106)
[2024-07-25] MEDS: Carvedilol 12.5 MG Tablet PO (17:57)
[2024-07-25] MEDS: Insulin Lispro 100 UNIT/ML INSULN.PEN 8 UNIT SC (17:58)
[2024-07-25] MEDS: Atorvastatin Calcium 40 MG Tablet PO (20:48)
[2024-07-25] MEDS: traZODone 50 MG Tablet PO (20:48)
[2024-07-25] MEDS: MELATONIN 3 MG TABLET PO (20:49)
[2024-07-25] MEDS: Oseltamivir Phosphate 30 MG Capsule PO (20:50)
[2024-07-25 21:32] LABS: Bedside Glucose 172 mg/dL (74-106)
[2024-07-26 05:07] VITALS: BP 99/59; PULSE 60
[2024-07-26] MEDS: Furosemide 40 MG Tablet PO ×2 (05:15→13:11)
[2024-07-26 06:00] VITALS: BMI 24.5
[2024-07-26 06:21] VITALS: PULSE 64; O2SAT 96
[2024-07-26 06:33] LABS: Bedside Glucose 193 mg/dL (74-106)
[2024-07-26] MEDS: Insulin Lispro 100 UNIT/ML INSULN.PEN SC (08:07)
[2024-07-26] MEDS: Carvedilol 12.5 MG Tablet PO ×2 (08:08→18:13)
[2024-07-26] MEDS: Midodrine HCl 5 MG Tablet 10 MG PO ×3 (08:08→18:13)
[2024-07-26] MEDS: Nystatin Powder 15gm Bottle 1 APPLIC TOPICAL ×2 (08:09→22:00)
[2024-07-26] MEDS: Menthol/Lanolin/Calamine/Znox 113 GM Tube 1 APPLIC TOPICAL ×2 (08:09→21:59)
[2024-07-26] MEDS: Lactulose 20 GM/30 ML UDC PO (08:09)
[2024-07-26] MEDS: Clopidogrel Bisulfate 75 MG Tablet PO (08:10)
[2024-07-26] MEDS: Pantoprazole Sodium 40 MG Tablet PO ×2 (08:11→22:01)
[2024-07-26] MEDS: rifAXIMin 550 MG Tablet PO ×2 (08:11→22:01)
[2024-07-26] MEDS: guaiFENesin Dm 10 ML UDC PO ×2 (08:19→22:02)
[2024-07-26 08:25] VITALS: BP 104/66; PULSE 68; RESP 18; O2SAT 92
[2024-07-26 11:23] LABS: Bedside Glucose 272 mg/dL (74-106)
[2024-07-26] MEDS: Insulin Lispro 100 UNIT/ML INSULN.PEN 7 UNIT SC (11:56)
[2024-07-26 13:15] VITALS: BP 104/61; PULSE 64
--- NOTE | 2024-07-26 14:11 | NURSING ---
UPDATED FAMILY ON MED CHANGES AND TESTS.
--- NOTE | 2024-07-26 14:21 | CASEMGMT ---
Social Work IDT is ready to set DC date for pt. SW requested date preference with [facility]. Will await outcome and speak with to finalize. Zelda Acosta, HEALTH CARE ATTORNEY CELLOPHANER
[2024-07-26 14:53] VITALS: TEMP 36.4
[2024-07-26 17:39] LABS: Bedside Glucose 159 mg/dL (74-106)
[2024-07-26] MEDS: Insulin Lispro 100 UNIT/ML INSULN.PEN 8 UNIT SC (18:11)
[2024-07-26 18:16] VITALS: BP 132/76; PULSE 63
[2024-07-26] MEDS: traZODone 50 MG Tablet PO (22:00)
[2024-07-26] MEDS: Atorvastatin Calcium 40 MG Tablet PO (22:00)
[2024-07-26] MEDS: Oseltamivir Phosphate 30 MG Capsule PO (22:01)
[2024-07-26] MEDS: Acetaminophen 325 MG Tablet 650 MG PO (22:02)
[2024-07-26 22:08] LABS: Bedside Glucose 91 mg/dL (74-106)
[2024-07-27 05:39] VITALS: BP 110/58; PULSE 58
[2024-07-27] MEDS: Furosemide 40 MG Tablet PO ×2 (05:44→13:49)
[2024-07-27 06:00] VITALS: BMI 24.3
[2024-07-27 06:21] LABS: Bedside Glucose 149 mg/dL (74-106)
[2024-07-27] MEDS: Insulin Lispro 100 UNIT/ML INSULN.PEN SC (07:41)
[2024-07-27] MEDS: Carvedilol 12.5 MG Tablet PO ×2 (07:43→17:43)
[2024-07-27] MEDS: Nystatin Powder 15gm Bottle 1 APPLIC TOPICAL ×2 (07:43→22:54)
[2024-07-27] MEDS: Midodrine HCl 5 MG Tablet 10 MG PO ×3 (07:43→17:43)
[2024-07-27] MEDS: Menthol/Lanolin/Calamine/Znox 113 GM Tube 1 APPLIC TOPICAL ×2 (07:43→22:53)
[2024-07-27] MEDS: Clopidogrel Bisulfate 75 MG Tablet PO (07:44)
[2024-07-27] MEDS: rifAXIMin 550 MG Tablet PO ×2 (07:44→22:55)
[2024-07-27] MEDS: Pantoprazole Sodium 40 MG Tablet PO ×2 (07:44→22:54)
[2024-07-27 07:52] VITALS: BP 106/63; PULSE 77; RESP 16; O2SAT 96
[2024-07-27] MEDS: Insulin Lispro 100 UNIT/ML INSULN.PEN 7 UNIT SC (11:44)
[2024-07-27 11:50] LABS: Bedside Glucose 198 mg/dL (74-106)
--- NOTE | 2024-07-27 13:18 | CASEMGMT ---
Addendum entered by Zelda Acosta 07/29/24 16:29: PASRR Level II results received - rule out. Pt can DC as planned. SW updated [facility]. Original Note: Social Work SW spoke with [facility] about DC date for pt. [facility] prefers 08/01. SW spoke with pt, and brother at bedside. Discussed setting DC date for 08/01 to [facility]. All parties in agreement. Confirmed with [facility]. PASRR completed and d/t dx of hepatic encephalopathy, pt triggered for Level II, further evaluation. Pt cannot DC until results are received, which has been communicated to staff and [facility]. Scheduled w/c transport through [facility] for 1200. Plan: DC 08/01 pending approval of PASRR results, to [facility], intermediate, private pay, part B therapies Zelda Acosta, JOHNATHON RINALDI
[2024-07-27 13:52] VITALS: BP 104/66; PULSE 63
[2024-07-27 16:00] VITALS: TEMP 36.7
[2024-07-27 17:08] LABS: Bedside Glucose 175 mg/dL (74-106)
[2024-07-27] MEDS: Insulin Lispro 100 UNIT/ML INSULN.PEN 8 UNIT SC (17:41)
[2024-07-27 17:45] VITALS: BP 122/75; PULSE 72
--- NOTE | 2024-07-27 19:14 | PCM.DC.SUM ---
Providers Date of Admission: 07/07/24 Primary Care Physician: Dr. Peng Elder MD Reason For Visit: INCREASED WEAKNESS, DARK STOOLS Diagnosis Discharge Diagnosis (1) Debility: Status: Acute Code(s): R53.81 - Other malaise (2) Cirrhosis of liver: Status: Acute Code(s): K74.60 - Unspecified cirrhosis of liver Qualifiers: Hepatic cirrhosis type: unspecified hepatic cirrhosis Ascites presence: with ascites Qualified Code(s): K74.60 - Unspecified cirrhosis of liver; R18.8 - Other ascites (3) Ascites: Status: Acute Code(s): R18.8 - Other ascites Qualifiers: Ascites type: other type Qualified Code(s): R18.8 - Other ascites (4) Aortic stenosis, severe: Status: Chronic Code(s): I35.0 - Nonrheumatic aortic (valve) stenosis (5) Acute UTI: Status: Inactive Code(s): N39.0 - Urinary tract infection, site not specified (6) Hyperammonemia: Status: Acute Code(s): E72.20 - Disorder of urea cycle metabolism, unspecified (7) Hepatic encephalopathy: Status: Acute Code(s): K76.82 - Hepatic encephalopathy (8) Portal hypertension: Status: Acute Code(s): K76.6 - Portal hypertension (9) Esophageal varices: Status: Acute Code(s): I85.00 - Esophageal varices without bleeding Qualifiers: Esophageal varices type: secondary Esophageal varices bleeding: without bleeding Qualified Code(s): I85.10 - Secondary esophageal varices without bleeding (10) Essential (primary) hypertension: Status: Acute Code(s): I10 - Essential (primary) hypertension (11) Hyperlipidemia: Status: Acute Code(s): E78.5 - Hyperlipidemia, unspecified Qualifiers: Hyperlipidemia type: unspecified Qualified Code(s): E78.5 - Hyperlipidemia, unspecified (12) Diabetes mellitus: Status: Acute Code(s): E11.9 - Type 2 diabetes mellitus without complications Qualifiers: Diabetes mellitus type: type 2 Diabetes mellitus terminal supervisor insulin use: unspecified terminal supervisor insulin use status (13) Cardiomyopathy: Status: Chronic Code(s): I42.9 - Cardiomyopathy, unspecified (14) Coronary artery disease: Status: Chronic Code(s): I25.10 - Atherosclerotic heart disease of [place] coronary artery without angina pectoris Qualifiers: Coronary Disease-Associated Artery/Lesion type: [place] artery [place] vs. 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 Debility - PT/OT. Cognition - ST. Pain - monitor. Bowel - Dulcolax 10mg pr daily prn, Magnesium citrate 150mL po x 1 prn, MOM 30ml daily prn. Adult immunization - Administer pneumonia vaccine, covid vaccine, flu vaccine as appropriate. DVT prophylaxis - Hold, GI bleed. Hyperlipidemia - Atorvastatin 20mg qhs. Coronary artery disease s/p stent - Coreg 12.5mg bid, Plavix 75mg daily. Esophageal varices - Coreg 12.5mg bid. Ascites - Midodrine 10mg tidcm, Furosemide 20mg daily, Aldactone 50mg daily, no paracentesis 2/2 Plavix. Diabetes Mellitus II - Glyburide 5mg bid, Glargine 10 units daily. Insomnia - Melatonin 3mg qhs prn. Skin irritation - Calmoseptine topical bid. Tinea corporis - Nystatin powder topical bid. Duodenal angiodysplasia - Pantoprazole 40mg bid. Hepatic encephalopathy - Xifaxan 550mg po bid. Medications at Discharge Home Medications clopidogrel 75 mg tablet 75 mg PO DAILY Anticoagulant 06/29/24 pantoprazole 40 mg tablet,delayed release 40 mg PO BID GERD 06/29/24 rosuvastatin 20 mg tablet 20 mg PO DAILY Cholesterol 06/29/24 carvedilol 12.5 mg tablet 12.5 mg PO BID Heart #0 tabs 07/07/24 midodrine 5 mg tablet 10 mg (2 x 5 mg) PO TIDCM Low blood pressure #0 tabs 07/07/24 rifaximin 550 mg tablet (Xifaxan) 550 mg PO BID IBS #0 tabs 07/07/24 acetaminophen 325 mg tablet 650 mg (2 x 325 mg) PO Q4H PRN PRN pain #0 tabs 07/27/24 dextromethorphan-guaifenesin 10 mg-100 mg/5 mL oral syrup 10 ml PO Q6H PRN PRN Cough/Congestion #0 mL 07/27/24 furosemide 40 mg tablet 40 mg PO BIDLX #0 tabs 07/27/24 insulin lispro 100 unit/mL subcutaneous pen (Humalog KwikPen (U-100) Insulin) 3 unit (0.03 mL) subcut BREAKFAST #0 mL 07/27/24 insulin lispro 100 unit/mL subcutaneous pen (Humalog KwikPen (U-100) Insulin) 7 unit (0.07 mL) subcut LUNCH #0 mL 07/27/24 insulin lispro 100 unit/mL subcutaneous pen (Humalog KwikPen (U-100) Insulin) 8 unit (0.08 mL) subcut SUPPER #0 mL 07/27/24 lactulose 20 gram/30 mL oral solution 20 g (30 mL) PO Q72H #0 mL 07/27/24 menthol 0.44 %-zinc oxide 20.6 % topical ointment (Calmoseptine) 1 applic topical BID #0 grams 07/27/24 nystatin 100,000 unit/gram topical powder (Nyamyc) 1 applic topical BID #0 grams 07/27/24 trazodone 50 mg tablet 50 mg PO QHS #0 tabs 07/27/24 Hospital Course Operations None Procedures Paracentesis Summary of Care Provided Minutes Spent on Discharge: 35 Hospital Course: 84 year old male with below past medical history hospitalized for upper gastrointestinal 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 07/15/2025 Kelsi Fulton performed paracentesis removing 5300mL clear yellow fluid. Discharge 08/01/2024 pending approval of PASRR results, to [facility], [facility], private pay, part B therapies. Physical Exam Const alert General Appearance: cooperative HEENT normocephalic Eyes PERRL and EOMs intact bilaterally Neck supple, no JVD and no carotid bruits Resp normal respiratory effort, normal air movement and clear to auscultation bilaterally Cardio regular rate and regular rhythm GI normal to inspection, nondistended, normoactive bowel sounds, non-tender and non-distended Extremity normal capillary refill General Extremity: Negative for edema Skin no rashes or lesions noted General Skin Exam: no breakdown Psych affect normal Appearance: appropriate Weight / BMI Weight Weight: 76.793 kg Body Mass Index (BMI) 24.3 ABG / Lab / Microbiology Data 07/22/24 05:11 07/22/24 05:11 Laboratory: Laboratory Results - last 24 hr 07/26/24 21:29: POC Glucose 91 07/27/24 05:45: POC Glucose 149 H 07/27/24 11:14: POC Glucose 198 H 07/27/24 16:20: POC Glucose 175 H Microbiology: Microbiology 07/26/24 09:45 Mucosa - Nasopharyngeal Respiratory Panel (PCR) - Final 07/26/24 07:35 Nasal Secretion SARS-CoV-2 Antigen (Rapid) - Final 07/11/24 10:08 Nasal Secretion SARS-CoV-2 Antigen (Rapid) - Final D/C Instructions Discharge Diet: 6 Cup Fluid Restriction Discharge Activity: Return to Normal Activity, May Shower and Use Walker Weight Bearing Status: Weight bearing as tolerated Call your doctor if you observe: Fever of 101 or Higher, Inability to urinate, Inability to have a bowel movement, Shortness of breath, Dizziness, Fainting spells, Swelling in the ankles, Chest pain and Uncontrolled pain DC O2, CPAP, BIPAP Needs Home O2 Discharge instructions: No Additional Instructions: Discharge 08/01/2024 pending approval of PASRR results, to [facility], [facility], private pay, part B therapies. Meaningful Use Info Meaningful Use Meaningful Use Diagnoses (Choose all that apply): None applicable Ischemic Stroke Statin Dosing Therapy Reference: STATIN DOSE THERAPY REFERENCE: * Patients > 75 years receive moderate or high dose statin therapy. * Patients 75 years or YOUNGER should receive HIGH intensity statin dose unless contraindicated. You will be required to document reason for non-treatment if statin daily dose does not meet guidelines. HIGH DOSE STATIN THERAPY DAILY Atorvastatin > than or = to 40 mg Rosuvastatin > than or = to 20 mg Amlodipine + Atorvastatin > than or = to 2.5/40 mg Ezetimibe + Simvastatin 10/80 mg Simvastatin 80mg Discharge Plan Admission Admit Date/Time: 07/07/24 21:10 Primary Reason for Your Visit: Debility. Attending Provider: Derik Moses Chi Primary Care Provider: Peng Elder Instructions Additional Instructions / Restrictions: Discharge 08/01/2024 pending approval of PASRR results, to [facility], intermediate, private pay, part B therapies. Discharge Orders/Prescriptions Prescriptions: New furosemide 40 mg Tablet 40 mg PO BIDLX Qty: 0 0RF acetaminophen 325 mg Tablet 650 mg PO Q4H PRN PRN (Reason: pain) Qty: 0 0RF trazodone 50 mg Tablet 50 mg PO QHS Qty: 0 0RF dextromethorphan-guaifenesin 10-100 mg/5 mL Syrup 10 ml PO Q6H PRN PRN (Reason: Cough/Congestion) Qty: 0 0RF nystatin [Nyamyc] 100,000 unit/gram Powder 1 applic topical BID Qty: 0 0RF Protocol: *Topical Application Instructions APPLICATION INSTRUCTIONS: Groin insulin lispro [Humalog KwikPen Insulin] 100 unit/mL Insulin Pen 3 unit subcut BREAKFAST Qty: 0 0RF insulin lispro [Humalog KwikPen Insulin] 100 unit/mL Insulin Pen 8 unit subcut SUPPER Qty: 0 0RF insulin lispro [Humalog KwikPen Insulin] 100 unit/mL Insulin Pen 7 unit subcut LUNCH Qty: 0 0RF menthol-zinc oxide [Calmoseptine] 0.44-20.6 % Ointment 1 applic topical BID Qty: 0 0RF Protocol: *Topical Application Instructions APPLICATION INSTRUCTIONS: Bilateral buttocks, coccyx lactulose 20 gram/30 mL Solution 20 g PO Q72H Qty: 0 0RF Continued clopidogrel 75 mg tablet 75 mg PO DAILY pantoprazole 40 mg tablet,delayed release (DR/EC) 40 mg PO BID rosuvastatin 20 mg tablet 20 mg PO DAILY carvedilol 12.5 mg Tablet 12.5 mg PO BID Qty: 0 0RF midodrine 5 mg Tablet 10 mg PO TIDCM Qty: 0 0RF Xifaxan 550 mg Tablet 550 mg PO BID Qty: 0 0RF Discontinued insulin lispro [Humalog KwikPen Insulin] 100 unit/mL Insulin Pen 1 sliding scale dose subcut ACHS Protocol: 5. Sliding Scale Insulin High Dosing Condition: 150-209 mg/dl = 3 units Condition: 210-259 mg/dl = 6 units Condition: 260-324 mg/dl = 9 units Condition: 325-374 mg/dl = 12 units Condition: 375-409 mg/dl = 14 units Condition: 410-449 mg/dl = 16 units Condition: Greater than 449 call physician Protocol Text: Suggested for: - Patients on Total Daily Insulin Dose of 81-120 units - Very insulin resistant patients HIGH DOSING ALGORITHM Rx Instructions: before meals and at bedtime; glyburide 5 mg tablet 5 mg PO BID ciclopirox 8 % solution 1 applic topical QWEEK melatonin 3 mg Tablet 3 mg PO QHS PRN PRN (Reason: Insomnia) Qty: 0 0RF furosemide 20 mg Tablet 20 mg PO DAILY Qty: 0 0RF spironolactone 50 mg Tablet 50 mg PO DAILY Qty: 0 0RF insulin glargine [Lantus U-100 Insulin] 100 unit/mL solution 10 unit subcut QPM Qty: 10 0RF cefdinir 300 mg capsule 300 mg PO Q12H Qty: 14 0RF Referrals / Follow Up: Peng Elder MD [Primary Care Provider] - Disposition Disposition (needs filled in before D/C Order can be placed): NonSkilled NH/Intermed Care
--- NOTE | 2024-07-27 19:25 | TREXTCAR_ITS ---
Diet Diet Order/Speech Therapy: 07/09/24 10:46 Diet: Carbohydrate Controlled Food consistency:: Regular Liquid Consistency:: Regular/Thin Dietary Modifications:: No Added Salt Potassium Restricted Fluid restriction:: 1000 mL Routine Orders/Code Status Code Status: DNRCC-A (No intubation.) DC O2, CPAP, BIPAP needs Home O2 Discharge instructions: No Wound(s) Left elbow scabs: Wound Type: scabs Right elbow abrasion: Wound Type: Abrasion- scabbed Right inner buttock area: Wound Type: raised area coccyx: Wound Type: Pressure Injury Dressing Change: Calmoseptine LLQ PUNCTURE SITE: Wound Type: Puncture Dressing Change: Dry Sterile Dressing Therapies Weight Bearing: Weight bearing as tolerated Extremity Affected:: Bilateral Lower Physical Therapy: Eval and Treat Occupational Therapy: Eval and Treat Speech Therapy: Eval and Treat Problem/Diagnosis (1) Debility: Status: Acute Code(s): R53.81 - Other malaise (2) Cirrhosis of liver: Status: Acute Code(s): K74.60 - Unspecified cirrhosis of liver Comment: 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 (3) Ascites: Status: Acute Code(s): R18.8 - Other ascites (4) Aortic stenosis, severe: Status: Chronic Code(s): I35.0 - Nonrheumatic aortic (valve) stenosis Comment: Moderate to severe on a transthoracic echocardiogram in February 2020 (5) Acute UTI: Status: Inactive Code(s): N39.0 - Urinary tract infection, site not specified (6) Hyperammonemia: Status: Acute Code(s): E72.20 - Disorder of urea cycle metabolism, unspecified Comment: Due to cirrhosis with hepatic encephalopathy (7) Hepatic encephalopathy: Status: Acute Code(s): K76.82 - Hepatic encephalopathy (8) Portal hypertension: Status: Acute Code(s): K76.6 - Portal hypertension (9) Esophageal varices: Status: Acute Code(s): I85.00 - Esophageal varices without bleeding (10) Essential (primary) hypertension: Status: Acute Code(s): I10 - Essential (primary) hypertension (11) Hyperlipidemia: Status: Acute Code(s): E78.5 - Hyperlipidemia, unspecified (12) Diabetes mellitus: Status: Acute Code(s): E11.9 - Type 2 diabetes mellitus without complications (13) Cardiomyopathy: Status: Chronic Code(s): I42.9 - Cardiomyopathy, unspecified Comment: EF 45% on a transthoracic echocardiogram in February 2024 at the time of STEMI (14) Coronary artery disease: Status: Chronic Code(s): I25.10 - Atherosclerotic heart disease of eek coronary artery without angina pectoris Comment: Had a STEMI in February 2024 (15) 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 * Debility - PT/OT. * Cognition - ST. * Pain - monitor. * Bowel - Dulcolax 10mg pr daily prn, Magnesium citrate 150mL po x 1 prn, MOM 30ml daily prn. * Adult immunization - Administer pneumonia vaccine, covid vaccine, flu vaccine as appropriate. * DVT prophylaxis - Hold, GI bleed. * Hyperlipidemia - Atorvastatin 20mg qhs. * Coronary artery disease s/p stent - Coreg 12.5mg bid, Plavix 75mg daily. * Esophageal varices - Coreg 12.5mg bid. * Ascites - Midodrine 10mg tidcm, Furosemide 20mg daily, Aldactone 50mg daily, no paracentesis 2/2 Plavix. * Diabetes Mellitus II - Glyburide 5mg bid, Glargine 10 units daily. * Insomnia - Melatonin 3mg qhs prn. * Skin irritation - Calmoseptine topical bid. * Tinea corporis - Nystatin powder topical bid. * Duodenal angiodysplasia - Pantoprazole 40mg bid. * Hepatic encephalopathy - Xifaxan 550mg po bid. Allergies/Procedures Done in Hospital Allergies oxycodone Adverse Reaction (Verified 07/13/24 19:41) CONFUSION tramadol Adverse Reaction (Verified 07/13/24 19:41) CONFUSION Procedures: Paracentesis Type of Care/Length of Stay Estimated LOS: More Than 30 Days Type of Care Needed: Intermediate Rehab Potential: Fair Prognosis: Poor Additional Orders/Day of Discharge Additional Orders: part B therapies Day of Discharge: 08/01/24 Dietary and Speech Recommendations Dietitian Recommendations/Changes: Continue Consistent CHO/ No Added Salt diet - rec liberalize K and fluid restriction when medically able Continue to monitor for changes in res nutritional status and make additional rec as indicated Speech Linguistic Eval Summary: Pt. demonstrated variable alertness and was initially resistive to participating in evaluation. He was oriented to self and stated that he was at [facility]. He then corrected himself when ST repeated this response back. He was unable to state the FAUST[place], but knew the date. Poor recall noted with recent daily events, however, pt. was not highly motivated to participate throughout evaluation. ST presented 3 words, and pt. was able to recall 1/3 words after a 2 minute delay. He was able to name 3 animals in [address] presented problem solving questions r/t current living situation. He was unable to locate the call light and was not able to state any reasons for pressing call light, other than to ask the nurse for help but could not elaborate any further. Follow Up Care Please Follow Up With: Dr. Mcgee When: 1 week Discharge Plan Admission Admit Date/Time: 07/07/24 21:10 Primary Reason for Your Visit: Debility. Attending Provider: Derik Moses Chi Primary Care Provider: Peng Eledr Instructions Additional Instructions / Restrictions: Discharge 08/01/2024 pending approval of PASRR results, to [facility], intermediate, private pay, part B therapies. Discharge Orders/Prescriptions Prescriptions: New furosemide 40 mg Tablet 40 mg PO BIDLX Qty: 0 0RF acetaminophen 325 mg Tablet 650 mg PO Q4H PRN PRN (Reason: pain) Qty: 0 0RF trazodone 50 mg Tablet 50 mg PO QHS Qty: 0 0RF dextromethorphan-guaifenesin 10-100 mg/5 mL Syrup 10 ml PO Q6H PRN PRN (Reason: Cough/Congestion) Qty: 0 0RF nystatin [Nyamyc] 100,000 unit/gram Powder 1 applic topical BID Qty: 0 0RF Protocol: *Topical Application Instructions APPLICATION INSTRUCTIONS: Groin insulin lispro [Humalog KwikPen Insulin] 100 unit/mL Insulin Pen 3 unit subcut BREAKFAST Qty: 0 0RF insulin lispro [Humalog KwikPen Insulin] 100 unit/mL Insulin Pen 8 unit subcut SUPPER Qty: 0 0RF insulin lispro [Humalog KwikPen Insulin] 100 unit/mL Insulin Pen 7 unit subcut LUNCH Qty: 0 0RF menthol-zinc oxide [Calmoseptine] 0.44-20.6 % Ointment 1 applic topical BID Qty: 0 0RF Protocol: *Topical Application Instructions APPLICATION INSTRUCTIONS: Bilateral buttocks, coccyx lactulose 20 gram/30 mL Solution 20 g PO Q72H Qty: 0 0RF Continued clopidogrel 75 mg tablet 75 mg PO DAILY pantoprazole 40 mg tablet,delayed release (DR/EC) 40 mg PO BID rosuvastatin 20 mg tablet 20 mg PO DAILY carvedilol 12.5 mg Tablet 12.5 mg PO BID Qty: 0 0RF midodrine 5 mg Tablet 10 mg PO TIDCM Qty: 0 0RF Xifaxan 550 mg Tablet 550 mg PO BID Qty: 0 0RF Discontinued insulin lispro [Humalog KwikPen Insulin] 100 unit/mL Insulin Pen 1 sliding scale dose subcut ACHS Protocol: 5. Sliding Scale Insulin High Dosing Condition: 150-209 mg/dl = 3 units Condition: 210-259 mg/dl = 6 units Condition: 260-324 mg/dl = 9 units Condition: 325-374 mg/dl = 12 units Condition: 375-409 mg/dl = 14 units Condition: 410-449 mg/dl = 16 units Condition: Greater than 449 call physician Protocol Text: Suggested for: - Patients on Total Daily Insulin Dose of 81-120 units - Very insulin resistant patients HIGH DOSING ALGORITHM Rx Instructions: before meals and at bedtime; glyburide 5 mg tablet 5 mg PO BID ciclopirox 8 % solution 1 applic topical QWEEK melatonin 3 mg Tablet 3 mg PO QHS PRN PRN (Reason: Insomnia) Qty: 0 0RF furosemide 20 mg Tablet 20 mg PO DAILY Qty: 0 0RF spironolactone 50 mg Tablet 50 mg PO DAILY Qty: 0 0RF insulin glargine [Lantus U-100 Insulin] 100 unit/mL solution 10 unit subcut QPM Qty: 10 0RF cefdinir 300 mg capsule 300 mg PO Q12H Qty: 14 0RF Referrals / Follow Up: Peng Elder MD [Primary Care Provider] - Disposition Disposition (needs filled in before D/C Order can be placed): NonSkilled NH/Intermed Care (2) Cirrhosis of liver Qualifiers: Hepatic cirrhosis type: unspecified hepatic cirrhosis Ascites presence: with ascites Qualified Code(s): K74.60 - Unspecified cirrhosis of liver; R18.8 - Other ascites (3) Ascites Qualifiers: Ascites type: other type Qualified Code(s): R18.8 - Other ascites (9) Esophageal varices Qualifiers: Esophageal varices type: secondary Esophageal varices bleeding: without bleeding Qualified Code(s): I85.10 - Secondary esophageal varices without bleeding (11) Hyperlipidemia Qualifiers: Hyperlipidemia type: unspecified Qualified Code(s): E78.5 - Hyperlipidemia, unspecified (12) Diabetes mellitus Qualifiers: Diabetes mellitus type: type 2 Diabetes mellitus fdc insulin use: unspecified fdc insulin use status (14) Coronary artery disease Qualifiers: Coronary Disease-Associated Artery/Lesion type: eek artery [place] vs. transplanted heart: eek heart Associated angina: without angina Qualified Code(s): I25.10 - Atherosclerotic heart disease of eek coronary artery without angina pectoris
[2024-07-27 20:00] VITALS: PULSE 74; RESP 16; O2SAT 97
[2024-07-27 21:31] LABS: Bedside Glucose 196 mg/dL (74-106)
[2024-07-27] MEDS: Acetaminophen 325 MG Tablet 650 MG PO (22:53)
[2024-07-27] MEDS: guaiFENesin Dm 10 ML UDC PO (22:53)
[2024-07-27] MEDS: Atorvastatin Calcium 40 MG Tablet PO (22:54)
[2024-07-27] MEDS: traZODone 50 MG Tablet PO (22:54)
[2024-07-27] MEDS: Oseltamivir Phosphate 30 MG Capsule PO (22:54)
[2024-07-28 06:19] VITALS: BP 105/74; PULSE 62
[2024-07-28] MEDS: Furosemide 40 MG Tablet PO ×2 (06:22→13:20)
[2024-07-28 07:02] LABS: Bedside Glucose 167 mg/dL (74-106)
[2024-07-28 08:00] VITALS: BP 91/61; PULSE 72; RESP 16; TEMP 36.3; O2SAT 94
[2024-07-28] MEDS: Carvedilol 12.5 MG Tablet PO ×2 (08:09→17:55)
[2024-07-28] MEDS: Clopidogrel Bisulfate 75 MG Tablet PO (08:09)
[2024-07-28] MEDS: rifAXIMin 550 MG Tablet PO ×2 (08:09→20:00)
[2024-07-28] MEDS: Pantoprazole Sodium 40 MG Tablet PO ×2 (08:09→20:00)
[2024-07-28] MEDS: Nystatin Powder 15gm Bottle 1 APPLIC TOPICAL ×2 (08:10→19:59)
[2024-07-28] MEDS: Menthol/Lanolin/Calamine/Znox 113 GM Tube 1 APPLIC TOPICAL ×2 (08:10→19:59)
[2024-07-28] MEDS: Midodrine HCl 5 MG Tablet 10 MG PO ×3 (08:10→17:55)
[2024-07-28] MEDS: Insulin Lispro 100 UNIT/ML INSULN.PEN SC (08:10)
[2024-07-28] MEDS: Acetaminophen 325 MG Tablet 650 MG PO (08:12)
[2024-07-28 11:49] LABS: Bedside Glucose 194 mg/dL (74-106)
[2024-07-28] MEDS: Insulin Lispro 100 UNIT/ML INSULN.PEN 7 UNIT SC (13:20)
[2024-07-28 13:28] VITALS: BP 132/75; PULSE 68
[2024-07-28 16:48] LABS: Bedside Glucose 198 mg/dL (74-106)
[2024-07-28] MEDS: Insulin Lispro 100 UNIT/ML INSULN.PEN 8 UNIT SC (17:55)
[2024-07-28 18:23] VITALS: BP 108/67; PULSE 68
[2024-07-28] MEDS: traZODone 50 MG Tablet PO (19:59)
[2024-07-28] MEDS: Atorvastatin Calcium 40 MG Tablet PO (20:00)
[2024-07-28] MEDS: Oseltamivir Phosphate 30 MG Capsule PO (20:00)
[2024-07-28 21:47] LABS: Bedside Glucose 122 mg/dL (74-106)
[2024-07-29] MEDS: Furosemide 40 MG Tablet PO ×2 (05:30→12:55)
[2024-07-29 05:59] LABS: Absolute Lymphocyte Count 0.94 X10^3/uL (0.83-4.51); Absolute Neutrophil Count 5.6 X10^3/uL (2.0-7.7); Basophil# 0.03 X10^3/uL; Basophil% 0.4 % (0-1); Eosinophil# 0.15 X10^3/uL; Hematocrit 36.1 % (40-54); Lymphocyte # 0.94 X10^3/ul (0.83-4.51); Lymphocyte % 12.7 % (19-41); Mean Corp Hgb Conc 33.2 g/dL (32-36); Mean Corpuscular Hgb 29.2 pg (27.0-32.0); Mean Corpuscular Volume 87.8 fL (80-94); Mean Platelet Vol. 12.1 fl (6.2-12.0); Monocyte# 0.58 X10^3/uL; Monocyte% 7.9 % (0-10); NRBC Flagged by Analyzer 0 % (0-5); Neutrophil # 5.62 X10^3/uL (2.7-7.7); Neutrophil % 76.2 % (47-70); Platelet Count 207 K/mm3 (150-450); RBC Distribution Width CV 17.2 % (11.6-14.6); RBC Distribution Width SD 53.5 fl (35.1-43.9); Red Blood Count 4.11 M/mm3 (4.6-6.2); White Blood Count 7.4 K/mm3 (4.4-11.0)
[2024-07-29 06:00] VITALS: BMI 24.5
[2024-07-29 06:21] LABS: Bedside Glucose 156 mg/dL (74-106)
[2024-07-29 06:29] LABS: Anion Gap 6 (5-15); BUN 51 mg/dL (7-18); BUN/Creat Ratio 34.5 RATIO (10-20); Chloride 110 mmol/L (98-107); Creatinine, Serum 1.48 mg/dL (0.70-1.30); EST Glomerular Filtration Rate 48 mL/min (>60); Est Glom Filt Rate - Afr Amer 58 mL/min (>60); Estimated Creatinine Clearance 38.36 ml/min; Glucose 71 mg/dL (74-106); Potassium 4.9 mmol/L (3.5-5.1); Sodium Level 137 mmol/L (136-145)
[2024-07-29 08:00] VITALS: BP 117/68; PULSE 67; RESP 18; TEMP 36.2; O2SAT 94
[2024-07-29] MEDS: Midodrine HCl 5 MG Tablet 10 MG PO ×3 (08:01→17:51)
[2024-07-29] MEDS: Carvedilol 12.5 MG Tablet PO ×2 (08:01→17:52)
[2024-07-29] MEDS: Clopidogrel Bisulfate 75 MG Tablet PO (08:06)
[2024-07-29] MEDS: rifAXIMin 550 MG Tablet PO ×2 (08:06→20:02)
[2024-07-29] MEDS: Pantoprazole Sodium 40 MG Tablet PO ×2 (08:06→20:02)
[2024-07-29] MEDS: Lactulose 20 GM/30 ML UDC PO (08:06)
[2024-07-29] MEDS: Insulin Lispro 100 UNIT/ML INSULN.PEN SC (08:07)
[2024-07-29] MEDS: Menthol/Lanolin/Calamine/Znox 113 GM Tube 1 APPLIC TOPICAL ×2 (08:08→20:02)
[2024-07-29] MEDS: Nystatin Powder 15gm Bottle 1 APPLIC TOPICAL ×2 (08:21→20:02)
[2024-07-29 11:55] LABS: Bedside Glucose 211 mg/dL (74-106)
[2024-07-29] MEDS: Insulin Lispro 100 UNIT/ML INSULN.PEN 7 UNIT SC (12:55)
[2024-07-29 13:00] VITALS: BP 112/62; PULSE 70
[2024-07-29 16:55] LABS: Bedside Glucose 157 mg/dL (74-106)
[2024-07-29] MEDS: Insulin Lispro 100 UNIT/ML INSULN.PEN 8 UNIT SC (17:52)
[2024-07-29 17:56] VITALS: BP 113/68; PULSE 71
[2024-07-29] MEDS: traZODone 50 MG Tablet PO (20:02)
[2024-07-29] MEDS: Oseltamivir Phosphate 30 MG Capsule PO (20:02)
[2024-07-29] MEDS: Atorvastatin Calcium 40 MG Tablet PO (20:02)
[2024-07-29 21:53] LABS: Bedside Glucose 123 mg/dL (74-106)
[2024-07-30] MEDS: Furosemide 40 MG Tablet PO ×2 (05:50→13:11)
[2024-07-30 06:18] LABS: Bedside Glucose 156 mg/dL (74-106)
[2024-07-30] MEDS: Midodrine HCl 5 MG Tablet 10 MG PO ×3 (08:13→17:54)
[2024-07-30] MEDS: Menthol/Lanolin/Calamine/Znox 113 GM Tube 1 APPLIC TOPICAL ×2 (08:15→20:24)
[2024-07-30] MEDS: Insulin Lispro 100 UNIT/ML INSULN.PEN SC (08:15)
[2024-07-30] MEDS: Pantoprazole Sodium 40 MG Tablet PO ×2 (08:16→20:26)
[2024-07-30] MEDS: Nystatin Powder 15gm Bottle 1 APPLIC TOPICAL ×2 (08:16→20:26)
[2024-07-30] MEDS: rifAXIMin 550 MG Tablet PO ×2 (08:17→20:26)
[2024-07-30] MEDS: Clopidogrel Bisulfate 75 MG Tablet PO (08:17)
[2024-07-30 08:27] VITALS: BP 95/61; PULSE 75; RESP 16; O2SAT 94
[2024-07-30 08:28] VITALS: BMI 24.4
[2024-07-30] MEDS: Insulin Lispro 100 UNIT/ML INSULN.PEN 7 UNIT SC (12:02)
[2024-07-30 12:24] LABS: Bedside Glucose 165 mg/dL (74-106)
[2024-07-30 12:29] LABS: Bedside Glucose 176 mg/dL (74-106)
[2024-07-30 13:11] VITALS: TEMP 36.4
[2024-07-30 16:47] LABS: Bedside Glucose 140 mg/dL (74-106)
[2024-07-30] MEDS: Insulin Lispro 100 UNIT/ML INSULN.PEN 8 UNIT SC (17:50)
[2024-07-30] MEDS: Carvedilol 12.5 MG Tablet PO (17:54)
[2024-07-30 17:58] VITALS: BP 119/72; PULSE 77
[2024-07-30] MEDS: Atorvastatin Calcium 40 MG Tablet PO (20:26)
[2024-07-30] MEDS: traZODone 50 MG Tablet PO (20:26)
[2024-07-30 20:33] VITALS: PULSE 68; RESP 17; O2SAT 96
[2024-07-30 21:09] LABS: Bedside Glucose 155 mg/dL (74-106)
[2024-07-31] MEDS: Furosemide 40 MG Tablet PO ×2 (06:04→13:32)
[2024-07-31 06:23] LABS: Bedside Glucose 140 mg/dL (74-106)
[2024-07-31 07:00] VITALS: BMI 24.3
[2024-07-31] MEDS: Insulin Lispro 100 UNIT/ML INSULN.PEN SC (08:11)
[2024-07-31] MEDS: Midodrine HCl 5 MG Tablet 10 MG PO ×3 (08:12→17:28)
[2024-07-31] MEDS: Nystatin Powder 15gm Bottle 1 APPLIC TOPICAL ×2 (08:13→21:25)
[2024-07-31] MEDS: Menthol/Lanolin/Calamine/Znox 113 GM Tube 1 APPLIC TOPICAL ×2 (08:13→21:23)
[2024-07-31] MEDS: rifAXIMin 550 MG Tablet PO ×2 (08:14→21:25)
[2024-07-31] MEDS: Pantoprazole Sodium 40 MG Tablet PO ×2 (08:14→21:24)
[2024-07-31] MEDS: Clopidogrel Bisulfate 75 MG Tablet PO (08:14)
[2024-07-31] MEDS: Acetaminophen 325 MG Tablet 650 MG PO (08:19)
[2024-07-31 08:22] VITALS: BP 91/59; PULSE 73; RESP 16; O2SAT 94
[2024-07-31 11:30] VITALS: PULSE 73; RESP 16; O2SAT 94
[2024-07-31] MEDS: Insulin Lispro 100 UNIT/ML INSULN.PEN 7 UNIT SC (11:54)
[2024-07-31 11:55] LABS: Bedside Glucose 170 mg/dL (74-106)
[2024-07-31 13:24] VITALS: TEMP 36.4
[2024-07-31 16:27] LABS: Bedside Glucose 189 mg/dL (74-106)
[2024-07-31] MEDS: Carvedilol 12.5 MG Tablet PO (17:28)
[2024-07-31 17:31] VITALS: BP 114/80; PULSE 76
[2024-07-31] MEDS: Insulin Lispro 100 UNIT/ML INSULN.PEN 8 UNIT SC (17:34)
[2024-07-31] MEDS: Atorvastatin Calcium 40 MG Tablet PO (21:24)
[2024-07-31] MEDS: traZODone 50 MG Tablet PO (21:24)
[2024-07-31 21:39] LABS: Bedside Glucose 138 mg/dL (74-106)
[2024-08-01 06:00] VITALS: BMI 24.3
[2024-08-01 06:14] LABS: Bedside Glucose 173 mg/dL (74-106)
[2024-08-01 06:20] VITALS: BP 115/64; PULSE 65; RESP 17; O2SAT 98
[2024-08-01] MEDS: Furosemide 40 MG Tablet PO (06:25)
[2024-08-01 06:34] VITALS: PULSE 65; RESP 17; O2SAT 98
[2024-08-01 08:00] VITALS: BP 103/61; PULSE 76; RESP 18; TEMP 36.2; O2SAT 94
[2024-08-01] MEDS: rifAXIMin 550 MG Tablet PO (08:15)
[2024-08-01] MEDS: Pantoprazole Sodium 40 MG Tablet PO (08:15)
[2024-08-01] MEDS: Carvedilol 12.5 MG Tablet PO (08:15)
[2024-08-01] MEDS: Midodrine HCl 5 MG Tablet 10 MG PO (08:16)
[2024-08-01] MEDS: Clopidogrel Bisulfate 75 MG Tablet PO (08:16)
[2024-08-01] MEDS: Insulin Lispro 100 UNIT/ML INSULN.PEN SC (08:16)
[2024-08-01] MEDS: Lactulose 20 GM/30 ML UDC PO (08:16)
[2024-08-01] MEDS: Menthol/Lanolin/Calamine/Znox 113 GM Tube 1 APPLIC TOPICAL (08:17)
[2024-08-01] MEDS: Nystatin Powder 15gm Bottle 1 APPLIC TOPICAL (08:17)
[2024-08-01 11:04] VITALS: BP 103/61; PULSE 76; RESP 18; TEMP 36.2; O2SAT 94
[2024-08-01 11:37] LABS: Bedside Glucose 149 mg/dL (74-106)
== END 2024-08-01 12:05 | disposition intermediate care facility (04) | DRG 378 ==
PROVIDERS: Internal Medicine; Admitting Provider Family Medicine Geriatric Medicine; PCP Family Medicine; Visit Provider Family Medicine Geriatric Medicine
DX: K31.811 Angiodysplasia of stomach and duodenum with bleeding (principal); E72.20 Disorder of urea cycle metabolism, unspecified; I42.9 Cardiomyopathy, unspecified; D62 Acute posthemorrhagic anemia; K76.6 Portal hypertension; R18.8 Other ascites; D69.6 Thrombocytopenia, unspecified; K76.82 Hepatic encephalopathy; E11.9 Type 2 diabetes mellitus without complications; D50.9 Iron deficiency anemia, unspecified; I10 Essential (primary) hypertension; E88.01 Alpha-1-antitrypsin deficiency; K31.89 Other diseases of stomach and duodenum; I85.10 Secondary esophageal varices without bleeding; I85.00 Esophageal varices without bleeding; K74.60 Unspecified cirrhosis of liver; E78.00 Pure hypercholesterolemia, unspecified; Z79.4 Long term (current) use of insulin; I25.2 Old myocardial infarction; K76.0 Fatty (change of) liver, not elsewhere classified; I25.10 Atherosclerotic heart disease of native coronary artery without angina pectoris; K21.9 Gastro-esophageal reflux disease without esophagitis; E87.5 Hyperkalemia; K74.69 Other cirrhosis of liver; B35.4 Tinea corporis; Z79.84 Long term (current) use of oral hypoglycemic drugs; Z87.891 Personal history of nicotine dependence; Z79.02 Long term (current) use of antithrombotics/antiplatelets; Z79.899 Other long term (current) drug therapy; G47.00 Insomnia, unspecified; Z23 Encounter for immunization
CPT/HCPCS: 36415; 80048; 80061; 82140; 82962; 83735; 83930; 83935; 84300; 85014; 85018; 85025; 87426; 87633; 87811; 90662; 92507; 92523; 97110; 97116; 97129; 97130; 97162; 97166; 97530; 97535; 97802; A4216

== ENCOUNTER 2024-07-13 19:40 | Emergency (ER) | payer MEDICARE, OTHER, SELFPAY ==
[2024-06-22 14:46] VITALS: BMI 23.1
[2024-07-13 19:40] VITALS: BP 109/62; PULSE 88; RESP 16; TEMP 36.3; O2SAT 98; BMI 27.6
--- NOTE | 2024-07-13 20:09 | CT_ITS ---
INDICATION: abd distension EXAMINATION: CT Abdomen And Pelvis W/O Contrast Injection TECHNIQUE: Helically acquired images were obtained of the abdomen and pelvis without the use of IV contrast. A radiation dose optimization technique was used for this scan. Oral contrast: None. COMPARISON: None FINDINGS: Evaluation of the solid organs and vascular structures is limited without intravenous contrast. Visualized lung bases: Unremarkable Liver: Liver is cirrhotic. Gallbladder: Unremarkable Spleen: Unremarkable Pancreas: Unremarkable Adrenal Glands: Unremarkable Kidneys: Few punctate nonobstructing calculi bilaterally. Vasculature: Severe aortoiliac atherosclerotic disease. GI Tract: Scattered diverticula throughout the colon without evidence of inflammation. Lymphadenopathy: None Peritoneum: Marked ascites. Bladder: Domínguez catheter in place. Reproductive organs: Unremarkable Bones/Soft tissues: There are diffuse degenerative changes of the spine. Small fat-containing left inguinal hernia. CT/Abdomen/Pelvis without Cont IMPRESSION: Cirrhotic liver with evidence of portal hypertension including marked ascites. Few punctate nonobstructing renal calculi bilaterally. Electronically Signed: Roger Reeves MD at 21:31 EST ,
[2024-07-13 20:30] LABS: Absolute Lymphocyte Count 0.79 X10^3/uL (0.83-4.51); Absolute Neutrophil Count 3.6 X10^3/uL (2.0-7.7); Basophil# 0.05 X10^3/uL; Basophil% 0.9 % (0-1); Eosinophil# 0.16 X10^3/uL; Eosinophils% 2.9 % (0-5); Hematocrit 29.3 % (40-54); Hemoglobin 9.2 g/dL (13.0-16.5); Lymphocyte # 0.79 X10^3/ul (0.83-4.51); Lymphocyte % 14.5 % (19-41); Mean Corp Hgb Conc 31.4 g/dL (32-36); Mean Corpuscular Volume 92.4 fL (80-94); Mean Platelet Vol. 9.7 fl (6.2-12.0); Monocyte# 0.83 X10^3/uL; Monocyte% 15.3 % (0-10); NRBC Flagged by Analyzer 0 % (0-5); Neutrophil # 3.58 X10^3/uL (2.7-7.7); Neutrophil % 65.8 % (47-70); POSITIVE MORPHOLOGY YES; Platelet Count 157 K/mm3 (150-450); RBC Distribution Width CV 19.9 % (11.6-14.6); RBC Distribution Width SD 67.7 fl (35.1-43.9); Red Blood Count 3.17 M/mm3 (4.6-6.2); White Blood Count 5.4 K/mm3 (4.4-11.0)
[2024-07-13 20:33] LABS: Differential Indicated SCAN CRITERIA MET
[2024-07-13 20:39] LABS: International Normalized Ratio 1.2; Prothrombin Time (Protime)PT. 15.4 SECONDS (11.7-14.9)
[2024-07-13 20:49] LABS: AST(SGOT) 91 U/L (15-37); Alanine Aminotransfer ALT/SGPT 57 U/L (16-61); Albumin, Serum 2.1 g/dL (3.2-5.0); Alkaline Phosphatase 677 U/L (45-117); Anion Gap 4 (5-15); BUN 26 mg/dL (7-18); BUN/Creat Ratio 15.7 RATIO (10-20); Bilirubin, Direct 0.34 mg/dL (0.00-0.30); Chloride 104 mmol/L (98-107); Creatinine, Serum 1.66 mg/dL (0.70-1.30); EST Glomerular Filtration Rate 42 mL/min (>60); Est Glom Filt Rate - Afr Amer 51 mL/min (>60); Globulin 4.2 g/dL (2.2-4.2); Glucose 217 mg/dL (74-106); Lipase 110 U/L (13-75); Potassium 5.4 mmol/L (3.5-5.1); Protein, Total 6.3 g/dL (6.4-8.2); Sodium Level 134 mmol/L (136-145)
--- NOTE | 2024-07-13 20:51 | EX.ED.DYSGE1 ---
HPI History of Present Illness Chief Complaint: Domínguez C/O Narrative Narrative: Patient sent down from TCU for concerns for difficulty urinating with bladder ultrasound over 800 cc. Discussed with the patient did not know why he was sent down. He states there is discomfort from the Domínguez catheter. This was placed in the ER. Per nursing only 20 cc of output. They did a bladder ultrasound noting 400 cc of urine retention. PFSH PFS Medical History Iron deficiency anemia High cholesterol Diabetes mellitus, type II HTN (hypertension) Ulcer Home Medications ?Medication ?Instructions ?Recorded ?Last Taken ?Type ciclopirox 8 % topical solution 1 applic topical QWEEK Nail fungus 06/29/24 Unknown History clopidogrel 75 mg tablet 75 mg PO DAILY Anticoagulant 06/29/24 Unknown History glyburide 5 mg tablet 5 mg PO BID Diabetes 06/29/24 Unknown History pantoprazole 40 mg tablet,delayed 40 mg PO BID GERD 06/29/24 Unknown History release rosuvastatin 20 mg tablet 20 mg PO DAILY Cholesterol 06/29/24 Unknown History carvedilol 12.5 mg tablet 12.5 mg PO BID Heart #0 tabs 07/07/24 Unknown Rx furosemide 20 mg tablet 20 mg PO DAILY Diuretic #0 tabs 07/07/24 Unknown Rx insulin glargine 100 unit/mL 10 unit (0.1 mL) subcut QPM 07/07/24 Unknown Rx subcutaneous solution (Lantus Diabetes #10 mL U-100 Insulin) insulin lispro 100 unit/mL 1 sliding scale dose subcut ACHS 07/07/24 Unknown History subcutaneous pen (Humalog KwikPen Diabetes (U-100) Insulin) melatonin 3 mg tablet 3 mg PO QHS PRN PRN Insomnia #0 07/07/24 Unknown Rx tabs midodrine 5 mg tablet 10 mg (2 x 5 mg) PO TIDCM Low 07/07/24 Unknown Rx blood pressure #0 tabs rifaximin 550 mg tablet (Xifaxan) 550 mg PO BID IBS #0 tabs 07/07/24 Unknown Rx spironolactone 50 mg tablet 50 mg PO DAILY Diuretic #0 tabs 07/07/24 Unknown Rx cefdinir 300 mg capsule 300 mg PO Q12H #14 caps 07/13/24 Unknown Rx Allergy/AdvReac Type Severity Reaction Status Date / Time oxycodone AdvReac CONFUSION Verified 07/13/24 19:41 tramadol AdvReac CONFUSION Verified 07/13/24 19:41 Surgical History Status post reverse arthroplasty of right shoulder S/P appendectomy Social History household members: spouse Smoking Status: Former smoker alcohol intake: never substance use type: does not use ROS ROS ED Constitutional Constitutional ED: Denies chills, fever(s) or sweats Respiratory/Chest Respiratory/Chest: Denies cough Gastrointestinal Gastrointestinal: Reports other; Denies abdominal pain, diarrhea, nausea or vomiting Genitourinary Genitourinary ED: Denies dysuria, hematuria or urinary frequency Musculoskeletal Musculoskeletal: Denies back pain, extremity pain or neck pain Integumentary Denies rash or wounds Neurologic Neurologic: Denies headache(s), paresthesias or weakness EXAM Physical Exam Const Vital Signs: 07/13/24 19:40 07/13/24 22:43 Temperature 97.4 F L 97.4 F L Temperature Source Oral Pulse Rate 88 88 Respiratory Rate 16 16 Blood Pressure 109/62 109/62 Blood Pressure Mean 77 77 Pulse Ox 98 98 Positive well nourished and well developed General Appearance ED: well developed and NAD HEENT Reports moist mucous membranes normocephalic and atraumatic Eyes General Eye ED: Yes normal appearance of both eyes Neck full ROM Chest Wall Chest: Negative for tenderness Resp normal respiratory effort and normal air movement Effort and Inspection: symmetric chest movement; Negative for respiratory distress Cardio regular rate, regular rhythm and no murmurs Peripheral Pulses: pulses 2+ throughout GI GI Narrative: Abdominal distention Palpation: Negative for guarding or rebound tenderness present Narrative: Domínguez catheter was 20 cc of urine output. Extremity normal to inspection General Extremety ED: Negative for edema or tenderness General Extremity: Negative for edema Neuro no sensory deficits noted Neuro Narrative: Alert to person and place Sensorium / Orientation: awake and alert Skin no rashes or lesions noted and no wounds MDM MDM MDM Narrative Medical decision making narrative: Interventions / MDM: Differential diagnosis: UTI, abdominal ascites, history of cirrhosis. Diagnosis considered but do not suspect: No urine retention My EKG interpretation: N/A Imaging independently reviewed and interpreted by myself: CT abdomen pelvis: Domínguez in the bladder no distention. Abdominal ascites noted. External documents reviewed: N/A Test considered but not ordered:N/A ED course: Bedside ultrasound performed due to discrepancy from bladder ultrasound and urine output. I did not see a distended bladder. However noted diffuse abdominal ascites. Patient poor informant. Ordered for abdominal labs and noncontrast CT scan for further evaluation. After placement orders did note he has history of cirrhosis of the liver. Urine notes signs of infection culture sent given Rocephin white count normal creatinine stable at 1.6. Hemoglobin 9.2 stable from previous. Reviewing records for discharge summary they consider paracentesis while in the hospital however due to dual antiplatelet therapy radiology declined performing this in the hospital. Patient denies any abdominal pain. More discomfort Domínguez catheter, without retention Domínguez catheter was removed. He will be continued on oral antibiotics. This to be relayed back to TCU as ascites is falsely reading the bladder scan. He will have to coordinate outpatient for paracentesis with his dual antiplatelet therapy. Re-evaluation: stable Disposition discussed with patient/family/significant other: Patient Case discussed with consulting clinician: N/A This note was generated with Slingr dictation software. It may contain incorrect words, spelling, and punctuation that were not noted in checking the note before signing. Lab Data Attestation: I reviewed the patient's lab results. Labs: Laboratory Results - last 24 hr 07/13/24 07/13/24 20:19 20:43 WBC 5.4 RBC 3.17 L Hgb 9.2 L Hct 29.3 L MCV 92.4 MCH 29.0 MCHC 31.4 L RDW Std Deviation 67.7 H RDW Coeff of Artemio 19.9 H Plt Count 157 MPV 9.7 Immature Gran % (Auto) 0.600 Neut % (Auto) 65.8 Lymph % (Auto) 14.5 L [place] % (Auto) 15.3 H Eos % (Auto) 2.9 Baso % (Auto) 0.9 Absolute Neuts (auto) 3.6 Absolute Lymphs (auto) 0.79 L Nucleated RBC % 0 Differential Comment SCANNED Platelet Estimate ADEQUATE Polychromasia 1+ Anisocytosis 2+ Target Cells RARE Ovalocytes 1+ Schistocytes RARE PT 15.4 H INR 1.2 APTT 35.5 Sodium 134 L Potassium 5.4 H Chloride 104 Carbon Dioxide 26.0 Anion Gap 4 L BUN 26 H Creatinine 1.66 H Estim Creat Clear Calc 34.20 Est GFR (MDRD) Af Amer 51 L Est GFR (MDRD) Non-Af 42 L BUN/Creatinine Ratio 15.7 Glucose 217 H Calcium 8.0 L Total Bilirubin 0.60 Direct Bilirubin 0.34 H AST 91 H ALT 57 Alkaline Phosphatase 677 H Total Protein 6.3 L Albumin 2.1 L Globulin 4.2 Lipase 110 H Urine Color Yellow Urine Clarity Clear Urine pH 6.0 Ur Specific [place] 1.015 Urine Protein 30 H Urine Glucose (UA) Normal Urine Ketones Negative Urine Occult Blood 250 H Urine Nitrite Negative Urine Bilirubin Negative Urine Urobilinogen Normal Ur Leukocyte Esterase 100 H Urine RBC > 100 SEEN Urine WBC 50-100 SEEN Ur Squamous Epith Cells 10-25 SEEN Ur Transition Epith Cell 10-25 SEEN Urine Bacteria 1+ Hyaline Casts 5-10 SEEN Urine Mucus 2+ Radiography Diagnostic Testing: Clinical Impression(s) from Imaging Studies Abdomen/Pelvis CT 07/13/24 20:09 IMPRESSION: Cirrhotic liver with evidence of portal hypertension including marked ascites. Few punctate nonobstructing renal calculi bilaterally. Electronically Signed: Roger Reeves MD at 21:31 EST , Discharge Plan Triage Chief Complaint: Domínguez C/O ED Provider: William Jacome Dx/Rx/DC Orders Clinical Impression: Acute UTI, Cirrhosis of liver, Ascites Instructions: Urinary Tract Infections in Men, ED Ascites Prescriptions: New cefdinir 300 mg capsule 300 mg PO Q12H Qty: 14 0RF No Action insulin lispro [Humalog KwikPen Insulin] 100 unit/mL Insulin Pen 1 sliding scale dose subcut ACHS Protocol: 5. Sliding Scale Insulin High Dosing Condition: 150-209 mg/dl = 3 units Condition: 210-259 mg/dl = 6 units Condition: 260-324 mg/dl = 9 units Condition: 325-374 mg/dl = 12 units Condition: 375-409 mg/dl = 14 units Condition: 410-449 mg/dl = 16 units Condition: Greater than 449 call physician Protocol Text: Suggested for: - Patients on Total Daily Insulin Dose of 81-120 units - Very insulin resistant patients HIGH DOSING ALGORITHM Rx Instructions: before meals and at bedtime; glyburide 5 mg tablet 5 mg PO BID clopidogrel 75 mg tablet 75 mg PO DAILY ciclopirox 8 % solution 1 applic topical QWEEK pantoprazole 40 mg tablet,delayed release (DR/EC) 40 mg PO BID rosuvastatin 20 mg tablet 20 mg PO DAILY carvedilol 12.5 mg Tablet 12.5 mg PO BID Qty: 0 0RF midodrine 5 mg Tablet 10 mg PO TIDCM Qty: 0 0RF melatonin 3 mg Tablet 3 mg PO QHS PRN PRN (Reason: Insomnia) Qty: 0 0RF furosemide 20 mg Tablet 20 mg PO DAILY Qty: 0 0RF spironolactone 50 mg Tablet 50 mg PO DAILY Qty: 0 0RF Xifaxan 550 mg Tablet 550 mg PO BID Qty: 0 0RF insulin glargine [Lantus U-100 Insulin] 100 unit/mL solution 10 unit subcut QPM Qty: 10 0RF Primary Care Provider: Peng Elder Referrals: Peng Elder MD [Primary Care Provider] - Activity Restrictions/Additional Instructions: Bladder was not distended. Only 20 cc came out from Domínguez placement. Patient has ascites in his abdomen likely being measured with cirrhosis history. Urine with infection status post IV Rocephin. Take antibiotic as prescribed. Urine culture sent. Review of records, due to being on dual antiplatelet therapy, no paracentesis was performed while in the hospital. Will need to coordinate with cardiology paracentesis if he develops abdominal pain or worsening distention. Print Language: Macedonian Disposition Disposition: Longterm Facility Discharge Location: [facility] Transitional Care Unit Discharge Date/Time: 07/13/24 23:02
[2024-07-13 20:54] LABS: Partial Thromboplast Time 35.5 Seconds (24.1-36.2)
[2024-07-13 20:58] LABS: Color, Urine Yellow (Yellow); Glucose, Dipstick Normal (Normal); Ketone-Dipstick Negative (Negative); Leukocyte Esterase-Dipstick 100 /ul (Negative); Nitrite-Dipstick Negative (Negative); Occult Blood-Urine 250 /ul (Negative); Protein-Dipstick 30 mg/dl (Negative); Specific Gravity, Urine 1.015 (1.002-1.030); Urine Bilirubin Dipstick Negative (Negative); Urine Clarity Clear (Clear); Urine Urobilinogen Normal (Normal)
[2024-07-13 21:05] LABS: White Blood Cells 50-100 SEEN /hpf (0-5)
[2024-07-13 21:06] LABS: Bacteria 1+ /hpf (None Seen); Hyaline Cast 5-10 SEEN /lpf (0-5); Mucous, Urine 2+ /hpf (<or=2+); Red Blood Cells-Urine > 100 SEEN /hpf (0-5); Squamous Epithelial Cells - UA 10-25 SEEN /hpf (0-5); Transitional Epithelial - Ur 10-25 SEEN /hpf (0-5)
[2024-07-13 21:12] LABS: Anisocytosis 2+; Differential Comment SCANNED; Ovalocyte 1+; Platelet Estimate ADEQUATE (ADEQ); Polychromasia 1+; Schistocytes RARE
[2024-07-13 21:13] LABS: Target Cells RARE
[2024-07-13] MEDS: Ceftriaxone 1 GM/50 ML BAG IV (21:48)
--- NOTE | 2024-07-13 22:42 | ED.RN ---
Domínguez removed per Dr. Jacome's orders. Report called to TCU
[2024-07-13 22:43] VITALS: BP 109/62; PULSE 88; RESP 16; TEMP 36.3; O2SAT 98
== END 2024-07-13 23:02 | disposition skilled nursing facility (03) ==
PROVIDERS: Emergency Provider Emergency Medicine; PCP Family Medicine; Visit Provider Emergency Medicine
DX: N39.0 Urinary tract infection, site not specified (principal); K74.60 Unspecified cirrhosis of liver; E11.9 Type 2 diabetes mellitus without complications; Z79.4 Long term (current) use of insulin; Z87.891 Personal history of nicotine dependence; E78.00 Pure hypercholesterolemia, unspecified; I10 Essential (primary) hypertension; Z79.899 Other long term (current) drug therapy; R18.8 Other ascites
CPT/HCPCS: 74176; 80048; 80076; 81001; 83690; 85025; 85610; 85730; 87086; 96365; 99283; A4216

== ENCOUNTER → 2024-07-15 | Outpatient (CLI) | payer MEDICARE, OTHER, SELFPAY ==
[2024-06-22 14:46] VITALS: BMI 23.1
[2024-07-15] MEDS: Lidocaine 2% (20 ml mdv) 20 ML Vial INFILT (13:30)
[2024-07-15 14:22] VITALS: BP 128/56; PULSE 64; RESP 18; TEMP 36.1; O2SAT 97
[2024-07-15 14:26] VITALS: BP 134/50; BP 135/57; PULSE 62; PULSE 66; RESP 18; O2SAT 98; O2SAT 99
== END | disposition home or self-care (01) ==
LOC: US 13:15
PROVIDERS: PCP Family Medicine; Referring Provider Internal Medicine; Visit Provider Internal Medicine
DX: R18.8 Other ascites (principal)
CPT/HCPCS: 49083

== ENCOUNTER 2024-07-22 08:29 | Outpatient (RCR) | payer MEDICARE, OTHER, SELFPAY ==
[2024-06-22 14:46] VITALS: BMI 23.1
== END 2024-08-19 23:59 ==
LOC: CR 08:29
PROVIDERS: PCP Family Medicine; Referring Provider Internal Medicine Cardiovascular Disease; Visit Provider Internal Medicine Cardiovascular Disease
DX: I21.02 ST elevation (STEMI) myocardial infarction involving left anterior descending coronary artery (principal)

== ENCOUNTER → 2024-08-02 05:00 | Outpatient (REF) | payer MEDICARE, OTHER, SELFPAY ==
[2024-06-22 14:46] VITALS: BMI 23.1
[2024-08-02 08:21] LABS: Hemoglobin 9.4 g/dL (13.0-16.5); Mean Corp Hgb Conc 32.4 g/dL (32-36); Mean Corpuscular Hgb 29.7 pg (27.0-32.0); Mean Corpuscular Volume 91.5 fL (80-94); Mean Platelet Vol. 10.5 fl (6.2-12.0); POSITIVE MORPHOLOGY YES; Platelet Count 154 K/mm3 (150-450); RBC Distribution Width CV 19.6 % (11.6-14.6); RBC Distribution Width SD 65.2 fl (35.1-43.9); Red Blood Count 3.17 M/mm3 (4.6-6.2); White Blood Count 4.1 K/mm3 (4.4-11.0)
[2024-08-02 08:24] LABS: Scan Indicated on CBC? Y/N YES- FLAGS NOTED
[2024-08-02 08:35] LABS: ALB/GLOB Ratio 0.5 RATIO (0.9-2.4); AST(SGOT) 66 U/L (15-37); Alanine Aminotransfer ALT/SGPT 44 U/L (16-61); Albumin, Serum 1.9 g/dL (3.2-5.0); Alkaline Phosphatase 660 U/L (45-117); Anion Gap 6 (5-15); BUN 40 mg/dL (7-18); BUN/Creat Ratio 23.7 RATIO (10-20); Calcium,Total 8.3 mg/dL (8.5-10.1); Chloride 106 mmol/L (98-107); Creatinine, Serum 1.69 mg/dL (0.70-1.30); EST Glomerular Filtration Rate 41 mL/min (>60); Est Glom Filt Rate - Afr Amer 50 mL/min (>60); Globulin 4.2 g/dL (2.2-4.2); Glucose 197 mg/dL (74-106); Potassium 3.8 mmol/L (3.5-5.1); Protein, Total 6.1 g/dL (6.4-8.2); Sodium Level 140 mmol/L (136-145)
[2024-08-02 09:31] LABS: Hemoglobin A1c 6.6 % (3.8-5.6)
== END ==
LOC: OLS.ACH 05:00
PROVIDERS: PCP Family Medicine; Visit Provider Internal Medicine
DX: K76.82 Hepatic encephalopathy (principal); I11.9 Hypertensive heart disease without heart failure; K74.60 Unspecified cirrhosis of liver; E11.9 Type 2 diabetes mellitus without complications; E87.5 Hyperkalemia
CPT/HCPCS: 36415; 80053; 82140; 83036; 85027

== ENCOUNTER → 2024-08-05 05:00 | Outpatient (REF) | payer MEDICARE, OTHER, SELFPAY ==
[2024-06-22 14:46] VITALS: BMI 23.1
[2024-08-05 08:38] LABS: Anion Gap 5 (5-15); BUN 39 mg/dL (7-18); BUN/Creat Ratio 25.8 RATIO (10-20); Calcium,Total 8.4 mg/dL (8.5-10.1); Chloride 107 mmol/L (98-107); Creatinine, Serum 1.51 mg/dL (0.70-1.30); EST Glomerular Filtration Rate 47 mL/min (>60); Est Glom Filt Rate - Afr Amer 57 mL/min (>60); Glucose 199 mg/dL (74-106); Sodium Level 139 mmol/L (136-145)
== END ==
LOC: OLS.ACH 05:00
PROVIDERS: PCP Family Medicine; Visit Provider Internal Medicine
DX: K76.82 Hepatic encephalopathy (principal); I11.9 Hypertensive heart disease without heart failure; E78.5 Hyperlipidemia, unspecified
CPT/HCPCS: 36415; 80048

== ENCOUNTER → 2024-08-09 05:00 | Outpatient (REF) | payer MEDICARE, OTHER, SELFPAY ==
[2024-06-22 14:46] VITALS: BMI 23.1
[2024-08-09 08:47] LABS: Hematocrit 29.8 % (40-54); Hemoglobin 9.6 g/dL (13.0-16.5); Mean Corp Hgb Conc 32.2 g/dL (32-36); Mean Corpuscular Volume 93.1 fL (80-94); Mean Platelet Vol. 10.6 fl (6.2-12.0); POSITIVE MORPHOLOGY YES; Platelet Count 116 K/mm3 (150-450); RBC Distribution Width CV 19.4 % (11.6-14.6); RBC Distribution Width SD 65.7 fl (35.1-43.9); White Blood Count 3.5 K/mm3 (4.4-11.0)
[2024-08-09 08:53] LABS: Scan Indicated on CBC? Y/N YES- FLAGS NOTED
[2024-08-09 08:57] LABS: Anion Gap 6 (5-15); BUN 41 mg/dL (7-18); BUN/Creat Ratio 26.8 RATIO (10-20); Calcium,Total 8.6 mg/dL (8.5-10.1); Chloride 107 mmol/L (98-107); Creatinine, Serum 1.53 mg/dL (0.70-1.30); EST Glomerular Filtration Rate 46 mL/min (>60); Est Glom Filt Rate - Afr Amer 56 mL/min (>60); Glucose 196 mg/dL (74-106); Potassium 3.8 mmol/L (3.5-5.1); Sodium Level 140 mmol/L (136-145)
== END ==
LOC: OLS.ACH 05:00
PROVIDERS: PCP Family Medicine; Visit Provider Internal Medicine
DX: I11.9 Hypertensive heart disease without heart failure (principal); K76.82 Hepatic encephalopathy; D63.8 Anemia in other chronic diseases classified elsewhere; R18.8 Other ascites
CPT/HCPCS: 36415; 80048; 82140; 85027

== ENCOUNTER → 2024-08-24 05:00 | Outpatient (REF) | payer MEDICARE, OTHER, SELFPAY ==
[2024-06-22 14:46] VITALS: BMI 23.1
[2024-08-24 07:06] LABS: Hematocrit 30.7 % (40-54); Hemoglobin 9.9 g/dL (13.0-16.5); Mean Corp Hgb Conc 32.2 g/dL (32-36); Mean Corpuscular Hgb 30.4 pg (27.0-32.0); Mean Corpuscular Volume 94.2 fL (80-94); POSITIVE MORPHOLOGY YES; Platelet Count 157 K/mm3 (150-450); RBC Distribution Width CV 18.7 % (11.6-14.6); RBC Distribution Width SD 65.8 fl (35.1-43.9); Red Blood Count 3.26 M/mm3 (4.6-6.2); White Blood Count 4.9 K/mm3 (4.4-11.0)
[2024-08-24 07:18] LABS: Anion Gap 4 (5-15); BUN 37 mg/dL (7-18); BUN/Creat Ratio 27.6 RATIO (10-20); Calcium,Total 8.4 mg/dL (8.5-10.1); Chloride 106 mmol/L (98-107); Creatinine, Serum 1.34 mg/dL (0.70-1.30); EST Glomerular Filtration Rate 54 mL/min (>60); Est Glom Filt Rate - Afr Amer 65 mL/min (>60); Glucose 87 mg/dL (74-106); Potassium 4.2 mmol/L (3.5-5.1); Sodium Level 139 mmol/L (136-145)
[2024-08-24 07:24] LABS: Scan Indicated on CBC? Y/N YES- FLAGS NOTED
== END ==
LOC: OLS.ACH 05:00
PROVIDERS: PCP Family Medicine; Visit Provider Internal Medicine
DX: K31.811 Angiodysplasia of stomach and duodenum with bleeding (principal)
CPT/HCPCS: 36415; 80048; 85027

== ENCOUNTER → 2024-09-05 05:00 | Outpatient (REF) | payer MEDICARE, OTHER, SELFPAY ==
[2024-06-22 14:46] VITALS: BMI 23.1
== END ==
LOC: OLS.ACH 05:00
PROVIDERS: PCP Family Medicine; Visit Provider Internal Medicine
DX: K76.82 Hepatic encephalopathy (principal); D63.8 Anemia in other chronic diseases classified elsewhere
CPT/HCPCS: 36415; 82140

== ENCOUNTER → 2024-09-12 05:00 | Outpatient (REF) | payer MEDICARE, OTHER, SELFPAY ==
[2024-06-22 14:46] VITALS: BMI 23.1
== END ==
LOC: OLS.ACH 05:00
PROVIDERS: PCP Family Medicine; Visit Provider Internal Medicine
DX: K76.82 Hepatic encephalopathy (principal)
CPT/HCPCS: 36415; 82140